=== PATIENT | female | born 1980 | race Two or more races ===

== ENCOUNTER 2020-04-15 08:15 | Outpatient (REF) | payer OTHER, SELFPAY | END 2020-04-15 08:16 | disposition home or self-care (01) | LOC: HO.LAB 08:15 | PROVIDERS: Visit Provider Internal Medicine | DX: Z20.822 Contact with and (suspected) exposure to COVID-19 (principal) | CPT/HCPCS: 36415; C9803; U0003; U0005 ==

== ENCOUNTER 2020-04-26 07:51 | Outpatient (REF) | payer OTHER, SELFPAY | END 2020-04-26 07:52 | disposition home or self-care (01) | LOC: HO.LAB 07:51 | PROVIDERS: Visit Provider Internal Medicine | DX: Z20.822 Contact with and (suspected) exposure to COVID-19 (principal) | CPT/HCPCS: 36415; C9803; U0003; U0005 ==

== ENCOUNTER 2021-02-24 10:10 | Outpatient (REF) | payer OTHER, SELFPAY ==
[2021-02-24 11:44] LABS: COVID-19 Test Positive (Negative); IDNOW Serial# 55D5AD1C
== END 2021-02-24 10:11 | disposition home or self-care (01) ==
LOC: HO.LAB 10:10
PROVIDERS: Visit Provider Internal Medicine
DX: Z20.822 Contact with and (suspected) exposure to COVID-19 (principal)
CPT/HCPCS: 36415; 87635; C9803

== ENCOUNTER 2021-03-09 13:16 | Outpatient (REF) | payer OTHER, SELFPAY ==
[2021-03-09 14:46] LABS: Binax Internal Control QC Valid; Binax Now Covid-19 Ag Negative (Negative)
== END 2021-03-09 13:17 | disposition home or self-care (01) ==
LOC: HO.LAB 13:16
PROVIDERS: Visit Provider Internal Medicine
DX: Z20.822 Contact with and (suspected) exposure to COVID-19 (principal)
CPT/HCPCS: C9803

== ENCOUNTER 2021-07-14 15:34 | Outpatient (REF) | payer OTHER, SELFPAY ==
--- NOTE | ~2021-07-14 | MM_ITS ---
EXAMINATION: MM SCREENING DIGITAL BREAST TOMOSYNTHESIS, BILATERAL CLINICAL INFORMATION: Screening. Asymptomatic. The lifetime risk of breast cancer based on the Tyrer-Cuzick Model is 8%. COMPARISON: Mammography: 01/09/2014 TECHNIQUE: Digital breast tomosynthesis is performed in both the craniocaudal and mediolateral oblique views along with computer-aided detection (CAD). Synthesized 2D images are generated from the tomosynthesis. FINDINGS: There are scattered areas of fibroglandular density (ACR BI-RADS breast composition Category b). There are no significant masses, abnormal calcifications, or other abnormalities. No developing density or interval architectural abnormality. The axilla and skin contours are unremarkable. No significant changes. MM/MM tomosynthesis screening BI IMPRESSION: No mammographic evidence of malignancy. ASSESSMENT: BI-RADS 1: Negative RECOMMENDATION: Routine annual mammography screening. This patient's information was entered into a reminder system with a target due date for their next mammogram.
== END 2021-07-14 15:35 | disposition home or self-care (01) ==
LOC: HO.MAMMO 15:34
DX: Z12.31 Encounter for screening mammogram for malignant neoplasm of breast (principal)
CPT/HCPCS: 77063; 77067

== ENCOUNTER 2021-09-20 08:16 | Outpatient (REF) | payer OTHER, SELFPAY ==
[2021-09-20 09:40] LABS: HBsAGNum1 0.34 S/CO (0.00-0.99); HIV AB/AG Nonreactive (Nonreactive); HIV Num 1 0.07 S/CO (0.00-0.99); Hepatitis B Surface Antigen Negative (Negative); ~HepC Num1 0.09 S/CO (0.00-0.79); ~Hepatitis C Antibody Nonreactive (Nonreactive)
[2021-09-20 18:33] LABS: CT PCR NOT DETECTED (Not Detect.); NG PCR NOT DETECTED (Not Detect.)
[2021-09-21 07:05] LABS: Syphilis Screen Nonreactive (Nonreactive)
[2021-09-21 13:04] LABS: BV Int Neg Control Negative (Negative); BV Int Pos Control Positive (Positive)
[2021-09-26 23:27] LABS: HPV mRNA E6/E7 rflx Not Detected (Not Detected)
== END 2021-09-20 08:17 | disposition home or self-care (01) ==
LOC: HO.LAB 08:16
PROVIDERS: Visit Provider Obstetrics & Gynecology
DX: Z01.419 Encounter for gynecological examination (general) (routine) without abnormal findings (principal); Z11.51 Encounter for screening for human papillomavirus (HPV); Z11.3 Encounter for screening for infections with a predominantly sexual mode of transmission
CPT/HCPCS: 36415; 86780; 86803; 87340; 87389; 87480; 87491; 87510; 87591; 87624; 87660; 88142

== ENCOUNTER 2022-04-25 13:48 | Outpatient (REF) | payer OTHER, SELFPAY ==
[2022-04-25 15:08] LABS: Hematocrit 36.4 % (37.0-47.0); Hemoglobin 11.7 g/dl (12.0-16.0); Mean Corpuscular HGB Conc 32.1 g/dl (31.0-35.0); Mean Corpuscular Hemoglobin 27.7 pg (27.0-33.0); Mean Corpuscular Volume 86.1 fL (80.0-98.0); Platelet Count 261 X10*3/uL (160-400); Red Blood Count 4.23 X10*6/uL (4.20-5.50); Red Cell Distribution Width 16.2 % (11.0-16.0); White Blood Count 7.1 X10*3/uL (4.8-10.8)
[2022-04-25 16:05] LABS: HCG Quantitative < 2 mIU/mL; TSH reflex Free T4 0.63 uIU/mL (0.32-4.0)
[2022-04-25 18:37] LABS: CT PCR NOT DETECTED (Not Detect.); NG PCR NOT DETECTED (Not Detect.)
== END 2022-04-25 13:49 | disposition home or self-care (01) ==
LOC: HO.LNP 13:48
PROVIDERS: Visit Provider Obstetrics & Gynecology
DX: N93.9 Abnormal uterine and vaginal bleeding, unspecified (principal); Z11.3 Encounter for screening for infections with a predominantly sexual mode of transmission
CPT/HCPCS: 0353U; 84443; 84702; 85027; 99212

== ENCOUNTER 2022-04-30 15:57 | Emergency (ER) | payer OTHER, SELFPAY ==
--- NOTE | ~2022-04-30 | US_ITS ---
EXAMINATION: US PELVIS CLINICAL INFORMATION: Left lower quadrant pain. LMP 04/17/2022. COMPARISON: CT abdomen/pelvis 11/19/2018. TECHNIQUE: Ultrasound of the pelvis is performed using both transabdominal and transvaginal transducers along with Doppler. Transvaginal imaging is performed due to inadequate visualization transabdominally. FINDINGS: The uterus is anteverted and measures 8.2 x 5 x 7 cm. There is suggestion of diffuse thickness and heterogeneity of the junctional zone/myometrium. No focal uterine mass. The endometrium measures 0.5 cm in thickness. Nabothian cysts are identified in the cervix. The ovaries are normal in morphology with preserved flow at the moment of this examination. The right ovary measures 2.5 x 1.6 x 2.8 cm, 6 mL and the left ovary measures 3.5 x 1.8 x 2.3 cm, 7.6 mL. Multiple bilateral follicles are noted. No suspicious ovarian lesion. No free fluid. US/US pelvic and transvaginal IMPRESSION: 1. No evidence of ovarian torsion at the moment of this examination. 2. Suggestion of diffuse thickening and heterogeneity of the junctional zone/myometrium which could be seen in the setting of adenomyosis in the appropriate clinical context. If indicated, correlation with an MR of the pelvis with and without intravenous contrast could be obtained.
--- NOTE | 2022-04-30 16:28 | ED.ABDPAIN ---
HPI - Abdominal Pain General Chief Complaint: Urogenital-Female <Danica Chavez NP - Last Filed: 04/30/22 16:31> Stated Complaint: abd, back and vaginal pain, left breast pressure <Danica Chavez NP - Last Filed: 04/30/22 16:31> Time Seen by Provider: 04/30/22 17:10 <Danica Chavez NP - Last Filed: 04/30/22 16:31> Source: patient <Rubén Holguin MD - Last Filed: 04/30/22 20:06> Mode of arrival: ambulatory <Rubén Holguin MD - Last Filed: 04/30/22 20:06> Limitations: no limitations <Rubén Holguin MD - Last Filed: 04/30/22 20:06> History of Present Illness HPI narrative: 41-year-old female who presents emergency department for irregular vaginal bleeding, body, weakness and fatigue. The patient states that last year her menstrual periods became heavier than usual and she thought that it was secondary to being premenopausal. She states that she did not have a menstrual period since October 2021 and then she started bleeding approximately 2 weeks prior. She states that the bleeding was heavier than usual and she had large blood clots. She also had pelvic pain. She was seen on 04/25/[address]YN Dr. Ashlee Issa and I did review his office note. She was diagnosed with irregular menstrual bleeding and had a workup which included labs and was scheduled for an outpatient ultrasound. Patient came to emergency department today because she states that she is having diffuse body pain. She states she is having pain in both of her shoulders and upper back. She is also having pain in her legs bilaterally. She states she had subjective fever but no chills, she has had a nonproductive cough, she states she has chest pain with coughing. She states she had several episodes of vomiting and diarrhea 2 days prior. She states that her vaginal bleeding has resolved. She states she has been taking ibuprofen 800 mg 3 times a day with no relief of her pain. She was concerned about her pain so she came to the emergency department for evaluation. <Rubén Holguin MD - Last Filed: 04/30/22 20:06> Related Data Home Medications: Home Medications Medication Instructions Recorded Confirmed albuterol sulfate 90 mcg/actuation 2 puff inhalation Q6H PRN 09/20/21 aerosol inhaler Previous Rx's Medication Instructions Recorded metronidazole 500 mg tablet 500 mg PO BID 7 days #14 tabs 09/21/21 fluconazole 150 mg tablet 150 mg PO ONCE 1 day #1 tab 11/15/21 ondansetron 4 mg disintegrating 4 mg PO Q6-8H PRN nausea and 04/30/22 tablet vomiting #14 tabs oxycodone 5 mg tablet 5 mg PO Q4H PRN pain #10 tabs 04/30/22 <Danica Chavez NP - Last Filed: 04/30/22 16:31> Allergies/Adverse Reactions: Allergies Allergy/AdvReac Type Severity Reaction Status Date / Time No Known Allergies Allergy Unverified 04/25/22 13:58 <Danica Chavez NP - Last Filed: 04/30/22 16:31> Review of Systems Review of Systems Yes all other systems are reviewed and are negative <Rubén Holguin MD - Last Filed: 04/30/22 20:06> [facility] Past Medical History [facility] Narrative: Past medical history: None. Past surgical history: None. Social history: She occasionally smokes cigarettes. She occasionally drinks alcohol. She denies drug use. <Rubén Holguin MD - Last Filed: 04/30/22 20:06> Medical History: Medical History Asthma <Danica Chavez NP - Last Filed: 04/30/22 16:31> Surgical History: Surgical History H/O tubal ligation <Danica Chavez NP - Last Filed: 04/30/22 16:31> Family History Family History: Family History Mother Diabetes HTN (hypertension) Asthma <Danica Chavez NP - Last Filed: 04/30/22 16:31> Social History Social History: Social History Household Members: Children Housing: [facility] Alcohol intake: current Alcohol intake frequency: holidays/special occasions only Patient Tobacco Use Status: Current everyday Tobacco user Tobacco use type: Cigarette Cigarettes Per Day: 2 Years Smoked: 10 Advance Directives: No Advance Directives Information Provided: Yes <Danica Chavez NP - Last Filed: 04/30/22 16:31> Physical Exam ED Vital Signs: Vital Signs - 24 hr 04/30/22 16:29 04/30/22 17:15 Temperature 98 F 98.2 F Pulse Rate 71 71 Respiratory Rate 18 18 Blood Pressure 173/80 H 123/71 Pulse Oximetry 98 99 Oxygen Delivery Method Room Air Room Air BMI result Body Mass Index 26.6 <Danica Chavez NP - Last Filed: 04/30/22 16:31> Vital Signs - 24 hr 04/30/22 16:29 04/30/22 17:15 Temperature 98 F 98.2 F Pulse Rate 71 71 Respiratory Rate 18 18 Blood Pressure 173/80 H 123/71 Pulse Oximetry 98 99 Oxygen Delivery Method Room Air Room Air BMI result Body Mass Index 26.6 <Rubén Holguin MD - Last Filed: 04/30/22 20:06> Const Other: Awake, alert, female patient, she does not appear to be in distress, she answers all questions appropriately <Rubén Holguin MD - Last Filed: 04/30/22 20:06> HENMT Head: Yes normal to inspection, Yes normocephalic and Yes atraumatic <Rubén Holguin MD - Last Filed: 04/30/22 20:06> Ears: external ears normal <Rubén Holguin MD - Last Filed: 04/30/22 20:06> General nose exam: Normal external nose present <Rubén Holguin MD - Last Filed: 04/30/22 20:06> Face and sinus: Yes normal facial exam <Rubén Holguin MD - Last Filed: 04/30/22 20:06> Mouth: Normal oral and palatal mucosa present <MD Oneida Degroot Last Filed: 04/30/22 20:06> Throat: Yes posterior oropharynx normal <MD Oneida Degroot Last Filed: 04/30/22 20:06> Eyes General: appearance normal, both eyes and all related structures <MD Oneida Degroot Last Filed: 04/30/22 20:06> Pupils: Equal, round and reactive pupils present <MD Oneida Degroot Last Filed: 04/30/22 20:06> Neck Neck: Yes normal visual inspection, Yes no lymphadenopathy, Yes trachea midline and Yes supple <MD Oneida Degroot Last Filed: 04/30/22 20:06> Chest Chest palpation & inspection: normal inspection of the chest and normal palpation of entire chest wall <MD Oneida Degroot Last Filed: 04/30/22 20:06> Resp Effort & Inspection: normal respiratory effort and able to speak in complete sentences <MD Oneida Degroot Last Filed: 04/30/22 20:06> Auscultation: clear to auscultation bilaterally <MD Oneida Degroot Last Filed: 04/30/22 20:06> Cardio Rate: regular rate <MD Oneida Degroot Last Filed: 04/30/22 20:06> Rhythm: regular rhythm <MD Oneida Degroto Last Filed: 04/30/22 20:06> Heart sounds: S1 normal heart sound present, S2 normal heart sound present and no murmurs <MD Oneida Degroot Last Filed: 04/30/22 20:06> GI Inspection: Yes normal to inspection <MD Oneida Degroot Last Filed: 04/30/22 20:06> Palpation (GI): Soft to palpation, Tenderness to palpation present (GI) (Mild suprapubic tenderness) and no guarding <MD Oneida Degroot Last Filed: 04/30/22 20:06> Auscultation: normal bowel sounds <MD Oneida Degroot Last Filed: 04/30/22 20:06> General: Yes no CVA tenderness <MD Oneida Degroot Last Filed: 04/30/22 20:06> Back/Spine/Pelvis Back: no CVA tenderness <Rubén Holguin MD - Last Filed: 04/30/22 20:06> Skin General skin exam: no rashes or lesions noted <Rubén Holguin MD - Last Filed: 04/30/22 20:06> Neuro Cranial nerves: Yes CN's II-XII intact bilaterally and Yes Equal, round and reactive pupils present <Rubén Holguin MD - Last Filed: 04/30/22 20:06> Cognition (Neuro): normal cognition <Rubén Holguin MD - Last Filed: 04/30/22 20:06> Motor exam (neuro): 5/5 motor strength present throughout <Rubén Holguin MD - Last Filed: 04/30/22 20:06> Extrem Other: Patient has tenderness palpation of her shoulders bilaterally, muscles of her thoracic back, muscles of her thighs, no trauma, she has full range of motion, she is able walk without any difficulty <Rubén Holguin MD - Last Filed: 04/30/22 20:06> Psych Appearance: grossly normal <Rubén Holguin MD - Last Filed: 04/30/22 20:06> Speech and movement: Normal speech and movement present <Rubén Holguin MD - Last Filed: 04/30/22 20:06> Affect: normal affect <Rubén Holguin MD - Last Filed: 04/30/22 20:06> Attitude: cooperative <Rubén Holguin MD - Last Filed: 04/30/22 20:06> Course Course Course Narrative: This is a rapid medical exam. Deferred additional HPI, ROS, PE to primary provider. 41 yo female here with left sided lower abdominal pain x 1 week. No nausea/vomiting/diarrhea/urinary symptoms. Initially had heavy menses which is now resolved. Seen by DOOR FURRING INSTALLER (ashlee) and had pelvic exam and STI testing. Pending outpatient pelvic US. Concerned d/t bleeding resolving but still having pain. Will obtain labs, UA, pelvic US. VSS <Danica Chavez NP - Last Filed: 04/30/22 16:31> Medical Decision Making Medical Decision Making MDM Narrative: 41-year-old female who presents emergency department for evaluation of change in her menstrual periods for 1 year. She states that over the year her menstrual periods were very heavy. She had no menstrual periods of November 17 and had her 1st episode of vaginal 2 weeks prior. She states that the bleeding was very heavy and she was having blood clots. She did follow-up with her OBGYN Dr. Rosado on 04/25/2022. He examined her and ordered labs and an outpatient ultrasound. The patient states that the menstrual bleeding has stopped but she is having suprapubic tenderness. She is also complaining of muscle pain in her arms, legs upper back and chest. She had subjective fever, chills she has had a nonproductive cough, several episodes of vomiting and diarrhea. I did review the [facility] history and mine is different. Labs: Ordered by provider in triage: CBC, BMP, liver panel, urinalysis, urine test, ultrasound complete, ultrasound pelvic with transvaginal 1934: Laboratory evaluation revealed a Mild anemia with an H&H of 11.5 and 36.0 this is similar to labs done on 04/25/2022. CMP was normal. Urinalysis was negative. Urine test was negative. The patient chlamydia and gonorrhea were negative done by Dr. Rosado 04/25/2022. The ultrasound did reveal diffuse thickness and heterogeneity of the junctional zone/myometrium which is nonspecific and can be followed up by Dr. Rosado. 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 I did discuss this with the patient. The patient was given Zofran ODT 4 mg and ibuprofen 400 mg orally. Patient was advised to take ibuprofen and Tylenol and for pain not relieved by these medications she was prescribed oxycodone. She was also given prescription for Zofran ODT. 1957: I did discuss the patient's presentation with Dr. Rosado over tiger text. After this discussion I did do a pelvic exam on the patient, the patient has a normal appearing cervix, no vaginal or cervical discharge, no cervical mention tenderness, mild tenderness with palpation over the uterus, no adnexal tenderness. The exam is not consistent with PID. Dr. Rosado he will follow the patient up in the office in 1-2 days and ask the patient to come back to the ED if patient has fever, persistent or worsening pelvic pain heavy bleeding or nausea vomiting. <Rubén Holguin MD - Last Filed: 04/30/22 20:06> Differential Diagnosis Differential diagnosis includes was not limited to pelvic inflammatory disease, uterine cancer, fibroids of the uterus, viral syndrome, urinary tract infection, <Rubén Holguin MD - Last Filed: 04/30/22 20:06> Consult Healthcare Provider Management of the patient was discussed with: Mediator (OBGYDr. Ashlee Valentino) <Rubén Holguin MD - Last Filed: 04/30/22 20:06> Lab Data [facility] Lab Attestation statement: I reviewed the patient's lab results. <Rubén Holguin MD - Last Filed: 04/30/22 20:06> Please see [facility] for my discussion <Rubén Holguin MD - Last Filed: 04/30/22 20:06> Result Diagrams: 04/30/22 17:01 04/30/22 17:01 <aDnica Chavez NP - Last Filed: 04/30/22 16:31> Labs: Lab Results 04/30/22 04/30/22 04/30/22 Range/Units 16:59 16:59 17:01 WBC 7.8 (4.8-10.8) X10*3/uL RBC 4.17 L (4.20-5.50) X10*6/uL Hgb 11.5 L (12.0-16.0) g/dl Hct 36.0 L (37.0-47.0) % MCV 86.3 (80.0-98.0) fL MCH 27.6 (27.0-33.0) pg MCHC 31.9 (31.0-35.0) g/dl RDW 16.0 (11.0-16.0) % Plt Count 249 (160-400) X10*3/uL MPV 11.0 (9.4-12.3) fL Immature Gran % (Auto) 0.3 (0.0-0.4) % Neut % (Auto) 63.8 (45-73) % Lymph % (Auto) 27.7 (20-40) % [place] % (Auto) 6.0 (2-11) % Eos % (Auto) 1.8 (0-4) % Baso % (Auto) 0.4 (0-2) % Lymph # (Auto) 2.2 (1.2-4.9) X10*3/uL [place] # (Auto) 0.5 (0.1-1.2) X10*3/uL Eos # (Auto) 0.1 (0.0-0.4) X10*3/uL Baso # (Auto) 0.0 (0.0-0.2) X10*3/uL Abs Immat Gran (auto) 0.02 (0.00-0.03) X10*3/uL Absolute Neuts (auto) 5.0 (2.0-8.3) x10*3/uL Absolute Nucleated RBC 0.000 (0.0-0.012) X10*3/uL Nucleated RBC % (auto) 0.0 (0.0-0.2) /100WBC Sodium (135-145) mmol/L Potassium (3.3-5.1) mmol/L Chloride (96-108) mmol/L Carbon Dioxide (22-29) mmol/L Anion Gap (12-20) BUN (9-16) mg/dL Creatinine (0.5-1.4) mg/dL Estim Creat Clear Calc Estimated GFR Random Glucose (60-115) mg/dL Calcium (8.4-10.2) mg/dL Total Bilirubin (0.0-1.0) mg/dL Direct Bilirubin (0.0-0.5) mg/dL AST (5-31) U/L ALT (0-31) U/L Alkaline Phosphatase (39-117) U/L Total Protein (6.5-8.0) g/dL Albumin (3.5-5.0) g/dL Urine Color Yellow Urine Appearance Clear Urine pH 7.5 (5.0-9.0) Ur Specific [place] 1.015 (1.005-1.025) Urine Protein Negative (Neg-Trace) mg/dL Urine Glucose (UA) Negative (Negative) mg/dL Urine Ketones Negative (Negative) mg/dL Urine Blood Negative (Negative) Urine Nitrite Negative (Negative) Ur Leukocyte Esterase Negative (Negative) Urine Test NEGATIVE (NEGATIVE) 04/30/22 Range/Units 17:01 WBC (4.8-10.8) X10*3/uL RBC (4.20-5.50) X10*6/uL Hgb (12.0-16.0) g/dl Hct (37.0-47.0) % MCV (80.0-98.0) fL MCH (27.0-33.0) pg MCHC (31.0-35.0) g/dl RDW (11.0-16.0) % Plt Count (160-400) X10*3/uL MPV (9.4-12.3) fL Immature Gran % (Auto) (0.0-0.4) % Neut % (Auto) (45-73) % Lymph % (Auto) (20-40) % [place] % (Auto) (2-11) % Eos % (Auto) (0-4) % Baso % (Auto) (0-2) % Lymph # (Auto) (1.2-4.9) X10*3/uL [place] # (Auto) (0.1-1.2) X10*3/uL Eos # (Auto) (0.0-0.4) X10*3/uL Baso # (Auto) (0.0-0.2) X10*3/uL Abs Immat Gran (auto) (0.00-0.03) X10*3/uL Absolute Neuts (auto) (2.0-8.3) x10*3/uL Absolute Nucleated RBC (0.0-0.012) X10*3/uL Nucleated RBC % (auto) (0.0-0.2) /100WBC Sodium 141 (135-145) mmol/L Potassium 3.9 (3.3-5.1) mmol/L Chloride 106 (96-108) mmol/L Carbon Dioxide 25 (22-29) mmol/L Anion Gap 14 (12-20) BUN 11 (9-16) mg/dL Creatinine 0.74 (0.5-1.4) mg/dL Estim Creat Clear Calc 99.8 Estimated GFR > 60 Random Glucose 83 (60-115) mg/dL Calcium 8.7 (8.4-10.2) mg/dL Total Bilirubin 0.3 (0.0-1.0) mg/dL Direct Bilirubin < 0.2 (0.0-0.5) mg/dL AST 17 (5-31) U/L ALT 12 (0-31) U/L Alkaline Phosphatase 55 (39-117) U/L Total Protein 6.5 (6.5-8.0) g/dL Albumin 4.0 (3.5-5.0) g/dL Urine Color Urine Appearance Urine pH (5.0-9.0) Ur Specific [place] (1.005-1.025) Urine Protein (Neg-Trace) mg/dL Urine Glucose (UA) (Negative) mg/dL Urine Ketones (Negative) mg/dL Urine Blood (Negative) Urine Nitrite (Negative) Ur Leukocyte Esterase (Negative) Urine Test (NEGATIVE) <Danica Chavez DICTAPHONE OPERATOR - Last Filed: 04/30/22 16:31> Lab Results 04/30/22 04/30/22 04/30/22 Range/Units 16:59 16:59 17:01 WBC 7.8 (4.8-10.8) X10*3/uL RBC 4.17 L (4.20-5.50) X10*6/uL Hgb 11.5 L (12.0-16.0) g/dl Hct 36.0 L (37.0-47.0) % MCV 86.3 (80.0-98.0) fL MCH 27.6 (27.0-33.0) pg MCHC 31.9 (31.0-35.0) g/dl RDW 16.0 (11.0-16.0) % Plt Count 249 (160-400) X10*3/uL MPV 11.0 (9.4-12.3) fL Immature Gran % (Auto) 0.3 (0.0-0.4) % Neut % (Auto) 63.8 (45-73) % Lymph % (Auto) 27.7 (20-40) % [place] % (Auto) 6.0 (2-11) % Eos % (Auto) 1.8 (0-4) % Baso % (Auto) 0.4 (0-2) % Lymph # (Auto) 2.2 (1.2-4.9) X10*3/uL [place] # (Auto) 0.5 (0.1-1.2) X10*3/uL Eos # (Auto) 0.1 (0.0-0.4) X10*3/uL Baso # (Auto) 0.0 (0.0-0.2) X10*3/uL Abs Immat Gran (auto) 0.02 (0.00-0.03) X10*3/uL Absolute Neuts (auto) 5.0 (2.0-8.3) x10*3/uL Absolute Nucleated RBC 0.000 (0.0-0.012) X10*3/uL Nucleated RBC % (auto) 0.0 (0.0-0.2) /100WBC Sodium (135-145) mmol/L Potassium (3.3-5.1) mmol/L Chloride (96-108) mmol/L Carbon Dioxide (22-29) mmol/L Anion Gap (12-20) BUN (9-16) mg/dL Creatinine (0.5-1.4) mg/dL Estim Creat Clear Calc Estimated GFR Random Glucose (60-115) mg/dL Calcium (8.4-10.2) mg/dL Total Bilirubin (0.0-1.0) mg/dL Direct Bilirubin (0.0-0.5) mg/dL AST (5-31) U/L ALT (0-31) U/L Alkaline Phosphatase (39-117) U/L Total Protein (6.5-8.0) g/dL Albumin (3.5-5.0) g/dL Urine Color Yellow Urine Appearance Clear Urine pH 7.5 (5.0-9.0) Ur Specific [place] 1.015 (1.005-1.025) Urine Protein Negative (Neg-Trace) mg/dL Urine Glucose (UA) Negative (Negative) mg/dL Urine Ketones Negative (Negative) mg/dL Urine Blood Negative (Negative) Urine Nitrite Negative (Negative) Ur Leukocyte Esterase Negative (Negative) Urine Test NEGATIVE (NEGATIVE) 04/30/22 Range/Units 17:01 WBC (4.8-10.8) X10*3/uL RBC (4.20-5.50) X10*6/uL Hgb (12.0-16.0) g/dl Hct (37.0-47.0) % MCV (80.0-98.0) fL MCH (27.0-33.0) pg MCHC (31.0-35.0) g/dl RDW (11.0-16.0) % Plt Count (160-400) X10*3/uL MPV (9.4-12.3) fL Immature Gran % (Auto) (0.0-0.4) % Neut % (Auto) (45-73) % Lymph % (Auto) (20-40) % [place] % (Auto) (2-11) % Eos % (Auto) (0-4) % Baso % (Auto) (0-2) % Lymph # (Auto) (1.2-4.9) X10*3/uL [place] # (Auto) (0.1-1.2) X10*3/uL Eos # (Auto) (0.0-0.4) X10*3/uL Baso # (Auto) (0.0-0.2) X10*3/uL Abs Immat Gran (auto) (0.00-0.03) X10*3/uL Absolute Neuts (auto) (2.0-8.3) x10*3/uL Absolute Nucleated RBC (0.0-0.012) X10*3/uL Nucleated RBC % (auto) (0.0-0.2) /100WBC Sodium 141 (135-145) mmol/L Potassium 3.9 (3.3-5.1) mmol/L Chloride 106 (96-108) mmol/L Carbon Dioxide 25 (22-29) mmol/L Anion Gap 14 (12-20) BUN 11 (9-16) mg/dL Creatinine 0.74 (0.5-1.4) mg/dL Estim Creat Clear Calc 99.8 Estimated GFR > 60 Random Glucose 83 (60-115) mg/dL Calcium 8.7 (8.4-10.2) mg/dL Total Bilirubin 0.3 (0.0-1.0) mg/dL Direct Bilirubin < 0.2 (0.0-0.5) mg/dL AST 17 (5-31) U/L ALT 12 (0-31) U/L Alkaline Phosphatase 55 (39-117) U/L Total Protein 6.5 (6.5-8.0) g/dL Albumin 4.0 (3.5-5.0) g/dL Urine Color Urine Appearance Urine pH (5.0-9.0) Ur Specific [place] (1.005-1.025) Urine Protein (Neg-Trace) mg/dL Urine Glucose (UA) (Negative) mg/dL Urine Ketones (Negative) mg/dL Urine Blood (Negative) Urine Nitrite (Negative) Ur Leukocyte Esterase (Negative) Urine Test (NEGATIVE) <Rubén Holguin MD - Last Filed: 04/30/22 20:06> Radiology Impression Discussion of test interpretation with radiology: I have reviewed the radiologist's reading. <Rubén Holguin MD - Last Filed: 04/30/22 20:06> Radiologist Impression: EXAMINATION: US PELVIS CLINICAL INFORMATION: Left lower quadrant pain. LMP 04/17/2022. COMPARISON: CT abdomen/pelvis 11/19/2018. TECHNIQUE: Ultrasound of the pelvis is performed using both transabdominal and transvaginal transducers along with Doppler. Transvaginal imaging is performed due to inadequate visualization transabdominally. FINDINGS: The uterus is anteverted and measures 8.2 x 5 x 7 cm. There is suggestion of diffuse thickness and heterogeneity of the junctional zone/myometrium. No focal uterine mass. The endometrium measures 0.5 cm in thickness. Nabothian cysts are identified in the cervix. The ovaries are normal in morphology with preserved flow at the moment of this examination. The right ovary measures 2.5 x 1.6 x 2.8 cm, 6 mL and the left ovary measures 3.5 x 1.8 x 2.3 cm, 7.6 mL. Multiple bilateral follicles are noted. No suspicious ovarian lesion. No free fluid. US/US pelvic and transvaginal IMPRESSION: 1. No evidence of ovarian torsion at the moment of this examination. 2. Suggestion of diffuse thickening and heterogeneity of the junctional zone/myometrium which could be seen in the setting of adenomyosis in the appropriate clinical context. If indicated, correlation with an MR of the pelvis with and without intravenous contrast could be obtained. <Rubén Holguin MD - Last Filed: 04/30/22 20:06> External Record Review External record reviewed: Office record and Other ([place] prescription monitoring program-no prescriptions for controlled substances in 1 year.) <Rubén Holguin MD - Last Filed: 04/30/22 20:06> Discharge Plan Discharge Clinical Impression: Irregular menstruation, Acute viral syndrome <Danica Chavez NP - Last Filed: 04/30/22 16:31> Patient Disposition: Home, Self-Care <Danica Chavez NP - Last Filed: 04/30/22 16:31> Instructions: Viral Syndrome (ED) <Danica Chavez NP - Last Filed: 04/30/22 16:31> Additional Instructions: Your blood work was normal, you have mild anemia but it is unchanged from the office blood work that you had on 04/25/2022. This is not the cause of your symptoms. The rest of your blood work was normal. Your urine was negative for infection. Your test was negative. The ultrasound did reveal thickening of the lining of the uterus but I do not think this is causing the muscle pain that your having and the chest pain that your having. I suspect that your having a viral infection. Take Zofran ODT 4 mg pills, 1 pill dissolved in your mouth every 8 hours as needed for nausea and vomiting. Take ibuprofen 200 mg pills, 2 pills every 6 hours as needed for pain. Take Tylenol (acetaminophen) 325 mg pills, 2 pills every 4-6 hours as needed for pain. For pain not relieved by ibuprofen or Tylenol take oxycodone 5 mg pills, 1 pill every 4 hours as needed for pain. Do not drive or work while taking this medication since they can cause sleepiness. Oxycodone is a narcotic medication that can be addicting. If you are concerned about addiction you can ask the pharmacist for less pills or do not get this prescription filled. Follow-up with your doctor in 2 days. Also follow-up with Dr. Rosado to discuss the ultrasound results. Please return to the emergency department if your symptoms get worse or if you develop any symptoms that are concerning to you. Your pelvic exam was normal. Dr. Rosado wants to follow you up in the office in 1-2 days. He wants you to return to the emergency department if you develop fever, persistent or worsening pelvic pain, heavy vaginal bleeding or persistent nausea and vomiting not relieved by the Zofran. <Danica Chavez NP - Last Filed: 04/30/22 16:31> Prescriptions: New ondansetron 4 mg tablet,disintegrating 4 mg PO Q6-8H PRN (Reason: nausea and vomiting) Qty: 14 0RF oxycodone 5 mg tablet 5 mg PO Q4H PRN (Reason: pain) Qty: 10 0RF Rx Instructions: Patient may request partial fill; Partial Fill upon patient request. No Action metronidazole 500 mg tablet 500 mg PO BID 7 Days Qty: 14 0RF fluconazole 150 mg tablet 150 mg PO ONCE 1 Days Qty: 1 0RF albuterol sulfate 90 mcg/actuation HFA aerosol inhaler 2 puff inhalation Q6H PRN <Danica Chavez NP - Last Filed: 04/30/22 16:31> Referrals: Soteor Rosado MD [Physician] - 2 days (Follow-up for irregular, heavy menstrual periods, ultrasound in ED) <Danica Chavez NP - Last Filed: 04/30/22 16:31>
[2022-04-30 16:29] VITALS: BP 173/80; PULSE 71; RESP 18; TEMP 36.6; O2SAT 98; BMI 26.6
[2022-04-30 17:05] LABS: MANUAL DIFF FLAG NO
[2022-04-30 17:07] LABS: Basophils Percent Auto 0.4 % (0-2); Eosinophils Absolute Auto 0.1 X10*3/uL (0.0-0.4); Eosinophils Percent Auto 1.8 % (0-4); Hemoglobin 11.5 g/dl (12.0-16.0); Imm Gran Abs Auto 0.02 X10*3/uL (0.00-0.03); Imm Gran Pct Auto 0.3 % (0.0-0.4); Lymphocytes Absolute Auto 2.2 X10*3/uL (1.2-4.9); Lymphocytes Percent Auto 27.7 % (20-40); Mean Corpuscular HGB Conc 31.9 g/dl (31.0-35.0); Mean Corpuscular Hemoglobin 27.6 pg (27.0-33.0); Mean Corpuscular Volume 86.3 fL (80.0-98.0); Monocytes Absolute Auto 0.5 X10*3/uL (0.1-1.2); Neutrophils Percent Auto 63.8 % (45-73); Platelet Count 249 X10*3/uL (160-400); Red Blood Count 4.17 X10*6/uL (4.20-5.50); White Blood Count 7.8 X10*3/uL (4.8-10.8)
[2022-04-30 17:08] LABS: Appearance Urine Clear; Color Urine Yellow; Glucose Urine UA Negative (Negative); Leukocyte Esterase Urine Negative (Negative); Nitrite Urine Negative (Negative); PH 7.5 (5.0-9.0); Specific Gravity - Urine 1.015 (1.005-1.025); Urine Blood Negative (Negative); Urine Ketones Negative (Negative); Urine Protein Negative (Neg-Trace)
[2022-04-30 17:13] LABS: UPreg QC Valid YES; Urine Pregnancy NEGATIVE (NEGATIVE)
[2022-04-30 17:15] VITALS: BP 123/71; PULSE 71; RESP 18; TEMP 36.8; O2SAT 99
[2022-04-30 17:22] LABS: Alanine Aminotransferase 12 U/L (0-31); Alkaline Phosphatase 55 U/L (39-117); Anion Gap 14 (12-20); Aspartate Amino Transferase 17 U/L (5-31); Bilirubin Direct < 0.2 mg/dL (0.0-0.5); Bilirubin Total 0.3 mg/dL (0.0-1.0); Blood Urea Nitrogen 11 mg/dL (9-16); Calcium 8.7 mg/dL (8.4-10.2); Carbon Dioxide 25 mmol/L (22-29); Chloride 106 mmol/L (96-108); Creatinine Clr Calc Pharmacy 99.8; Estimated Glomerular Filt Rate > 60; Glucose Random 83 mg/dL (60-115); Potassium 3.9 mmol/L (3.3-5.1); Sodium 141 mmol/L (135-145); Total Protein 6.5 g/dL (6.5-8.0)
--- NOTE | 2022-04-30 19:52 | P.CONOB_ITS ---
EMPLOYEE HEALTH NURSE - CN: HPI Data of Consult Consult date: 04/30/22 Primary Care Provider: Unknown Physician Consult Narrative Narrative: I was consulted on Feroz Pardo who is a 41 year old female?presenting to the emergency room irregular vaginal bleeding, body, weakness and fatigue associated with pelvic pain.? The patient was seen in the office on 04/25 for abnormal uterine bleeding and a workup was ordered.? The patient reports diffuse body pain associated with nonproductive cough . The patient states that her vaginal bleeding has resolved.? cc:: CC: OB [facility] Past Medical History Medical History Asthma Family History Family History Mother Diabetes HTN (hypertension) Asthma Surgical History Surgical History H/O tubal ligation Social History Social History Household Members: Children [facility] Alcohol intake: current Alcohol intake frequency: holidays/special occasions only Patient Tobacco Use Status: Current everyday Tobacco user Tobacco use type: Cigarette Cigarettes Per Day: 2 Years Smoked: 10 Advance Directives: No Advance Directives Information Provided: Yes Meds Allergies Allergy/AdvReac Type Severity Reaction Status Date / Time No Known Allergies Allergy Unverified 04/25/22 13:58 Home Medications Medication Instructions Recorded Confirmed Last Taken Type albuterol sulfate 90 mcg/actuation 2 puff inhalation Q6H PRN 09/20/21 Unknown History aerosol inhaler EMPLOYEE HEALTH NURSE Physical Exam Vitals Vital signs: Temp Pulse Resp BP Pulse Ox O2 Del Method 98.2 F 71 18 123/71 99 04/30/22 17:15 04/30/22 17:15 04/30/22 17:15 04/30/22 17:15 04/30/22 17:15 04/30/22 17:15 BMI result Body Mass Index 26.6 Additional Comments: Physical exam reported by Dr. Holguin as the following: Abdominal exam benign nontender, no guarding or rebound Pelvic exam within normal not consistent with PID, no evidence of vaginal bleeding and no tenderness EMPLOYEE HEALTH NURSE - Results Labs 04/30/22 17:01 04/30/22 17:01 Labs: Short CBC 04/30/22 Range/Units 17:01 WBC 7.8 (4.8-10.8) X10*3/uL Hgb 11.5 L (12.0-16.0) g/dl Hct 36.0 L (37.0-47.0) % Plt Count 249 (160-400) X10*3/uL BMP 04/30/22 17:01 Sodium 141 Potassium 3.9 Chloride 106 Carbon Dioxide 25 BUN 11 Creatinine 0.74 Calcium 8.7 Liver Function 04/30/22 Range/Units 17:01 Total Bilirubin 0.3 (0.0-1.0) mg/dL Direct Bilirubin < 0.2 (0.0-0.5) mg/dL AST 17 (5-31) U/L ALT 12 (0-31) U/L Alkaline Phosphatase 55 (39-117) U/L Albumin 4.0 (3.5-5.0) g/dL Urine 04/30/22 04/30/22 Range/Units 16:59 16:59 Urine Color Yellow Urine Appearance Clear Urine pH 7.5 (5.0-9.0) Ur Specific [place] 1.015 (1.005-1.025) Urine Protein Negative (Neg-Trace) mg/dL Urine Glucose (UA) Negative (Negative) mg/dL Urine Test NEGATIVE (NEGATIVE) Imaging US - abdomen: Radiologist's impression: ITS Impressions Pelvic/Transvag US 04/30/22 18:02 IMPRESSION: 1. No evidence of ovarian torsion at the moment of this examination. 2. Suggestion of diffuse thickening and heterogeneity of the junctional zone/myometrium which could be seen in the setting of adenomyosis in the appropriate clinical context. If indicated, correlation with an MR of the pelvis with and without intravenous contrast could be obtained. Assessment and Plan (1) Abnormal uterine bleeding: Status: Acute Plan I well defer the management of patient's non repair clerk symptoms including but not limited to body aches associated with cough and other symptoms to the emergency room team. Recommended the following to Dr. Holguin: Instructions to be given to the patient to come back to emergency room in case of fever above 100.4, persistent and/or worsening of pelvic pain, nausea or vomiting, heavy vaginal bleeding and follow-up in the office in 1-2 days. I spent a total of 20 minutes reviewing the chart, communicating with the emergency room provider and documenting in the medical record Time Spent With Patient Time: Total time managing care of this patient today ____ minutes.
--- NOTE | 2022-04-30 19:55 | PC.NURSE ---
this rn present at bedside as director of residence life for dr ojeda for pelvic exam. pt tolerated well.
[2022-04-30 20:30] VITALS: BP 132/71; PULSE 60; RESP 14; TEMP 36.8; O2SAT 98
[2022-04-30] MEDS: Ibuprofen 400 MG TABLET PO (20:31)
[2022-04-30] MEDS: Ondansetron ODT 4 MG TAB.RAPDIS TRANSLINGU (20:31)
--- NOTE | 2022-04-30 20:35 | PC.NURSE ---
pt medicated according to apr. pt reports 8/10 pain a this time. vss. skin pwd. pt ambulates independently. pt provided with discharge packet. pt verbalizes understanding of discharge plan
== END 2022-04-30 20:36 | disposition home or self-care (01) ==
PROVIDERS: Nurse Practitioner Family; Emergency Provider Emergency Medicine Emergency Medical Services
DX: N93.9 Abnormal uterine and vaginal bleeding, unspecified (principal); B34.9 Viral infection, unspecified; R10.2 Pelvic and perineal pain; Z20.822 Contact with and (suspected) exposure to COVID-19; Z20.828 Contact with and (suspected) exposure to other viral communicable diseases; Z79.899 Other long term (current) drug therapy
CPT/HCPCS: 36415; 76830; 76856; 80048; 80076; 81003; 81025; 85025; 99284

== ENCOUNTER 2022-05-15 10:47 | Outpatient (REF) | payer OTHER, SELFPAY | END 2022-05-15 10:48 | disposition home or self-care (01) | LOC: HO.LNP 10:47 | PROVIDERS: Visit Provider Obstetrics & Gynecology | DX: N93.9 Abnormal uterine and vaginal bleeding, unspecified (principal) | CPT/HCPCS: 58100; 81025; 88305 ==

== ENCOUNTER → 2022-06-28 09:43 | Outpatient (BNVA) | payer OTHER, SELFPAY | PROVIDERS: Visit Provider Obstetrics & Gynecology | DX: N93.9 Abnormal uterine and vaginal bleeding, unspecified (principal) | CPT/HCPCS: 99212 ==

== ENCOUNTER 2022-08-02 14:14 | Outpatient (REF) | payer OTHER, SELFPAY ==
--- NOTE | ~2022-08-02 | MM_ITS ---
EXAMINATION: MM SCREENING DIGITAL BREAST TOMOSYNTHESIS, BILATERAL CLINICAL INFORMATION: Screening. Asymptomatic. The lifetime risk of breast cancer based on the Tyrer-Cuzick Model is 10%. COMPARISON: Mammography: 07/14/2021, 01/09/2014 (baseline) TECHNIQUE: Digital breast tomosynthesis is performed in both the craniocaudal and mediolateral oblique views along with computer-aided detection (CAD). Synthesized 2D images are generated from the tomosynthesis. FINDINGS: There are scattered areas of fibroglandular density (ACR BI-RADS breast composition Category b). There are no significant masses, abnormal calcifications, or other abnormalities. Parenchymal pattern is similar to prior studies. There is no developing density or architectural abnormality. The axilla and skin contours are unremarkable. No significant changes. MM/MM tomosynthesis screening BI IMPRESSION: No mammographic evidence of malignancy. ASSESSMENT: BI-RADS 1: Negative RECOMMENDATION: Routine annual mammography screening. This patient's information was entered into a reminder system with a target due date for their next mammogram.
== END 2022-08-02 14:15 | disposition home or self-care (01) ==
LOC: HO.MAMMO 14:14
PROVIDERS: Visit Provider Obstetrics & Gynecology
DX: Z12.31 Encounter for screening mammogram for malignant neoplasm of breast (principal)
CPT/HCPCS: 77063; 77067

== ENCOUNTER 2022-09-25 08:26 | Outpatient (AMB) | payer OTHER, SELFPAY ==
[2022-09-25 08:34] VITALS: BMI 26.0
--- NOTE | 2022-09-25 08:34 | A.OFFVIS_ITS ---
Intake Vital Signs 09/25/22 08:34 Height 5 ft 5 in Weight 156 lb BMI 26.0 Intake Visit Reasons: Annual Security Solutions Engineer Required: No Information Interpreted: non-clinical & clinical Corporate Bond Trader: Corporate Bond Trader Present (Diana LNODONO) Accompanied by: Self / Same As Patient Allergies No Known Allergies Allergy (Unverified 09/25/22 08:35) HPI HPI Comments History of Present Illness Details Presenting for annual exam. Complaining of irregular menstrual cycles over the last few months , in addition to vaginal discharge associated was foul odor Last Pap/HPV was negative in 09/16 Last Mammogram was BI-RADS 1 in 08/18 [facility] Medical History Asthma Surgical History H/O tubal ligation Family History Mother Diabetes HTN (hypertension) Asthma Social History Household Members: Children [facility] Alcohol intake: current Alcohol intake frequency: a few times a week Patient Tobacco Use Status: Current everyday Tobacco user Tobacco use type: Cigarette Cigarettes Per Day: 2 Years Smoked: 10 Current occupational status: employed 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 Sexually active: No Sexual orientation: Straight/Heterosexual Gender identity: Female Female Reproductive History Menstrual Age of Menarche: 11 control method: permanent sterilization Total pregnancies: 6 Full term: 5 Number of Living Children: 5 Ab spontaneous: 1 Date of last pap smear: 09/22/21 Date of Mammogram: 08/02/22 Review of Systems Const All systems reviewed & are unremarkable except as noted in HPI and below Card Reports as per HPI Resp Reports as per HPI GI Reports as per HPI and Reports no additional complaints Reports as per HPI Physical Exam Vital Signs: BMI result Body Mass Index 26.0 Const General: cooperative, healthy appearing and comfortable Chest Chest palpation & inspection: normal inspection of the chest and normal palpation of entire chest wall Breast/axilla inspection: normal inspection of the breasts and normal inspection of the axillae Breast/axilla palpation: normal palpation of the breasts, normal palpation of the axillae and no axillary lymphadenopathy Resp Effort & Inspection: normal respiratory effort Auscultation: clear to auscultation bilaterally Percussion: percussion normal Cardio Palpation: normal PMI Rate: regular rate Rhythm: regular rhythm Heart sounds: no murmurs and no rubs Peripheral pulses: Peripheral pulses 2+ throughout GI Inspection: Yes normal to inspection Palpation (GI): Soft to palpation, nontender, no guarding, not rigid and No hepatosplenomegaly present Percussion: Yes normal to percussion Auscultation: normal bowel sounds Rectal Exam - Female: deferred General: Yes bladder normal to palpation External Female Exam: No lesion Speculum Exam - Vagina: normal appearance of the vagina, normal palpation, normal vaginal discharge and not erythematous Speculum Exam - Cervix: normal appearance of the cervix and normal palpation Bimanual exam- vagina & uterus: normal bimanual exam, normal palpation, uterine size normal, bladder normal to palpation, consistency normal and normal palpation Bimanual Exam- Adnexa, other: normal adnexae, no masses and no tenderness Assessment & Plan Assessment & Plan (1) Well woman exam: Code(s): Z01.419 - Encounter for gynecological examination (general) (routine) without abnormal findings Plan: Cotesting not indicated this year. Instruction given to patient to schedule her next screening Mammogram in 08/19. Counseled the patient about the recommended dietary allowance of 1000 mg of Calcium & 600 IU of vitamin D. The patient was instructed to perform monthly self-breast exams and to schedule an annual exam in a year; All questions answered and the patient verbalized understanding. Instructed the patient to schedule annual exam in a year (2) Abnormal uterine bleeding: Code(s): N93.9 - Abnormal uterine and vaginal bleeding, unspecified Plan: GC and chlamydia taken CBC, TSH, prolactin, HCG, and pelvic ultrasound ordered. Discussed with the patient the different causes of abnormal bleeding including thyroid disorders, uterine and ovarian pathology, endometrial hyperplasia, carcinoma and other potential causes. Discussed with the patient the work up including CBC (to r/o anemia), TSH, pelvic Ultrasound, endometrial biopsy to r/o endometrial pathology. All questions answered and the patient verbalized understanding. Instructed the patient to schedule an appointment for an endometrial biopsy in 2 weeks. (3) Bacterial vaginosis: Code(s): N76.0 - Acute vaginitis; B96.89 - Other specified bacterial agents as the cause of diseases classified elsewhere Plan: GC and chlamydia cultures with BV panel taken. Per CDC recommendation, will screen for STI, HepBs Ag, HIV, RPR, Hep C Ab ordered. Will treat with Flagyl 500 mg p.o. b.i.d. x 7 days, Instructions given to the patient to refrain from sexual activity or to use condoms consistently and correctly during the BV treatment regimen, not to douch, it might increase the risk for relapse, and to call if symptoms persist or recur. Orders: Orders HCG Quantitative Today N93.9 - Abnormal uterine and vaginal bleeding, unspecified Prolactin Today N93.9 - Abnormal uterine and vaginal bleeding, unspecified TSH reflex Free T4 Today N93.9 - Abnormal uterine and vaginal bleeding, unspecified Complete Blood Count no Diff Today N93.9 - Abnormal uterine and vaginal bleeding, unspecified Hepatitis B Surface Antigen Today B96.89 - Other specified bacterial agents as the cause of diseases classified elsewhere, N76.0 - Acute vaginitis Hepatitis C Antibody Today B96.89 - Other specified bacterial agents as the cause of diseases classified elsewhere, N76.0 - Acute vaginitis HIV Ab/Ag Today B96.89 - Other specified bacterial agents as the cause of diseases classified elsewhere, N76.0 - Acute vaginitis Syphilis Screen Today B96.89 - Other specified bacterial agents as the cause of diseases classified elsewhere, N76.0 - Acute vaginitis US pelvic and transvaginal Today N93.9 - Abnormal uterine and vaginal bleeding, unspecified Medications: New metronidazole 500 mg PO BID 14 tabs 0RF 7 days Coding Level of Care Code Est Pt Level 3 (37705) Est Pt Prev Care 40-64y(42426) Diagnoses Well woman exam Z01.419 Abnormal uterine bleeding N93.9 Bacterial vaginosis N76.0; B96.89
== END 2022-09-25 08:52 | disposition home or self-care (01) ==
LOC: HO.HWS 08:26
PROVIDERS: Visit Provider Obstetrics & Gynecology
DX: Z01.411 Encounter for gynecological examination (general) (routine) with abnormal findings (principal); N93.9 Abnormal uterine and vaginal bleeding, unspecified; N76.0 Acute vaginitis; B96.89 Other specified bacterial agents as the cause of diseases classified elsewhere
CPT/HCPCS: 99396

== ENCOUNTER 2022-09-25 08:26 | Outpatient (REF) | payer OTHER, SELFPAY ==
[2022-09-25 10:14] LABS: Hematocrit 39.7 % (37.0-47.0); Hemoglobin 12.5 g/dl (12.0-16.0); Mean Corpuscular HGB Conc 31.5 g/dl (31.0-35.0); Mean Corpuscular Hemoglobin 26.8 pg (27.0-33.0); Mean Platelet Volume 11.9 fL (9.4-12.3); Platelet Count 250 X10*3/uL (160-400); Red Blood Count 4.67 X10*6/uL (4.20-5.50); Red Cell Distribution Width 16.6 % (11.0-16.0); White Blood Count 7.2 X10*3/uL (4.8-10.8)
[2022-09-25 11:05] LABS: HCG Quantitative < 2 mIU/mL; TSH reflex Free T4 1.01 uIU/mL (0.32-4.0)
[2022-09-25 11:20] LABS: Syphilis Screen Nonreactive (Nonreactive)
[2022-09-26 04:36] LABS: HBsAGNum1 0.34 S/CO (0.00-0.99); HIV AB/AG Nonreactive (Nonreactive); HIV Num 1 0.05 S/CO (0.00-0.99); Hepatitis B Surface Antigen Negative (Negative); ~HepC Num1 0.09 S/CO (0.00-0.79); ~Hepatitis C Antibody Nonreactive (Nonreactive)
[2022-09-26 05:57] LABS: CT PCR NOT DETECTED (Not Detect.); NG PCR NOT DETECTED (Not Detect.)
[2022-09-26 14:15] LABS: BV Int Neg Control Negative (Negative); BV Int Pos Control Positive (Positive)
[2022-09-26 19:53] LABS: Prolactin 7.4 ng/mL
== END 2022-09-25 08:27 | disposition home or self-care (01) ==
LOC: HO.LAB 08:26
PROVIDERS: PCP Internal Medicine; Visit Provider Obstetrics & Gynecology
DX: Z01.419 Encounter for gynecological examination (general) (routine) without abnormal findings (principal); Z11.4 Encounter for screening for human immunodeficiency virus [HIV]; B96.89 Other specified bacterial agents as the cause of diseases classified elsewhere; N93.9 Abnormal uterine and vaginal bleeding, unspecified; N76.0 Acute vaginitis
CPT/HCPCS: 0353U; 36415; 84146; 84443; 84702; 85027; 86780; 86803; 87340; 87389; 87480; 87510; 87660

== ENCOUNTER 2022-09-25 10:01 | Outpatient (REF) | payer OTHER, SELFPAY | END 2022-09-25 10:02 | disposition home or self-care (01) | LOC: HO.LNP 10:01 | PROVIDERS: Visit Provider Obstetrics & Gynecology | DX: Z13.89 Encounter for screening for other disorder (principal) ==

== ENCOUNTER 2022-10-04 12:56 | Outpatient (REF) | payer OTHER, SELFPAY ==
--- NOTE | ~2022-10-04 | US_ITS ---
EXAMINATION: US PELVIS COMPLETE CLINICAL INFORMATION: Abnormal uterine bleeding COMPARISON: None TECHNIQUE: Transabdominal and transvaginal imaging was performed. FINDINGS: The uterus is of normal size and heterogeneous in echotexture measuring 9.4 x 5.4 x 6.4 cm. A regular homogeneous endometrium is identified measuring 1.0 cm. Nabothian cysts in the cervix. Few myometrial calcifications possibly vascular in etiology. Both ovaries are of normal size and echogenicity. The right measures 2.7 x 1.7 x 1.5 cm for a volume of 3.5 mL. The left measures 2.0 x 1.4 x 2.4 cm. There is no pelvic free fluid. US/US pelvic and transvaginal IMPRESSION: 1. Heterogeneous uterine echotexture which can be seen in the setting of adenomyosis which could be confirmed with an MR pelvis if warranted.
== END 2022-10-04 12:57 | disposition home or self-care (01) ==
LOC: HO.US 12:56
PROVIDERS: PCP Internal Medicine; Visit Provider Obstetrics & Gynecology
DX: N80.03 Adenomyosis of the uterus (principal); N93.9 Abnormal uterine and vaginal bleeding, unspecified
CPT/HCPCS: 76830; 76856

== ENCOUNTER 2022-10-06 10:18 | Emergency (ER) | payer OTHER, SELFPAY ==
[2022-10-06 10:37] VITALS: BP 112/53; PULSE 82; RESP 16; TEMP 36.7; O2SAT 95; BMI 27.3
[2022-10-06 11:07] LABS: Hemoglobin 11.8 g/dl (12.0-16.0); Mean Corpuscular HGB Conc 31.9 g/dl (31.0-35.0); Mean Corpuscular Hemoglobin 27.1 pg (27.0-33.0); Mean Corpuscular Volume 84.9 fL (80.0-98.0); Mean Platelet Volume 11.8 fL (9.4-12.3); Platelet Count 235 X10*3/uL (160-400); Red Blood Count 4.36 X10*6/uL (4.20-5.50); Red Cell Distribution Width 17.2 % (11.0-16.0); White Blood Count 7.3 X10*3/uL (4.8-10.8)
[2022-10-06 11:08] LABS: Appearance Urine Turbid; Color Urine Red; Glucose Urine UA Negative (Negative); Leukocyte Esterase Urine Moderate (2+) (Negative); Nitrite Urine Negative (Negative); PH 5.5 (5.0-9.0); Specific Gravity - Urine 1.025 (1.005-1.025); UMIC TRIGGER UACC YES; Urine Blood Large (3+) (Negative); Urine Ketones Negative (Negative); Urine Protein 30 (1+) mg/dL (Neg-Trace)
[2022-10-06 11:10] LABS: Bacteria Urine None Seen (None Seen); Hyaline Casts Urine 0-2 /LPF (0-2); RBC Urine >20 /HPF (0-2); Squamous Epithelial Cell Urine 0-2 /HPF (0-2); UACC Culture Trigger YES; WBC Urine 21-50 /HPF (0-5)
[2022-10-06 11:30] LABS: Alanine Aminotransferase 13 U/L (0-31); Albumin Level 3.8 g/dL (3.5-5.0); Alkaline Phosphatase 55 U/L (39-117); Anion Gap 11 (12-20); Aspartate Amino Transferase 15 U/L (5-31); Bilirubin Total 0.3 mg/dL (0.0-1.0); Blood Urea Nitrogen 11 mg/dL (9-16); Calcium 8.8 mg/dL (8.4-10.2); Carbon Dioxide 25 mmol/L (22-29); Chloride 109 mmol/L (96-108); Creatinine Clr Calc Pharmacy 94.6; Estimated Glomerular Filt Rate > 60; Glucose Random 98 mg/dL (60-115); Potassium 3.9 mmol/L (3.3-5.1); Sodium 141 mmol/L (135-145); Total Protein 6.8 g/dL (6.5-8.0)
[2022-10-06 12:37] LABS: HCG Quantitative < 2 mIU/mL
== END 2022-10-06 16:04 | disposition left against medical advice (07) ==
PROVIDERS: Physician Assistant; Emergency Provider Emergency Medicine; PCP Internal Medicine
DX: N93.9 Abnormal uterine and vaginal bleeding, unspecified (principal); R42 Dizziness and giddiness; M54.50 Low back pain, unspecified
CPT/HCPCS: 36415; 80053; 81001; 84702; 85027; 87086; 87147; 99282; 99283

== ENCOUNTER 2022-11-16 13:03 | Outpatient (REF) | payer OTHER, SELFPAY | END 2022-11-16 13:04 | disposition home or self-care (01) | LOC: HO.LNP 13:03 | PROVIDERS: PCP Internal Medicine; Visit Provider Obstetrics & Gynecology | DX: N93.9 Abnormal uterine and vaginal bleeding, unspecified (principal) | CPT/HCPCS: 58100; 81025; 88305 ==

== ENCOUNTER 2022-11-16 13:03 | Outpatient (AMB) | payer OTHER, SELFPAY ==
[2022-11-16 13:09] VITALS: BMI 27.1
--- NOTE | 2022-11-16 13:09 | MHC.OFFVIS ---
Intake Vital Signs 11/16/22 13:09 Height 5 ft 5 in Weight 163 lb 2.273 oz BMI 27.1 Intake Visit Reasons: EMB/Ultrasound follow up Data Typist Required: No Information Interpreted: non-clinical & clinical Accompanied by: Self / Same As Patient Allergies No Known Allergies Allergy (Unverified 11/16/22 13:17) Is last menstrual period known: Yes Last menstrual period: 11/15/22 PFSH Medical History Asthma Surgical History H/O tubal ligation Family History Mother Diabetes HTN (hypertension) Asthma Social History Household Members: Children [facility]: [facility] Alcohol intake: current Alcohol intake frequency: a few times a week Patient Tobacco Use Status: Current everyday Tobacco user Tobacco use type: Cigarette Cigarettes Per Day: 2 Years Smoked: 10 Current occupational status: employed 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 hysteroscopy D&C) & the risks were discussed with the patient including but not limited: pain, uterine perforation, bleeding, infection, possible injury to bladder, bowel, ureter, possible need for blood transfusion with all its possible risks. The patient verbalized understanding all questions answered and signed consent. Urine test done in the office was negative The patient was placed into the dorsal lithotomy position; a speculum was inserted in the vagina. Using aseptic technique for the procedure, the cervix was cleansed with Betadine. The anterior lip of the cervix was grasped with a single tooth tenaculum. The uterus was sounded to 7 cm with a 4 mm Pipelle was used. Tissues samples were obtained and placed in formalin, in a patient labeled container and sent to the pathology department. At the end of the procedure, there was minimal bleeding noted The patient tolerated the procedure well and was discharged in good condition with the following instructions: Nothing in the vagina until the bleeding stops. No sex until the bleeding stops, to call if any of the following occurs: fever (>100.4), flu-like symptoms, abdominal pain, heavy bleeding, four smelling vaginal discharge. The patient was instructed to schedule a Follow up appointment in 2 weeks to discuss pathology results of the biopsy and treatment options. This note was generated with a voice recognition program. Some errors may have been overlooked during the review of this note. Sometimes these errors may affect the content or meaning of a given sentence. [id number]-[id number] Biopsy Assessment & Plan Assessment & Plan Orders: Orders AMB Endometrial Biopsy Today N93.9 - Abnormal uterine and vaginal bleeding, unspecified Coding Level of Care Code Procedure Only CPT Codes Endometrial Biopsy - CPT: 90902-[id number] Biopsy ([id number])
== END 2022-11-16 13:32 | disposition home or self-care (01) ==
PROVIDERS: PCP Internal Medicine; Visit Provider Obstetrics & Gynecology
DX: N93.9 Abnormal uterine and vaginal bleeding, unspecified (principal); Z32.02 Encounter for pregnancy test, result negative
CPT/HCPCS: 58100

== ENCOUNTER 2023-01-31 12:11 | Outpatient (AMB) | payer OTHER, SELFPAY ==
--- NOTE | 2023-01-31 12:33 | MHC.OFFVIS ---
Intake Vital Signs 01/31/23 12:36 Height 5 ft 5 in Weight 163 lb 2.273 oz BMI 27.1 BP 110/68 Intake Visit Reasons: EMB Follow up/DO NOT RS Typewriters Functional Tester Required: No Information Interpreted: non-clinical & clinical Accompanied by: Self / Same As Patient Allergies No Known Allergies Allergy (Unverified 01/31/23 12:36) Is last menstrual period known: Yes Last menstrual period: 01/28/23 HPI HPI Comments History of Present Illness Details The patient is presenting for follow-up to discuss the results of her abnormal uterine bleeding workup and options of treatment. The following workup was done.: H&H= 11.8/37 TSH, prolactin, hCG, GC and chlamydia were negative. Endometrial biopsy pathology showed the following: Lytic endometrium; no atypia or hyperplasia identified Co testing was done in 09/16 was negative. Mammogram in 08/18 was BI-RADS 1. Pelvic ultrasound showed the following: The uterus is of normal size and heterogeneous in echotexture measuring 9.4 x 5.4 x 6.4 cm. A regular homogeneous endometrium is identified measuring 1.0 cm. Nabothian cysts in the cervix. Few myometrial calcifications possibly vascular in etiology. Both ovaries are of normal size and echogenicity. The right measures 2.7 x 1.7 x 1.5 cm for a volume of 3.5 mL. The left measures 2.0 x 1.4 x 2.4 cm. 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 Sexual orientation: Straight/Heterosexual Gender identity: Female Female Reproductive History Menstrual Age of Menarche: 11 Date of last menstrual period: 01/28/23 Review of Systems Const All systems reviewed & are unremarkable except as noted in HPI and below Reports as per HPI and Reports no additional complaints GI Reports no additional complaints Reports no additional complaints Physical Exam Vital Signs: Last Vital Signs BP 110/68 01/31/23 12:36 BMI result Body Mass Index 27.1 Assessment & Plan Assessment & Plan (1) Abnormal uterine bleeding: Code(s): N93.9 - Abnormal uterine and vaginal bleeding, unspecified Plan: Discussed with the patient the results of the work up done and options of treatment including Lysteda, BCP's, Mirena IUD, endometrial ablation and hysterectomy. All pros, cons, risks and benefits if each option was discussed with the patient and the patient decided to think about it and get back to us. All questions answered the patient verbalized understanding. Coding Level of Care Code Est Pt Level 3 (80431) Diagnoses Abnormal uterine bleeding N93.9
[2023-01-31 12:36] VITALS: BP 110/68; BMI 27.1
== END 2023-01-31 12:46 | disposition home or self-care (01) ==
LOC: HO.HWS 12:12
PROVIDERS: PCP Internal Medicine; Visit Provider Obstetrics & Gynecology
DX: N93.9 Abnormal uterine and vaginal bleeding, unspecified (principal)
CPT/HCPCS: 99213

== ENCOUNTER → 2023-01-31 12:11 | Outpatient (BNVA) | payer OTHER, SELFPAY | PROVIDERS: PCP Internal Medicine; Visit Provider Obstetrics & Gynecology | DX: N93.9 Abnormal uterine and vaginal bleeding, unspecified (principal) | CPT/HCPCS: 99212 ==

== ENCOUNTER 2023-02-08 11:23 | Outpatient (REF) | payer OTHER, SELFPAY ==
[2023-02-08 14:10] LABS: Syphilis Screen Nonreactive (Nonreactive)
[2023-02-09 04:06] LABS: CT PCR NOT DETECTED (Not Detect.); NG PCR NOT DETECTED (Not Detect.)
[2023-02-09 07:39] LABS: HIV AB/AG Nonreactive (Nonreactive); HIV Num 1 0.12 S/CO (0.00-0.99); ~HepC Num1 0.17 S/CO (0.00-0.79); ~Hepatitis C Antibody Nonreactive (Nonreactive)
[2023-02-09 13:45] LABS: BV Int Neg Control Negative (Negative); BV Int Pos Control Positive (Positive)
== END 2023-02-08 11:24 | disposition home or self-care (01) ==
LOC: HO.LAB 11:23
PROVIDERS: PCP Internal Medicine; Visit Provider Obstetrics & Gynecology
DX: Z11.4 Encounter for screening for human immunodeficiency virus [HIV] (principal); N76.0 Acute vaginitis; B96.89 Other specified bacterial agents as the cause of diseases classified elsewhere
CPT/HCPCS: 0353U; 86780; 86803; 87389; 87480; 87510; 87660; 99212

== ENCOUNTER 2023-02-08 11:23 | Outpatient (AMB) | payer OTHER, SELFPAY ==
[2023-02-08 11:41] VITALS: BMI 25.0
--- NOTE | 2023-02-08 11:41 | A.OFFVIS_ITS ---
Intake Vital Signs 02/08/23 11:41 Height 5 ft 5 in Weight 150 lb BMI 25.0 Intake Visit Reasons: vaginal itch Allergies No Known Allergies Allergy (Unverified 01/31/23 12:36) HPI HPI Comments History of Present Illness Details The patient is presenting complaining of vaginal discharge associated with foul odor, no other associated symptoms, vaginal itching or any other complaint PFSH Medical History Asthma Surgical History H/O tubal ligation Family History Mother Diabetes HTN (hypertension) Asthma Social History Household Members: Children Housing: Condominium Alcohol intake: current Alcohol intake frequency: a few times a week Patient Tobacco Use Status: Current everyday Tobacco user Tobacco use type: Cigarette Cigarettes Per Day: 2 Years Smoked: 10 Current occupational status: employed 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 Sexual orientation: Straight/Heterosexual Gender identity: Female Female Reproductive History Menstrual Age of Menarche: 11 Date of last menstrual period: 01/28/23 Review of Systems Const All systems reviewed & are unremarkable except as noted in HPI and below Physical Exam Vital Signs: BMI result Body Mass Index 25.0 General: Yes no CVA tenderness External Female Exam: normal external appearance and normal appearance of the urethra Speculum Exam - Vagina: normal appearance of the vagina, normal palpation, no lesions and no masses Speculum Exam - Cervix: normal appearance of the cervix, normal palpation, no lesions, no masses and nontender Bimanual exam- vagina & uterus: normal bimanual exam, normal palpation, uterine size normal, normal palpation, uterine shape normal, No Cervical tenderness present and non-tender Bimanual Exam- Adnexa, other: normal adnexae Back/Spine/Pelvis Back: no CVA tenderness Assessment & Plan Assessment & Plan (1) Bacterial vaginosis: Code(s): N76.0 - Acute vaginitis; B96.89 - Other specified bacterial agents as the cause of diseases classified elsewhere Plan: GC and chlamydia cultures with BV panel taken. Per CDC recommendation, will screen for STI, HepBs Ag, HIV, RPR, Hep C Ab ordered. Will treat with Flagyl 500 mg p.o. b.i.d. x 7 days, Instructions given to the patient to refrain from sexual activity or to use condoms consistently and correctly during the BV treatment regimen, not to douch, it might increase the risk for relapse, and to call if symptoms persist or recur. Orders: Orders Hepatitis C Antibody Today B96.89 - Other specified bacterial agents as the cause of diseases classified elsewhere, N76.0 - Acute vaginitis Syphilis Screen Today B96.89 - Other specified bacterial agents as the cause of diseases classified elsewhere, N76.0 - Acute vaginitis HIV Ab/Ag Today B96.89 - Other specified bacterial agents as the cause of diseases classified elsewhere, N76.0 - Acute vaginitis Medications: New metronidazole 500 mg PO BID 14 tabs 0RF 7 days Coding Level of Care Code Est Pt Level 3 (93996) Diagnoses Bacterial vaginosis N76.0; B96.89
== END 2023-02-08 13:09 | disposition home or self-care (01) ==
PROVIDERS: PCP Internal Medicine; Visit Provider Obstetrics & Gynecology
DX: N76.0 Acute vaginitis (principal); B96.89 Other specified bacterial agents as the cause of diseases classified elsewhere
CPT/HCPCS: 99213

== ENCOUNTER 2023-02-23 01:31 | Emergency (ER) | payer OTHER, SELFPAY ==
[2023-02-23 01:46] VITALS: BP 122/54; PULSE 86; RESP 18; TEMP 36.6; O2SAT 97; BMI 25.9
--- NOTE | 2023-02-23 03:02 | PC.NURSE ---
pt from home. a&ox4, respirations even and unlabored. pt reports development of an abscess on the lower left back one week ago. pt reports the pain worsened the last day. pt reports bloody clear drainage in the shower. upon palpitation, pt has hard lump on the back that is warm and tender to touch.
[2023-02-23 03:44] VITALS: BP 115/79; PULSE 82; RESP 18; TEMP 36.6; O2SAT 100
--- NOTE | 2023-02-23 03:46 | MHC.EDTECH ---
Hourly rounds and vitals completed,patient is tearful stated she is in pain,Deann RN was made aware call cody within reach
--- NOTE | 2023-02-23 04:30 | PC.NURSE ---
pt tearful at bedside, reporting 10/10 lower back pain due to abscess. provider aware.
--- NOTE | 2023-02-23 04:57 | ED.SKABFB ---
HPI - Skin/Abscess/Foreign Bdy General Chief complaint: Skin/Abscess/Foreign Body Stated complaint: cyst on back Time Seen by Provider: 02/23/23 04:44 Source: patient Mode of arrival: ambulatory Limitations: no limitations History of Present Illness HPI narrative: Patient comes to the emergency room complaining of redness and pain in the middle back posteriorly. Patient states it has been going on for 2 weeks. However, now she is seeing a little bit of drainage from a pimple size aperture in the skin Related Data Home Medications Medication Instructions Recorded Confirmed albuterol sulfate 90 mcg/actuation 2 puff inhalation Q6H PRN 09/20/21 aerosol inhaler Previous Rx's Medication Instructions Recorded metronidazole 500 mg tablet 500 mg PO BID 7 days #14 tabs 02/08/23 cephalexin 500 mg capsule 500 mg PO BID #14 caps 02/23/23 doxycycline hyclate 100 mg tablet 100 mg PO BID #20 tabs 02/23/23 ketorolac 10 mg tablet 10 mg PO TID PRN pain #10 tabs 02/23/23 Allergies Allergy/AdvReac Type Severity Reaction Status Date / Time No Known Allergies Allergy Unverified 01/31/23 12:36 Review of Systems Review of Systems: Constitutional : No Weight loss, No Fever, No Chills, No Night Sweats, No Fatigue, No Malaise ENT/Mouth : No Hearing loss, No Ear Pain, No Nasal Congestion, No Sinus Pain, No Hoarseness, No sore throat, No Rhinorrhea, No Swallowing Difficulty Eyes: No Eye Pain, No Swelling, No Redness, No Foreign Body, No Discharge, No Vision Changes Cardiovascular : No Chest Pain, No SOB, No Dyspnea on Exertion, No Orthopnea, No Edema, No Palpitations Respiratory : No Cough, No Sputum, No Wheezing, No Smoke Exposure, No Dyspnea Gastrointestinal : No Nausea, No Vomiting, No Diarrhea, No Constipation, No abdominal Pain, No Hematochezia, No Melena Genitourinary : no irregular bleeding, No Dysuria, No Urinary Frequency, No Hematuria, No Urinary Incontinence, No Urgency, No Flank Pain, No Urinary Flow Changes, No Hesitancy Musculoskeletal : No joint pain, No Myalgias, No Joint Swelling Skin : Redness versus abscess in the back Neuro : No Weakness, No Numbness, No Paresthesias, No Loss of Consciousness, No Dizziness, No Headache Psych : No Anxiety/Panic, No Depression, No SI/HI/AH/VH, No Social Issues, Heme/Lymph: No Bruising, No Bleeding,No Lymphadenopathy Endocrine : No Polyuria, No Polydipsia, No Temperature Intolerance [facility], [facility] Past Medical History Medical History Asthma Surgical History H/O tubal ligation Family History Family History Mother Diabetes HTN (hypertension) Asthma Social History Social History Household Members: Children Housing: Condominium Alcohol intake: current Alcohol intake frequency: a few times a week Patient Tobacco Use Status: Current everyday Tobacco user Tobacco use type: Cigarette Cigarettes Per Day: 2 Years Smoked: 10 Smoked in Last 30 Days: No Use of substances other than those prescribed or required for medical reasons: No Advance Directives: No Advance Directives Information Provided: Yes Patient : No Current occupational status: employed 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 Oriented X3. No acute distress. Eyes: Pupils equal, round and reactive to light. ENT: Pharynx normal. Neck: Normal inspection. Neck supple. No lymph nodes noted. No crepitus CVS: Normal heart rate and rhythm. Pulses normal. Normal S1 and S2 Respiratory: No respiratory distress. Breath sounds normal. No Wheezing. No rales Abdomen: Soft and nontender. No rigidity. No distention. Skin: There is a patch of erythema and induration in the middle back. Ultrasound at bedside does not show any abscess underneath. Only cobble stone tissue pattern Extremities: No lower extremity edema. No Lacerations. No Rash Neuro: Oriented X 3. No motor deficit. No sensory deficit. Moving all extremities. No slurred speech. CN 2 through 12 grossly intact Psych: calm, cooperative, normal affect Critical Care Time Critical Care Time Critical Care Time: No Discharge Plan Discharge Clinical Impression: Cellulitis Patient Disposition: Home, Self-Care Instructions: Cellulitis (ED) Additional Instructions: Please follow-up with your primary care physician tomorrow. If you have any worsening or new symptoms, please return to the emergency room or call 911 Prescriptions: New cephalexin 500 mg capsule 500 mg PO BID Qty: 14 0RF doxycycline hyclate 100 mg tablet 100 mg PO BID Qty: 20 0RF ketorolac 10 mg tablet 10 mg PO TID PRN (Reason: pain) Qty: 10 0RF Rx Instructions: Do not use this medication with Aleve, naproxen, or any NSAIDs, only Tylenol No Action albuterol sulfate 90 mcg/actuation HFA aerosol inhaler 2 puff inhalation Q6H PRN metronidazole 500 mg tablet 500 mg PO BID 7 Days Qty: 14 0RF
[2023-02-23] MEDS: Doxycycline Monohydrate 100 MG CAPSULE PO (05:13)
[2023-02-23] MEDS: Ketorolac Tromethamine 60 MG/2 ML VIAL IM (05:13)
--- NOTE | 2023-02-23 05:16 | PC.NURSE ---
pt medicated per mar prior to discharge.
== END 2023-02-23 05:18 | disposition home or self-care (01) ==
PROVIDERS: Emergency Provider Emergency Medicine
DX: L03.312 Cellulitis of back [any part except buttock and flank] (principal); M54.89 Other dorsalgia
CPT/HCPCS: 96372; 99284; J1885

== ENCOUNTER 2023-03-09 13:35 | Outpatient (AMB) | payer OTHER, SELFPAY ==
[2023-03-09 13:36] VITALS: BP 102/70; PULSE 82; O2SAT 98; BMI 25.3
--- NOTE | 2023-03-09 13:36 | MHC.PC.OV ---
Vital Signs 03/09/23 13:36 Height 5 ft 5 in Weight 152 lb BMI 25.3 BP 102/70 Blood Pressure Location Lt brachial Position Sitting Pulse 82 Pulse Source Pulse Oximeter Pulse Oximetry (%) 98 Oxygen Delivery Method Room Air Intake Visit Reasons: NPV/requesting phy Distribution System Operator Required: No Book Reviewer: Not Required per policy Accompanied by: Self / Same As Patient Allergies No Known Allergies Allergy (Verified 03/09/23 13:36) Medication List - Last Reconciled 03/09/23 by Francie Espinosa MD albuterol sulfate 90 mcg/actuation 2 puffs inhalation Q6H PRN Tobacco use date assessed: 03/09/23 Dental Screening Dental Screen Date: 03/09/23 Did you have a dental visit in the last 12 months?: Yes Did you have a dental problem in the last 6 months where you did not have access to dental care?: No Was dental information given to patient?: Patient has dentist HPI NPV/requesting phy HPI Details 42-year-old female being seen for the 1st time. 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 1. Little interest or pleasure in doing things: not at all 2. Feeling down, depressed, or hopeless: not at all 3. Trouble falling or staying asleep, or sleeping too much: not at all 4. Feeling tired or having little energy: not at all 5. Poor appetite or overeating: not at all 6. Feeling bad about yourself - or that you are a failure or have let yourself or your family down: not at all 7. Trouble concentrating on things, such as reading the newspaper or watching television: not at all 8. Moving or speaking so slowly that other people could have noticed. Or the opposite - being so fidgety or restless that you have been moving around a lot more than usual: not at all 9. Thoughts that you would be better off or of hurting yourself in some way: not at all Total score: 0 Source: Developed by Drs. Uday Ariza, Wendy Ross, Mango Cuba and colleagues, with an educational rose marie from [employer]. Thrive Questionnaire Date Thrive assessed: 03/09/23 I am a: Patient What is your living situation today?: I have a steady place to live Within the past 12 months, did the food you bought not last and you didn't have the money to get more?: Never true Within the past 12 months, did you worry whether your food would run out before you got money to buy more?: Never true Do you have trouble paying for medicines?: No Do you have trouble getting transportation to medical appointments?: No Do you have trouble paying your heating and electricity bill?: No Do you have trouble taking care of your child, family member or friend?: No Do you have trouble with day-to-day activities such as bathing, preparing meals, shopping, managing finances, etc.?: No Are you currently unemployed and looking for a job?: No Are you interested in more education?: No Please select the resources that you would like help with: None AUDIT C Alcohol Use Questionnaire (AUDIT-C) 1. How often do you have a drink containing alcohol?: Never Total Score: 0 JULIA-7 AMB Questionnaire JULIA-7 Date JULIA - 7 assessed: 03/09/23 Feeling nervous, anxious, or on edge: 0 = Not at all Not being able to stop or control worryin = Not at all Worrying too much about different things: 0 = Not at all Trouble relaxin = Not at all Being so restless that it is hard to sit still: 0 = Not at all Becoming easily annoyed or irritable: 0 = Not at all Feeling afraid as if something awful might happen: 0 = Not at all Total JULIA-7 score (0-4 normal; 5-9 mild; 10-14 moderate; 15-21 severe): 0 Source: Developed by Drs. Uday Ariza, Wendy Ross, Mango Cuba and colleagues, with an educational rose marie from [employer]. Review of Systems Const Denies poor appetite and Denies weakness Eyes Denies no additional complaints ENT Reports Normal hearing present, Denies dizziness, Denies nasal congestion, Denies tinnitus and Denies sore throat Card Denies chest pain, Denies syncope, Denies rapid heart rate and Denies dyspnea Resp Denies cough and Denies dyspnea GI Denies change in stool character, Reports constipation, Denies diarrhea, Denies nausea and Denies vomiting Denies urinary frequency, Denies difficulty voiding and Denies dysuria Neuro Reports Normal hearing present, Denies confusion, Denies dizziness, Denies syncope and Denies weakness Psych Denies confusion Physical exam (Primary Care) Vital Signs: Last Vital Signs Pulse 82 03/09/23 13:36 BP 102/70 03/09/23 13:36 Pulse Ox 98 03/09/23 13:36 Oxygen Delivery Method Room Air 03/09/23 13:36 BMI result Body Mass Index 25.3 Tobacco/Smoking Status: Tobacco use Status Tobacco use date assessed 03/09/23 03/09/23 13:37 Patient Tobacco Use Status Former Tobacco user 03/09/23 14:39 Tobacco use type Cigarette 03/09/23 14:39 PHQ-9: PHQ-9 Score PHQ-9: Total score 0 03/09/23 15:01 Thrive Assessment: Date of Thrive Assessment Date Thrive assessed 03/09/23 03/09/23 13:37 Const General: alert; No acute distress or confusion Orientation/consciousness: No confusion HENMT Head: Yes normocephalic Ears: external ears normal and TM's normal bilaterally Face and sinus: Yes normal facial exam Mouth: moist mucous membranes Throat: Yes tonsils normal Eyes Conjunctivae: conjunctivae normal Pupils: Equal, round and reactive pupils present and Pupil accommodation reflex normal Direct Ophthalmoscopy: normal light reflex Neck Neck: No lymphadenopathy Thyroid: Thyroid normal Chest Chest palpation & inspection: normal inspection of the chest Resp Effort & Inspection: normal respiratory effort and no audible wheezes Auscultation: clear to auscultation bilaterally Cardio Rate: regular rate Rhythm: regular rhythm Peripheral pulses: radial pulses present and dorsalis pedis present GI Inspection: Yes normal to inspection Palpation (GI): no masses Auscultation: normal bowel sounds and normoactive bowel sounds Rectal Exam - Female: deferred Skin General skin exam: no rashes or lesions noted Rashes: no rashes Neuro General: deep tendon reflexes 2+ bilaterally and No confusion Cranial nerves: Yes Equal, round and reactive pupils present, Yes Midline tongue present, Yes Normal hearing present and Yes Ability to bilaterally elevate shoulders present Cognition (Neuro): normal cognition Gait exam (Neuro): Normal gait present Motor exam (neuro): 5/5 motor strength present throughout Deep tendon reflexes (DTR's): Right brachioradialis reflex intensity grade: 2+, Left brachioradialis reflex intensity grade: 2+, Right patellar reflex intensity grade: 2+ and Left patellar reflex intensity grade: 2+ Extrem General: Yes normal to inspection and No edema Office Meds tuberculin PPD 5 tub. unit/0.1 mL intradermal injection solution Performing Provider: Francie Espinosa MD [facility] Administered by: Rosaline Leger RN on 03/09/23 15:01 Dose Route Admin Location Dispensed Lot Number Expiration Date NDC Card Filer 0.1 mL intradermal left forearm 0.1 mL [id number] 02/24/26 43097-140-14 [employer] Assessment and Plan Assessment & Plan (1) Asthma: Code(s): J45.909 - Unspecified asthma, uncomplicated Plan: continue with the inhaler (2) Abnormal uterine bleeding: Code(s): N93.9 - Abnormal uterine and vaginal bleeding, unspecified Plan: PAtient follow up with Gynecology (3) Psoriasis: Comment: Dr. Vyas Code(s): L40.9 - Psoriasis, unspecified (4) Annual physical exam: Code(s): Z00.00 - Encounter for general adult medical examination without abnormal findings Orders: Orders AMB PPD Planted Today Z11.1 - Encounter for screening for respiratory tuberculosis Medications: New albuterol sulfate 90 mcg/actuation 2 puffs inhalation Q6H PRN 8.5 grams 0RF bronchospasm J45.909 - Unspecified asthma, uncomplicated Coding Level of Care Code New Pt Prev Care 40-64y(15538) Diagnoses Asthma J45.909 Abnormal uterine bleeding N93.9 Psoriasis L40.9 Annual physical exam Z00.00
== END 2023-03-09 15:03 | disposition home or self-care (01) ==
PROVIDERS: PCP Internal Medicine; Visit Provider Internal Medicine
DX: J45.909 Unspecified asthma, uncomplicated (principal); N93.9 Abnormal uterine and vaginal bleeding, unspecified; L40.9 Psoriasis, unspecified; Z00.00 Encounter for general adult medical examination without abnormal findings; Z11.1 Encounter for screening for respiratory tuberculosis
CPT/HCPCS: 86580; 99386

== ENCOUNTER 2023-05-11 14:01 | Outpatient (AMB) | payer OTHER, SELFPAY ==
--- NOTE | 2023-05-11 14:15 | MHC.OFFVIS ---
Intake Vital Signs 05/11/23 14:20 Height 5 ft 5 in Weight 154 lb BMI 25.6 BP 116/80 Intake Visit Reasons: pain with intercourse Shipping And Receiving Coordinator Required: No Information Interpreted: non-clinical & clinical Geotechnical Engineering Technician: Geotechnical Engineering Technician Present (Aidyn) Allergies No Known Allergies Allergy (Verified 05/11/23 14:20) Is last menstrual period known: Yes Last menstrual period: 04/04/23 Post menopausal: No Patient : No HPI HPI Comments History of Present Illness Details Presenting complaining of pelvic pain during intercourse associated bleeding and vaginal discharge with odor, no fever or chills no other symptoms. 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 Sexual orientation: Straight/Heterosexual Gender identity: Female Cognitive needs: No Hearing needs: No Vision needs: No Female Reproductive History Menstrual Age of Menarche: 11 Duration of menses: 6-7 days Date of last menstrual period: 04/04/23 control method: permanent sterilization Date of last pap smear: 09/22/21 (negative) Review of Systems Const All systems reviewed & are unremarkable except as noted in HPI and below Physical Exam Vital Signs: Last Vital Signs BP 116/80 05/11/23 14:20 BMI result Body Mass Index 25.6 General: Yes no CVA tenderness External Female Exam: normal external appearance and normal appearance of the urethra Speculum Exam - Vagina: normal appearance of the vagina, normal palpation, no lesions and no masses Speculum Exam - Cervix: normal appearance of the cervix, normal palpation, no lesions, no masses and nontender Bimanual exam- vagina & uterus: normal bimanual exam, normal palpation, uterine size normal, normal palpation, uterine shape normal, No Cervical tenderness present and non-tender Bimanual Exam- Adnexa, other: normal adnexae Back/Spine/Pelvis Back: no CVA tenderness Assessment & Plan Assessment & Plan (1) Dyspareunia, female: Code(s): N94.10 - Unspecified dyspareunia Plan: Urine dip and test in office were negative. GC/CT collected will order pelvic ultrasound. Instructions given the patient to schedule a pelvic ultrasound with a 2 week follow-up appointment (2) Postcoital bleeding: Code(s): N93.0 - Postcoital and contact bleeding Plan: Co testing not indicated, GC and chlamydia taken CBC, prolactin, TSH, HCG, and pelvic ultrasound ordered. Discussed with the patient the different causes of postcoital bleeding including thyroid disorders, cervical infections, uterine and ovarian pathology, endometrial hyperplasia, carcinoma and other potential causes. Discussed with the patient the work up including GC/CT, CBC (to r/o anemia), TSH, prolactin, pelvic Ultrasound, endometrial biopsy to r/o endometrial pathology. All questions answered and the patient verbalized understanding. Instructed the patient to schedule an appointment for an endometrial biopsy in 2 weeks. (3) Bacterial vaginosis: Code(s): N76.0 - Acute vaginitis; B96.89 - Other specified bacterial agents as the cause of diseases classified elsewhere Plan: GC and chlamydia cultures with BV panel taken. Per CDC recommendation, will screen for STI, HepBs Ag, HIV, RPR, Hep C Ab ordered. Will treat with Flagyl 500 mg p.o. b.i.d. x 7 days, Instructions given to the patient to refrain from sexual activity or to use condoms consistently and correctly during the BV treatment regimen, not to douch, it might increase the risk for relapse, and to call if symptoms persist or recur. Orders: Orders Complete Blood Count no Diff Today N93.9 - Abnormal uterine and vaginal bleeding, unspecified Prolactin Today N93.9 - Abnormal uterine and vaginal bleeding, unspecified HCG Quantitative Today N93.9 - Abnormal uterine and vaginal bleeding, unspecified Syphilis Screen Today B96.89 - Other specified bacterial agents as the cause of diseases classified elsewhere, N76.0 - Acute vaginitis HIV Ab/Ag Today B96.89 - Other specified bacterial agents as the cause of diseases classified elsewhere, N76.0 - Acute vaginitis Hepatitis B Surface Antigen Today B96.89 - Other specified bacterial agents as the cause of diseases classified elsewhere, N76.0 - Acute vaginitis Hepatitis C Antibody Today B96.89 - Other specified bacterial agents as the cause of diseases classified elsewhere, N76.0 - Acute vaginitis TSH reflex Free T4 Today N93.9 - Abnormal uterine and vaginal bleeding, unspecified US pelvic and transvaginal Today N93.9 - Abnormal uterine and vaginal bleeding, unspecified Medications: New metronidazole 500 mg PO BID 14 tabs 0RF 7 days Coding Level of Care Code Est Pt Level 3 (84903) Diagnoses Dyspareunia, female N94.10 Postcoital bleeding N93.0 Bacterial vaginosis N76.0; B96.89
[2023-05-11 14:20] VITALS: BP 116/80; BMI 25.6
== END 2023-05-11 14:31 | disposition home or self-care (01) ==
LOC: HO.HWS 14:01
PROVIDERS: Visit Provider Obstetrics & Gynecology
DX: N94.10 Unspecified dyspareunia (principal); N93.0 Postcoital and contact bleeding; N76.0 Acute vaginitis; B96.89 Other specified bacterial agents as the cause of diseases classified elsewhere; Z32.02 Encounter for pregnancy test, result negative
CPT/HCPCS: 99213

== ENCOUNTER 2023-05-11 14:01 | Outpatient (REF) | payer OTHER, SELFPAY | END 2023-05-11 14:02 | disposition home or self-care (01) | LOC: HO.LNP 14:01 | PROVIDERS: Visit Provider Obstetrics & Gynecology | DX: N94.10 Unspecified dyspareunia (principal); R10.2 Pelvic and perineal pain; N93.0 Postcoital and contact bleeding; N76.0 Acute vaginitis; B96.89 Other specified bacterial agents as the cause of diseases classified elsewhere | CPT/HCPCS: 81003; 81025; 99212 ==

== ENCOUNTER 2023-05-11 14:33 | Outpatient (REF) | payer OTHER, SELFPAY ==
[2023-05-11 15:06] LABS: Hematocrit 40.7 % (37.0-47.0); Hemoglobin 13.2 g/dl (12.0-16.0); Mean Corpuscular HGB Conc 32.4 g/dl (31.0-35.0); Mean Corpuscular Volume 86.2 fL (80.0-98.0); Mean Platelet Volume 11.8 fL (9.4-12.3); Platelet Count 258 X10*3/uL (160-400); Red Blood Count 4.72 X10*6/uL (4.20-5.50); Red Cell Distribution Width 16.3 % (11.0-16.0); White Blood Count 6.5 X10*3/uL (4.8-10.8)
[2023-05-11 15:59] LABS: HCG Quantitative < 2 mIU/mL; TSH reflex Free T4 0.64 uIU/mL (0.32-4.0)
[2023-05-12 04:01] LABS: Syphilis Screen Nonreactive (Nonreactive)
[2023-05-12 04:12] LABS: HBsAGNum1 0.39 S/CO (0.00-0.99); HIV AB/AG Nonreactive (Nonreactive); HIV Num 1 0.06 S/CO (0.00-0.99); Hepatitis B Surface Antigen Negative (Negative); ~HepC Num1 0.18 S/CO (0.00-0.79); ~Hepatitis C Antibody Nonreactive (Nonreactive)
[2023-05-12 06:36] LABS: CT PCR NOT DETECTED (Not Detect.); NG PCR NOT DETECTED (Not Detect.)
[2023-05-12 08:18] LABS: Prolactin 13.5 ng/mL
[2023-05-12 15:15] LABS: BV Int Neg Control Negative (Negative); BV Int Pos Control Positive (Positive)
== END 2023-05-11 14:34 | disposition home or self-care (01) ==
LOC: HO.LAB 14:33
PROVIDERS: Visit Provider Obstetrics & Gynecology
DX: N93.9 Abnormal uterine and vaginal bleeding, unspecified (principal); N93.0 Postcoital and contact bleeding; N76.0 Acute vaginitis; B96.89 Other specified bacterial agents as the cause of diseases classified elsewhere
CPT/HCPCS: 0353U; 84146; 84443; 84702; 85027; 86780; 86803; 87340; 87389; 87480; 87510; 87660

== ENCOUNTER 2023-05-15 12:48 | Outpatient (REF) | payer OTHER, SELFPAY ==
--- NOTE | ~2023-05-15 | US_ITS ---
EXAM: Pelvic Ultrasound CLINICAL INDICATION: Abnormal bleeding COMPARISON: Pelvic ultrasound 10/04/2022 TECHNIQUE: The pelvis was evaluated using transabdominal and transvaginal imaging. FINDINGS: The uterus measures 10.8 x 4.0 x 5.7 cm in longitudinal by AP by transverse dimension. There is overall heterogeneous uterine echotexture. A well-defined uterine mass is not identified. The endometrial stripe is not thickened and measures 0.7 cm. Nabothian cysts are present within the cervix. The left ovary measures approximately 3.2 x 1.5 x 1.9 cm and contains a simple appearing approximately 2 cm cyst. The right ovary measures approximately 1.9 x 1.4 x 1.6 cm and is normal. Prominent vasculature noted within the left adnexa. There are no abnormal adnexal masses. There is no free fluid in the pelvis. US/US pelvic and transvaginal IMPRESSION: 1. Normal thickness endometrial stripe. 2. Heterogeneous uterine echotexture. A well-defined uterine mass is not identified. Findings may represent adenomyosis. Further evaluation can be obtained with pelvic MRI as clinically indicated. 3. 2 cm simple appearing left ovarian cyst. 4. Prominent vasculature noted within the left adnexa. This is a nonspecific finding but may represent pelvic congestion syndrome.
== END 2023-05-15 12:49 | disposition home or self-care (01) ==
LOC: HO.US 12:48
PROVIDERS: Visit Provider Obstetrics & Gynecology
DX: N93.9 Abnormal uterine and vaginal bleeding, unspecified (principal)
CPT/HCPCS: 76830; 76856

== ENCOUNTER 2023-07-03 12:24 | Outpatient (AMB) | payer OTHER, SELFPAY ==
[2023-07-03 12:27] VITALS: BP 120/80; BMI 25.6
--- NOTE | 2023-07-03 12:27 | MHC.OFFVIS ---
Vital Signs 07/03/23 12:27 Height 5 ft 5 in Weight 154 lb BMI 25.6 BP 120/80 Intake Visit Reasons: Ultra sound follow up/EMB/DO NOT RS Reliability Engineer Required: No Information Interpreted: non-clinical & clinical Psychologist Developmental: Psychologist Developmental Present ([place]) Allergies No Known Allergies Allergy (Verified 07/03/23 12:36) Is last menstrual period known: Yes Last menstrual period: 06/02/23 Post menopausal: No HPI Comments Details: Presenting for EMB PFSH Medical History Asthma Surgical History H/O tubal ligation Family History Mother Diabetes HTN (hypertension) Asthma Social History Household Members: Children [facility] Alcohol intake: current Alcohol intake frequency: a few times a week Comment: 5 drinks once a week Patient Tobacco Use Status: Former Tobacco user Tobacco use type: Cigarette Cigarettes Per Day: 2 Years Smoked: 10- quit 2009 Current occupational status: employed 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 Sexual orientation: Straight/Heterosexual Gender identity: Female Cognitive needs: No Hearing needs: No Vision needs: No Female Reproductive History Menstrual Age of Menarche: 11 Date of last menstrual period: 06/02/23 control method: permanent sterilization Physical Exam Vital Signs: Last Vital Signs BP 120/80 07/03/23 12:27 BMI result Body Mass Index 25.6 Office Procedures Endometrial Biopsy Details: The patient was counseled regarding the indication and benefits of endometrial sampling to rule out endometrial pathology including not limited to endometrial hyperplasia or endometrial cancer and others; The alternatives (Either do nothing vs. hysteroscopy D&C) & the risks were discussed with the patient including but not limited: pain, uterine perforation, bleeding, infection, possible injury to bladder, bowel, ureter, possible need for blood transfusion with all its possible risks. The patient verbalized understanding all questions answered and signed consent. Urine test done in the office was negative The patient was placed into the dorsal lithotomy position; a speculum was inserted in the vagina. Using aseptic technique for the procedure, the cervix was cleansed with Betadine. The anterior lip of the cervix was grasped with a single tooth tenaculum. The uterus was sounded to 7 cm with a 4 mm Pipelle was used. Tissues samples were obtained and placed in formalin, in a patient labeled container and sent to the pathology department. At the end of the procedure, there was minimal bleeding noted The patient tolerated the procedure well and was discharged in good condition with the following instructions: Nothing in the vagina until the bleeding stops. No sex until the bleeding stops, to call if any of the following occurs: fever (>100.4), flu-like symptoms, abdominal pain, heavy bleeding, four smelling vaginal discharge. The patient was instructed to schedule a Follow up appointment in 2 weeks to discuss pathology results of the biopsy and treatment options. This note was generated with a voice recognition program. Some errors may have been overlooked during the review of this note. Sometimes these errors may affect the content or meaning of a given sentence. [id number] Biopsy Results AMB Test Urine AMB Test Urine Negative Last Edit by BRY Ramirez on 07/03/23 12:37 Assessment & Plan Assessment & Plan (1) Postcoital bleeding: Code(s): N93.0 - Postcoital and contact bleeding Category: Medical Plan: EMB done, see procedure note Orders: Orders AMB HCG Urine Test Today Z32.02 - Encounter for test, result negative AMB Endometrial Biopsy Today N93.0 - Postcoital and contact bleeding Coding Level of Care Code Procedure Only Diagnoses Postcoital bleeding N93.0 CPT Codes Endometrial Biopsy - CPT: 79810-[id number] Biopsy ([id number])
== END 2023-07-03 13:43 | disposition home or self-care (01) ==
LOC: HO.HWS 12:24
PROVIDERS: Visit Provider Obstetrics & Gynecology
DX: N93.0 Postcoital and contact bleeding (principal); Z32.02 Encounter for pregnancy test, result negative
CPT/HCPCS: 58100

== ENCOUNTER 2023-07-03 12:24 | Outpatient (REF) | payer OTHER, SELFPAY | END 2023-07-03 12:25 | disposition home or self-care (01) | LOC: HO.LNP 12:24 | PROVIDERS: Visit Provider Obstetrics & Gynecology | DX: N93.0 Postcoital and contact bleeding (principal) | CPT/HCPCS: 58100; 81025; 88305 ==

== ENCOUNTER 2023-07-17 09:08 | Outpatient (REF) | payer OTHER, SELFPAY ==
[2023-07-18 09:18] LABS: Bacterial Vaginosis PCR POSITIVE (Negative); Candida Group PCR NOT DETECTED (Not Detect); Candida glab krusei PCR NOT DETECTED (Not Detect); Trichomonas vaginalis PCR NOT DETECTED (Not Detect)
[2023-07-18 09:26] LABS: CT PCR NOT DETECTED (Not Detect.); NG PCR NOT DETECTED (Not Detect.)
== END 2023-07-17 09:09 | disposition home or self-care (01) ==
LOC: HO.LNP 09:08
PROVIDERS: PCP Internal Medicine; Visit Provider Obstetrics & Gynecology
DX: N76.0 Acute vaginitis (principal)
CPT/HCPCS: 0352U; 0353U; 99212

== ENCOUNTER 2023-07-17 09:08 | Outpatient (AMB) | payer OTHER, SELFPAY ==
--- NOTE | 2023-07-17 09:22 | MHC.OFFVIS ---
Vital Signs 07/17/23 09:32 Height 5 ft 5 in Weight 154 lb BMI 25.6 BP 120/82 Intake Visit Reasons: vaginal odor Allergies No Known Allergies Allergy (Verified 07/17/23 09:37) Is last menstrual period known: Yes Last menstrual period: 06/12/23 HPI Comments Details: Presenting complaining of vaginal odor over the last few days that has resolved today PFSH Medical History Asthma Surgical History H/O tubal ligation Family History Mother Diabetes HTN (hypertension) Asthma Social History Household Members: Children Housing: [facility] Alcohol intake: current Alcohol intake frequency: a few times a week Comment: 5 drinks once a week Patient Tobacco Use Status: Former Tobacco user Tobacco use type: Cigarette Cigarettes Per Day: 2 Years Smoked: 10- quit 2009 Current occupational status: employed 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 Sexual orientation: Straight/Heterosexual Gender identity: Female Cognitive needs: No Hearing needs: No Vision needs: No Female Reproductive History Menstrual Age of Menarche: 11 Date of last menstrual period: 06/12/23 Review of Systems Const All systems reviewed & are unremarkable except as noted in HPI and below Physical Exam General: Yes no CVA tenderness External Female Exam: normal external appearance and normal appearance of the urethra Speculum Exam - Vagina: normal appearance of the vagina, normal palpation, no lesions and no masses Speculum Exam - Cervix: normal appearance of the cervix, normal palpation, no lesions, no masses and nontender Bimanual exam- vagina & uterus: normal bimanual exam, normal palpation, uterine size normal, normal palpation, uterine shape normal, No Cervical tenderness present and non-tender Bimanual Exam- Adnexa, other: normal adnexae Back/Spine/Pelvis Back: no CVA tenderness Assessment & Plan Assessment & Plan (1) Vaginitis: Code(s): N76.0 - Acute vaginitis Category: Medical Plan: GC/CT with BV panel taken, since the patient is asymptomatic will check the results and treat accordingly Coding Level of Care Code Est Pt Level 3 (65373) Diagnoses Vaginitis N76.0
[2023-07-17 09:32] VITALS: BP 120/82; BMI 25.6
== END 2023-07-17 09:32 | disposition home or self-care (01) ==
PROVIDERS: PCP Internal Medicine; Visit Provider Obstetrics & Gynecology
DX: N76.0 Acute vaginitis (principal)
CPT/HCPCS: 99213

== ENCOUNTER 2023-08-10 09:04 | Outpatient (REF) | payer OTHER, SELFPAY ==
--- NOTE | ~2023-08-10 | MM_ITS ---
EXAMINATION: MM SCREENING DIGITAL BREAST TOMOSYNTHESIS, BILATERAL CLINICAL INFORMATION: Screening. Asymptomatic. COMPARISON: Mammography: This study is compared with prior exams dating back to 2013. TECHNIQUE: Digital breast tomosynthesis is performed in both the craniocaudal and mediolateral oblique views along with computer-aided detection (CAD). Synthesized 2D images are generated from the tomosynthesis. FINDINGS: The breasts are heterogeneously dense, which may obscure small masses (ACR BI-RADS breast composition Category c). There are no significant masses, abnormal calcifications, or other abnormalities. MM/MM tomosynthesis screening BI IMPRESSION: No mammographic evidence of malignancy. ASSESSMENT: BI-RADS BI-RADS 1 - Negative RECOMMENDATION: Routine annual mammography screening. 1 year F/U This examination should not preclude the clinical evaluation of a suspicious palpable abnormality. This patient's information was entered into a reminder system with a target due date for their next mammogram.
== END 2023-08-10 09:05 | disposition home or self-care (01) ==
LOC: HO.MAMMO 09:04
PROVIDERS: PCP Internal Medicine; Visit Provider Obstetrics & Gynecology
DX: Z12.31 Encounter for screening mammogram for malignant neoplasm of breast (principal)
CPT/HCPCS: 77063; 77067

== ENCOUNTER → 2023-08-10 09:30 | Outpatient (BNV) | payer OTHER, SELFPAY | PROVIDERS: PCP Internal Medicine; Visit Provider Radiology Diagnostic Radiology | DX: Z12.31 Encounter for screening mammogram for malignant neoplasm of breast (principal) | CPT/HCPCS: 77063; 77067 ==

== ENCOUNTER 2023-09-17 12:27 | Outpatient (AMB) | payer OTHER, SELFPAY ==
--- NOTE | 2023-09-17 12:45 | A.OFFVIS_ITS ---
Vital Signs 09/17/23 12:47 Height 5 ft 5 in Weight 152 lb 1.903 oz BMI 25.3 Intake Visit Reasons: EMB follow up Blood Typer Required: No Information Interpreted: non-clinical & clinical Allergies No Known Allergies Allergy (Verified 07/17/23 09:37) HPI Comments Details: The patient is presenting for follow-up to discuss the results of her workup and options of treatment. The following workup was done.: H&H= 13.2/40.7 TSH, prolactin, hCG, GC and chlamydia were negative. Endometrial biopsy pathology showed proliferative endometrium with no evidence of hyperplasia and/or malignancy. Co testing was done in 09/16 was negative Mammogram was BI-RADS 1 in 08/19 Pelvic ultrasound showed the following: IMPRESSION: 1. Normal thickness endometrial stripe. 2. Heterogeneous uterine echotexture. A well-defined uterine mass is not identified. Findings may represent adenomyosis. Further evaluation can be obtained with pelvic MRI as clinically indicated. 3. 2 cm simple appearing left ovarian cyst. 4. Prominent vasculature noted within the left adnexa. This is a nonspecific finding but may represent pelvic congestion syndrome. 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 Sexual orientation: Straight/Heterosexual Gender identity: Female Cognitive needs: No Hearing needs: No Vision needs: No Female Reproductive History Menstrual Age of Menarche: 11 Review of Systems Const All systems reviewed & are unremarkable except as noted in HPI and below Reports as per HPI and Reports no additional complaints GI Reports no additional complaints Reports no additional complaints Physical Exam Vital Signs: BMI result Body Mass Index 25.3 Assessment & Plan Assessment & Plan (1) Abnormal uterine bleeding: Code(s): N93.9 - Abnormal uterine and vaginal bleeding, unspecified Category: Medical Plan: Discussed with the patient the results of the work up done and options of treatment including Lysteda, control pills, Mirena IUD, endometrial ablation and hysterectomy. All pros, cons, risks and benefits if each option was discussed with the patient and the patient decided to go ahead with Mirena IUD so a more detailed discussion about it was conducted including mechanism of action, risks (uterine perforation, infection, injury to bladder, bowel, displacement, and others) benefits (hypo menorrhea, amenorrhea, ...). GC/CT were taken and the patient was instructed to schedule Mirena IUD insertion on day 1-5 of next cycle . All questions answered, the patient verbalized understanding Coding Level of Care Code Est Pt Level 3 (52009) Diagnoses Abnormal uterine bleeding N93.9
[2023-09-17 12:47] VITALS: BMI 25.3
== END 2023-09-17 12:55 | disposition home or self-care (01) ==
LOC: HO.HWS 12:27
PROVIDERS: PCP Internal Medicine; Visit Provider Obstetrics & Gynecology
DX: N93.9 Abnormal uterine and vaginal bleeding, unspecified (principal)
CPT/HCPCS: 99213

== ENCOUNTER → 2023-09-17 12:27 | Outpatient (BNVA) | payer OTHER, SELFPAY | PROVIDERS: PCP Internal Medicine; Visit Provider Obstetrics & Gynecology | DX: N93.9 Abnormal uterine and vaginal bleeding, unspecified (principal) | CPT/HCPCS: 99212 ==

== ENCOUNTER 2023-09-19 10:29 | Outpatient (AMB) | payer OTHER, SELFPAY ==
[2023-09-19 10:32] VITALS: BP 116/70; PULSE 84; O2SAT 98; BMI 27.6
--- NOTE | 2023-09-19 10:32 | MHC.PC.OV ---
Vital Signs 09/19/23 10:32 Height 5 ft 5 in Weight 166 lb 0.6 oz BMI 27.6 BP 116/70 Blood Pressure Location Lt brachial Position Sitting Pulse 84 Pulse Source Pulse Oximeter Pulse Oximetry (%) 98 Oxygen Delivery Method Room Air Intake Visit Reasons: Varicose veins concerns Certified Nurse Practitioner Required: No Allergies No Known Allergies Allergy (Verified 09/19/23 10:35) Medication List - Last Reconciled 09/19/23 by Estelita Jones PA-C albuterol sulfate 90 mcg/actuation (Ventolin HFA) 2 puffs inhalation Q6H PRN metronidazole 500 mg PO BID 7 days Tobacco use date assessed: 03/09/23 Dental Screening Dental Screen Date: 03/09/23 HPI Varicose veins concerns HPI Details 42-year-old female with past medical history of asthma and psoriasis last seen by Dr. Espinosa 02/2023 coming in for acute concern.? In review of the notes, patient completed mammogram 09/09/2023 BI-RADS 1 with 1 year follow up.? Patient was seen by Gynecology 06/2023 for acute problem and again 06/2023 for abnormal uterine bleeding patient underwent endometrial biopsy which was negative for atypia or hyperplasia.? Patient also completed a pelvic ultrasound which showed evidence of possible adenomyosis with simple left ovarian cyst. She comes in today for concerns of varicose veins mainly with the right lower extremity. They have been getting worse over the last year and she notices it primarily after work or while walking for long periods of time. She denies shortness of breath, calf swelling, skin changes in lower extremities, or pain in lower extremities. She has not tried anything for this problem. 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 Sexual orientation: Straight/Heterosexual Gender identity: Female Cognitive needs: No Hearing needs: No Vision needs: No Female Reproductive History Menstrual Age of Menarche: 11 Questionnaire Thrive Questionnaire Date Thrive assessed: 03/09/23 I am a: Patient What is your living situation today?: I have a steady place to live Within the past 12 months, did the food you bought not last and you didn't have the money to get more?: Never true Within the past 12 months, did you worry whether your food would run out before you got money to buy more?: Never true Do you have trouble paying for medicines?: No Do you have trouble getting transportation to medical appointments?: No Do you have trouble paying your heating and electricity bill?: No Do you have trouble taking care of your child, family member or friend?: No Do you have trouble with day-to-day activities such as bathing, preparing meals, shopping, managing finances, etc.?: No Are you currently unemployed and looking for a job?: No Are you interested in more education?: No Please select the resources that you would like help with: None THRIVE Score: 0 AUDIT C Alcohol Use Questionnaire (AUDIT-C) 1. How often do you have a drink containing alcohol?: Never Total Score: 0 JULIA-7 AMB Questionnaire JULIA-7 Date JULIA - 7 assessed: 03/09/23 Source: Developed by Drs. Uday Ariza, Wendy Ross, Mango Cuba and colleagues, with an educational rose mraie from [employer]. Review of Systems Const Denies body aches, Denies chills, Denies fever(s), Denies headache(s) and Denies poor appetite Eyes Reports no additional complaints ENT Denies dizziness and Denies headache(s) Card Denies chest pain, Denies edema, Denies lightheadedness and Denies dyspnea Resp Denies dyspnea Reports no additional complaints Musc Reports no additional complaints, Denies abnormal gait, Denies arthralgias and Denies numbness Skin/Breast Details: Has been having itchy red rash on right pinky, seeing Dermatology Neuro Denies abnormal gait, Denies dizziness, Denies headache(s) and Denies numbness Psych Reports no additional complaints Physical exam (Primary Care) Vital Signs: Oxygen Delivery Method Room Air 09/19/23 10:32 Tobacco/Smoking Status: Tobacco use Status Tobacco use date assessed 03/09/23 09/10/23 12:45 Patient Tobacco Use Status Former Tobacco user 09/10/23 12:45 Tobacco use type Cigarette 09/10/23 12:45 Thrive Assessment: Date of Thrive Assessment Date Thrive assessed 03/09/23 09/10/23 12:45 Const General: cooperative, healthy appearing, comfortable and no acute distress Orientation/consciousness: patient oriented x3 HENMT Head: Yes normocephalic Ears: hearing grossly normal bilaterally General nose exam: Normal external nose present Eyes General: appearance normal, both eyes and all related structures Conjunctivae: conjunctivae normal Neck Neck: Yes full ROM and Yes no lymphadenopathy Resp Effort & Inspection: normal respiratory effort Auscultation: clear to auscultation bilaterally, no crackles, no rales, no rhonchi and no wheezes Cardio Rate: regular rate Rhythm: regular rhythm Skin Other: Erythematous, raised rash on right pinky. No skin changes in lower extremities Neuro General: patient oriented x3 Gait exam (Neuro): Normal gait present Extrem Other: Right lower extremity has 1-2 mildly protruding veins without overlying skin changes. No edema in lower extremities and no calf swelling bilaterally. Pulses, strength, and sensation intact in bilateral lower extremities. General: Yes full ROM and No edema Psych Affect: normal affect Attitude: cooperative Insight: Good insight present (Psych) Judgement: Good judgement present (Psych) Assessment and Plan Assessment & Plan (1) Varicose vein of leg: Code(s): I83.90 - Asymptomatic varicose veins of unspecified lower extremity Qualifiers: Varicose vein complication: asymptomatic Laterality: right Qualified Code(s): I83.91 - Asymptomatic varicose veins of right lower extremity Plan: Patient denies any pain, swelling, skin changes with a protruding veins. Advised patient to elevate legs when possible, increase daily exercise and encouraged weight loss. Prescription for compression stockings was given to patient today. Advised patient to use compression stockings when she knows she will be on her feet for extended periods of time. If varicose veins worsen or she begins to have overlying skin changes, pain, numbness or tingling she may follow up for additional evaluation. Plan This note was constructed using voice recognition software. While every effort has been made to ensure accuracy and medical coding technician, still areas may have been included sometimes these areas may affect the content or meeting of the given symptoms. Total time spent caring for the patient today was 25 minutes. This includes time spent before the visit reviewing the chart, time spent during the visit, and time spent after the visit and documentation. Medications: New comp.stocking,knee,long,medium As directed 20-30 mmHg 12 ea 0RF Coding Level of Care Code Est Pt Level 3 (14102) Diagnoses Asymptomatic varicose veins of right lower extremity I83.91 Varicose vein complication: asymptomatic Laterality: right
== END 2023-09-19 10:50 | disposition home or self-care (01) ==
PROVIDERS: PCP Internal Medicine
DX: I83.91 Asymptomatic varicose veins of right lower extremity (principal)
CPT/HCPCS: 99213

== ENCOUNTER 2023-09-27 10:15 | Outpatient (REF) | payer OTHER, SELFPAY ==
[2023-09-27 15:20] LABS: Bacterial Vaginosis PCR POSITIVE (Negative); Candida Group PCR NOT DETECTED (Not Detect); Candida glab krusei PCR NOT DETECTED (Not Detect); Trichomonas vaginalis PCR NOT DETECTED (Not Detect)
[2023-09-27 15:44] LABS: CT PCR NOT DETECTED (Not Detect.); NG PCR NOT DETECTED (Not Detect.)
== END 2023-09-27 10:16 | disposition home or self-care (01) ==
LOC: HO.LNP 10:15
PROVIDERS: PCP Internal Medicine; Visit Provider Obstetrics & Gynecology
DX: N76.0 Acute vaginitis (principal); B96.89 Other specified bacterial agents as the cause of diseases classified elsewhere
CPT/HCPCS: 0352U; 87491; 87591; 99396

== ENCOUNTER 2023-09-27 10:15 | Outpatient (AMB) | payer OTHER, SELFPAY ==
[2023-09-27 10:28] VITALS: BP 114/66; BMI 27.5
--- NOTE | 2023-09-27 10:28 | MHC.OFFVIS ---
Vital Signs 09/27/23 10:28 Height 5 ft 5 in Weight 165 lb 5.547 oz BMI 27.5 BP 114/66 Intake Visit Reasons: CLIENT RELATION SPECIALIST annual exam Electrical Installer Required: Yes Electrical Installer Language: Career Development Manager Services: Electrical Installer Present (in person) Electrical Installer Name: Diana LONDONO Information Interpreted: non-clinical & clinical District Associate Judge: District Associate Judge Present (Diana LONDONO) Accompanied by: Self / Same As Patient Allergies No Known Allergies Allergy (Verified 09/27/23 10:41) HPI Comments Details: Presenting for annual exam. Complaining of vaginal discharge associated with foul odor, the patient has been having frequent and recurrent BV over the last 2 years Last Pap/HPV was negative in 09/16 Last Mammogram was BI-RADS 1 in 08/19 [facility] Medical History Asthma Surgical History H/O tubal ligation Family History Mother Diabetes HTN (hypertension) Asthma Social History Household Members: Children Housing: Condominium Alcohol intake: current Alcohol intake frequency: a few times a week Comment: 5 drinks once a week Patient Tobacco Use Status: Former Tobacco user Tobacco use type: Cigarette Cigarettes Per Day: 2 Years Smoked: 10- quit 2009 Current occupational status: employed 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 Sexual orientation: Straight/Heterosexual Gender identity: Female Cognitive needs: No Hearing needs: No Vision needs: No Female Reproductive History Menstrual Age of Menarche: 11 control method: permanent sterilization Date of last pap smear: 09/22/21 Date of Mammogram: 08/10/23 Review of Systems Const All systems reviewed & are unremarkable except as noted in HPI and below Card Reports as per HPI Resp Reports as per HPI GI Reports as per HPI and Reports no additional complaints Reports as per HPI Physical Exam Vital Signs: BMI result Body Mass Index 27.5 Const General: cooperative, healthy appearing and comfortable Chest Chest palpation & inspection: normal inspection of the chest and normal palpation of entire chest wall Breast/axilla inspection: normal inspection of the breasts and normal inspection of the axillae Breast/axilla palpation: normal palpation of the breasts, normal palpation of the axillae and no axillary lymphadenopathy Resp Effort & Inspection: normal respiratory effort Auscultation: clear to auscultation bilaterally Percussion: percussion normal Cardio Palpation: normal PMI Rate: regular rate Rhythm: regular rhythm Heart sounds: no murmurs and no rubs Peripheral pulses: Peripheral pulses 2+ throughout GI Inspection: Yes normal to inspection Palpation (GI): Soft to palpation, nontender, no guarding, not rigid and No hepatosplenomegaly present Percussion: Yes normal to percussion Auscultation: normal bowel sounds Rectal Exam - Female: deferred General: Yes bladder normal to palpation External Female Exam: No lesion Speculum Exam - Vagina: normal appearance of the vagina, normal palpation, normal vaginal discharge and not erythematous Speculum Exam - Cervix: normal appearance of the cervix and normal palpation Bimanual exam- vagina & uterus: normal bimanual exam, normal palpation, uterine size normal, bladder normal to palpation, consistency normal and normal palpation Bimanual Exam- Adnexa, other: normal adnexae, no masses and no tenderness Assessment & Plan Assessment & Plan (1) Well woman exam: Code(s): Z01.419 - Encounter for gynecological examination (general) (routine) without abnormal findings Category: Medical Plan: Cotesting not indicated this year. Instructions given the patient to schedule next screening Mammogram in 08/20. Counseled the patient about the recommended dietary allowance of 1000 mg of Calcium & 600 IU of vitamin D. The patient was instructed to perform monthly self-breast exams and to schedule an annual exam in a year; All questions answered and the patient verbalized understanding. Instructed the patient to schedule annual exam in a year (2) Bacterial vaginosis: Comment: Recurrent Code(s): N76.0 - Acute vaginitis; B96.89 - Other specified bacterial agents as the cause of diseases classified elsewhere Category: Medical Plan: Discussed with the patient that detection of certain BV-associated organisms has been associated with antimicrobial resistance and can be the cause of subsequent treatment failure. Limited data are available regarding optimal management strategies for women with persistent or recurrent BV. Will rule out causes of immunosuppression by checking FBS and HIV, after completion of the recommended treatment will use CDC guidelines to treat recurrent BV with metronidazole 500 mg twice daily for 7 days followed by intravaginal boric acid 600 mg daily for 21 days and then suppressive 0.75% metronidazole gel twice weekly for 4 months, if this fails the other suppressive regimen is monthly oral metronidazole 2g administered with fluconazole 150 mg has also been evaluated as suppressive therapy; this regimen reduced the incidence of BV and promoted colonization with normal vaginal adrián. Orders: Orders Hepatitis B Surface Antigen Today B96.89 - Other specified bacterial agents as the cause of diseases classified elsewhere, N76.0 - Acute vaginitis Hepatitis C Antibody Today .89 - Other specified bacterial agents as the cause of diseases classified elsewhere, N76.0 - Acute vaginitis Syphilis Screen Today . - Other specified bacterial agents as the cause of diseases classified elsewhere, N76.0 - Acute vaginitis HIV Ab/Ag Today . - Other specified bacterial agents as the cause of diseases classified elsewhere, N76.0 - Acute vaginitis Glucose Fasting Today . - Other specified bacterial agents as the cause of diseases classified elsewhere, N76.0 - Acute vaginitis Medications: New metronidazole 0.75%(37.5mg/5gram) 1 appful vaginal BEDTIME 5 days 37.5 grams 3RF metronidazole 500 mg PO BID 7 days 14 tabs 0RF metronidazole 0.75%(37.5mg/5gram) To be started in a month 1 appful vaginal BEDTIME 5 days 37.5 grams 3RF Coding Level of Care Code Est Pt Prev Care 40-64y(86517) Diagnoses Well woman exam Z01.419 Bacterial vaginosis N76.0; B96.89
== END 2023-09-27 10:53 | disposition home or self-care (01) ==
LOC: HO.HWS 10:15
PROVIDERS: PCP Internal Medicine; Visit Provider Obstetrics & Gynecology
DX: Z01.419 Encounter for gynecological examination (general) (routine) without abnormal findings (principal); N76.0 Acute vaginitis; B96.89 Other specified bacterial agents as the cause of diseases classified elsewhere
CPT/HCPCS: 99396

== ENCOUNTER 2023-09-28 07:07 | Outpatient (REF) | payer OTHER, SELFPAY ==
[2023-09-28 07:40] LABS: Glucose Fasting 94 mg/dL (60-99)
[2023-09-28 08:06] LABS: HBsAGNum1 0.29 S/CO (0.00-0.99); HIV AB/AG Nonreactive (Nonreactive); HIV Num 1 0.08 S/CO (0.00-0.99); Hepatitis B Surface Antigen Negative (Negative); Syphilis Screen Nonreactive (Nonreactive); ~HepC Num1 0.17 S/CO (0.00-0.79); ~Hepatitis C Antibody Nonreactive (Nonreactive)
== END 2023-09-28 07:08 | disposition home or self-care (01) ==
LOC: HO.LAB 07:07
PROVIDERS: PCP Internal Medicine; Visit Provider Obstetrics & Gynecology
DX: N76.0 Acute vaginitis (principal); B96.89 Other specified bacterial agents as the cause of diseases classified elsewhere
CPT/HCPCS: 36415; 82947; 86780; 86803; 87340; 87389

== ENCOUNTER 2024-03-11 13:35 | Outpatient (AMB) | payer OTHER, SELFPAY ==
--- NOTE | 2024-03-11 13:43 | A.OFFPC_ITS ---
Vital Signs 03/11/24 13:45 Height 5 ft 5 in Weight 172 lb 6 oz BMI 28.7 BP 120/70 Blood Pressure Location Lt brachial Position Sitting Pulse 84 Pulse Source Pulse Oximeter Temp 96.9 F Temp Source Skin Pulse Oximetry (%) 98 Oxygen Delivery Method Room Air Intake Visit Reasons: PE Intake Note: Patient is here today for a physical. Pt has forms that needs to be filled out for work. Complaint of left side pelvic pain radiates to the hip and down to the knee. Pt decline flu shot today. Steamfitter Required: No Video Control Operator: Not Required per policy Accompanied by: Self / Same As Patient Allergies No Known Allergies Allergy (Verified 03/11/24 13:45) Medication List - Last Reconciled 03/11/24 by Francie Espinosa MD albuterol sulfate 90 mcg/actuation (Ventolin HFA) 2 puffs inhalation Q6H PRN comp.stocking,knee,long,medium As directed 20-30 mmHg Tobacco use date assessed: 03/11/24 Dental Screening Dental Screen Date: 03/11/24 Did you have a dental visit in the last 12 months?: Yes Did you have a dental problem in the last 6 months where you did not have access to dental care?: No Was dental information given to patient?: Patient has dentist HPI PE HPI Details The patient is a 43-year-old female presenting with concerns related to asthma, referred heart problems, a cervical cyst, musculoskeletal back pain, obesity, and gastroesophageal reflux disease (GERD). The patient reports using an albuterol inhaler occasionally for asthma, approximately six times in the past year, indicating controlled symptoms. She mentions a history of a heart murmur and a congenital heart defect discovered incidentally when she was a child. She experiences occasional chest discomfort not linked with exertion and describes symptoms compatible with GERD, exacerbated when supine. The patient's weight has increased from 152 lbs. in August of the previous year to 172 lbs. at this visit, corresponding with reduced activity and musculoskeletal pain, especially when bending or squatting. The patient also reports a cervical cyst identified in April of the previous year, which causes discomfort extending from the neck to the knees, affecting quality of life. - Discussion on heartburn management and lifestyle modifications including dietary changes, positioning guidelines after meals, and weight management. - Education on recognizing and avoiding triggers for asthma exacerbations. - Encourage stress testing and cardiac u ltrasound to evaluate cardiac health given congenital heart history. - Advise on regular physical activity to address obesity and musculoskeletal pain. - Discuss potential impact and managemen t of alcohol consumption. - Current lifestyle includes limited alc ohol consumption, reported as two beers once a month. - Former smoker; currently abstinent wit h no recent use reported. - Engages in physical activities that in clude carrying children and household duties, though recent physical activity appears limited. - Reports a busy schedule impacting slee p, waking up early, and potential stress-related impacts. - No recreational drug use. - Family structure includes a mention of a sister with arthritis. - Cardiovascular: Reports occasional emmett st discomfort unrelated to exertion. - Gastrointestinal: Reports heartburn th ree to four times a week, especially when lying down at night. - Musculoskeletal: Reports generalized b ack pain with specific discomfort during maneuvers like bending or squatting. - Respiratory: Occasional shortness of b reath, more pronounced on exertion, such as climbing stairs .- TB Testing: Scheduled. - Blood work: Fasting blood tests schedu led. - Cardiac ultrasound and stress tests: R ecommended and pending. PENDING SALE TO [facility] Medical History Asthma Surgical History H/O tubal ligation Family History (Updated 03/11/24 @ 13:44 by BRY Milton) Mother Diabetes HTN (hypertension) Asthma Social History (Updated 03/11/24 @ 14:05 by Francie Espinosa MD) Household Members: Children Housing: Condominium Alcohol intake: current Alcohol intake frequency: a few times a week Comment: once a month 2 beers Patient Tobacco Use Status: Former Tobacco user Tobacco use type: Cigarette Cigarettes Per Day: 2 Years Smoked: 10- quit 2009 e-Cigarette/Vaping Use: Never Used Second Hand Smoke Exposure: Yes service: No Current occupational status: employed 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 1. Little interest or pleasure in doing things: not at all 2. Feeling down, depressed, or hopeless: not at all 3. Trouble falling or staying asleep, or sleeping too much: not at all 4. Feeling tired or having little energy: not at all 5. Poor appetite or overeating: not at all 6. Feeling bad about yourself - or that you are a failure or have let yourself or your family down: not at all 7. Trouble concentrating on things, such as reading the newspaper or watching television: not at all 8. Moving or speaking so slowly that other people could have noticed. Or the opposite - being so fidgety or restless that you have been moving around a lot more than usual: not at all 9. Thoughts that you would be better off or of hurting yourself in some way: not at all Total score: 0 Depression Screening Interpretation: Negative Depression Screening Done: Yes Source: Developed by Drs. Uday Ariza, Wendy Ross, Mango Cuba and colleagues, with an educational rose marie from [employer]. Thrive Questionnaire Date Thrive assessed: 03/11/24 I am a: Patient What is your living situation today?: I have a steady place to live Within the past 12 months, did the food you bought not last and you didn't have the money to get more?: Never true Within the past 12 months, did you worry whether your food would run out before you got money to buy more?: Never true Do you have trouble paying for medicines?: No Do you have trouble getting transportation to medical appointments?: No Do you have trouble paying your heating and electricity bill?: No Do you have trouble taking care of your child, family member or friend?: No Do you have trouble with day-to-day activities such as bathing, preparing meals, shopping, managing finances, etc.?: No Are you currently unemployed and looking for a job?: No Are you interested in more education?: No Please select the resources that you would like help with: None Currently or been in a relationship where the following occur: No concerns reported THRIVE Score: 0 AUDIT C Alcohol Use Questionnaire (AUDIT-C) 1. How often do you have a drink containing alcohol?: Never Total Score: 0 JULIA-7 AMB Questionnaire JULIA-7 Date JULIA - 7 assessed: 03/11/24 Feeling nervous, anxious, or on edge: 0 = Not at all Not being able to stop or control worryin = Not at all Worrying too much about different things: 0 = Not at all Trouble relaxin = Not at all Being so restless that it is hard to sit still: 0 = Not at all Becoming easily annoyed or irritable: 0 = Not at all Feeling afraid as if something awful might happen: 0 = Not at all Total JULIA-7 score (0-4 normal; 5-9 mild; 10-14 moderate; 15-21 severe): 0 Source: Developed by Drs. Uday Ariza, Wendy Ross, Mango Cuba and colleagues, with an educational rose marie from [employer]. Review of Systems Const Denies poor appetite and Denies weakness Eyes Denies no additional complaints ENT Reports Normal hearing present, Denies dizziness, Denies nasal congestion, Denies tinnitus and Denies sore throat Card Denies chest pain, Denies syncope, Denies rapid heart rate and Denies dyspnea Resp Denies cough and Denies dyspnea GI Denies change in stool character, Reports constipation, Denies diarrhea, Denies nausea and Denies vomiting Denies urinary frequency, Denies difficulty voiding and Denies dysuria Neuro Reports Normal hearing present, Denies confusion, Denies dizziness, Denies syncope and Denies weakness Psych Denies confusion Physical exam (Primary Care) Vital Signs: Last Vital Signs Temp 96.9 F 03/11/24 13:45 Pulse 84 03/11/24 13:45 BP 120/70 03/11/24 13:45 Pulse Ox 98 03/11/24 13:45 Oxygen Delivery Method Room Air 03/11/24 13:45 BMI result Body Mass Index 28.7 Tobacco/Smoking Status: Tobacco use Status Tobacco use date assessed 03/11/24 03/11/24 13:52 Patient Tobacco Use Status Former Tobacco user 03/11/24 13:52 Tobacco use type Cigarette 03/11/24 13:52 e-Cigarette/Vaping Use Never Used 03/11/24 13:52 PHQ-9: PHQ-9 Score PHQ-9: Total score 0 03/11/24 13:52 Depression Screening Interpretation: Negative Thrive Assessment: Date of Thrive Assessment Date Thrive assessed 03/11/24 03/11/24 13:52 Currently or been in a relationship where the following occur: No concerns reported Const General: No confusion Orientation/consciousness: No confusion HENMT Head: Yes normocephalic Ears: external ears normal and TM's normal bilaterally Face and sinus: Yes normal facial exam Mouth: moist mucous membranes Throat: Yes tonsils normal Eyes Conjunctivae: conjunctivae normal Pupils: Equal, round and reactive pupils present and Pupil accommodation reflex normal Direct Ophthalmoscopy: normal light reflex Neck Neck: No lymphadenopathy Thyroid: Thyroid normal Chest Chest palpation & inspection: normal inspection of the chest Resp Effort & Inspection: normal respiratory effort and no audible wheezes Auscultation: clear to auscultation bilaterally, no crackles, no wheezes and lung sounds not diminished Cardio Rate: regular rate Rhythm: regular rhythm Peripheral pulses: radial pulses present and dorsalis pedis present GI Palpation (GI): no masses Auscultation: normal bowel sounds and normoactive bowel sounds Rectal Exam - Female: deferred Skin General skin exam: no rashes or lesions noted Rashes: no rashes Neuro General: No confusion Cranial nerves: Yes Equal, round and reactive pupils present and Yes Normal hearing present Cognition (Neuro): normal cognition Gait exam (Neuro): Normal gait present Motor exam (neuro): 5/5 motor strength present throughout Deep tendon reflexes (DTR's): Right brachioradialis reflex intensity grade: 2+, Left brachioradialis reflex intensity grade: 2+, Right patellar reflex intensity grade: 2+ and Left patellar reflex intensity grade: 2+ Extrem General: No edema Coding Level of Care Code Est Pt Prev Care 40-64y(59775) Diagnoses Annual physical exam Z00.00 Asthma J45.909 Hearing difficulty H91.90 SOB (shortness of breath) on exertion R06.02 GERD (gastroesophageal reflux disease) K21.9 Finger pain, right M79.644 Left groin pain R10.32 Assessment & Plan Assessment & Plan (1) Annual physical exam: Code(s): Z00.00 - Encounter for general adult medical examination without abnormal findings Category: Medical (2) Asthma: Code(s): J45.909 - Unspecified asthma, uncomplicated Category: Medical (3) Hearing difficulty: Code(s): H91.90 - Unspecified hearing loss, unspecified ear Category: Medical (4) SOB (shortness of breath) on exertion: Code(s): R06.02 - Shortness of breath Category: Medical (5) GERD (gastroesophageal reflux disease): Code(s): K21.9 - Gastro-esophageal reflux disease without esophagitis Category: Medical (6) Finger pain, right: Code(s): M79.644 - Pain in right finger(s) Category: Medical (7) Left groin pain: Code(s): R10.32 - Left lower quadrant pain Category: Medical Plan - Conduct an ultrasound of the heart to evaluate heart murmur and congenital heart defect. - Perform a stress test as part of a cardiac evaluation. - Obtain x-rays of the swollen finger to assess pain and swelling. - Address GERD with lifestyle modifications, including dietary adjustments and behavioral changes regarding meal timing and positioning. - Recommend mild muscle relaxants or pain management for musculoskeletal discomfort. - Encourage increased physical activity to aid in weight management. - Provide instructions for fasting blood work and the purpose of TB testing. During the visit, I explained the importance of a comprehensive cardiac evaluation, including a stress test and an ultrasound, due to her congenital heart defect and reported heart murmur. We discussed lifestyle adjustments for GERD, emphasizing the importance of dietary modifications and timing of meals relative to physical activity. I highlighted the benefits of managing asthma through controlled use of an inhaler and avoiding known triggers. We talked about musculoskeletal pain management options and the role of physical exercise in improving her back discomfort and weight management. I offered education on recognizing signs of heart complications and when to seek immediate care. We also discussed the conceivable side effects of medications prescribed for GERD and pain management, and I emphasized the importance of adhering to prescribed routines and follow-up appointments. - Follow recommended lifestyle changes to manage GERD, including avoiding triggers, not lying down immediately after eating, and using extra pillows to elevate the head. - Use the albuterol inhaler as needed for asthma symptoms. - Schedule and complete the fasting blood work and TB test as advised. - Attend the recommended cardiac ultrasound and stress testing appointments. - Keep active through regular exercise while being mindful of physical comfort. - Report any changes in symptoms or new concerns promptly. - Adhere to medication guidelines if prescribed and observe any side effects. Orders: Orders Complete Blood Count Auto Diff Today K21.9 - Gastro-esophageal reflux disease without esophagitis Lipid Panel Today E78.00 - Pure hypercholesterolemia, unspecified, K21.9 - Gastro-esophageal reflux disease without esophagitis Thyroid Stimulating Hormone Today K21.9 - Gastro-esophageal reflux disease without esophagitis Vitamin B12 and Folate Today K21.9 - Gastro-esophageal reflux disease without esophagitis Vitamin D 25-OH Total Today K21.9 - Gastro-esophageal reflux disease without esophagitis XR finger RT min 2V Today M79.644 - Pain in right finger(s) CA stress test Today R06.02 - Shortness of breath CA echo transthoracic complete Today R06.02 - Shortness of breath Comprehensive Met. Panel Today K21.9 - Gastro-esophageal reflux disease without esophagitis Free T4 (Free Thyroxine) Today K21.9 - Gastro-esophageal reflux disease without esophagitis UA CC w/rflx Micro + Cult Today K21.9 - Gastro-esophageal reflux disease without esophagitis, R30.0 - Dysuria T Spot TB Today Z00.00 - Encounter for general adult medical examination without abnormal findings Referrals Speech and Hearing Referral H91.90 - Unspecified hearing loss, unspecified ear Medications: New omeprazole 20 mg PO DAILY 30 caps 0RF K21.9 - Gastro-esophageal reflux disease without esophagitis cyclobenzaprine 5 mg PO TID PRN 30 tabs 0RF muscle spasm R10.32 - Left lower quadrant pain
[2024-03-11 13:45] VITALS: BP 120/70; PULSE 84; TEMP 36.1; O2SAT 98; BMI 28.7
== END 2024-03-11 14:26 | disposition home or self-care (01) ==
PROVIDERS: PCP Internal Medicine; Visit Provider Internal Medicine
DX: Z00.00 Encounter for general adult medical examination without abnormal findings (principal); J45.909 Unspecified asthma, uncomplicated; H91.90 Unspecified hearing loss, unspecified ear; R06.02 Shortness of breath; K21.9 Gastro-esophageal reflux disease without esophagitis; M79.644 Pain in right finger(s); R10.32 Left lower quadrant pain

== ENCOUNTER → 2024-03-11 13:35 | Outpatient (BNVA) | payer OTHER, SELFPAY | PROVIDERS: PCP Internal Medicine; Visit Provider Internal Medicine | DX: Z00.00 Encounter for general adult medical examination without abnormal findings (principal); K21.9 Gastro-esophageal reflux disease without esophagitis; J45.909 Unspecified asthma, uncomplicated; H91.90 Unspecified hearing loss, unspecified ear; R06.02 Shortness of breath; M79.644 Pain in right finger(s); R10.32 Left lower quadrant pain; E78.00 Pure hypercholesterolemia, unspecified | CPT/HCPCS: 99396 ==

== ENCOUNTER 2024-03-12 08:08 | Outpatient (REF) | payer OTHER, SELFPAY ==
--- NOTE | ~2024-03-12 | XR_ITS ---
CLINICAL HISTORY: M79.644 - Pain in right finger(s) AP hand and two-view right index finger Comparison: None Findings: Bones intact. No dislocations. No significant loss of joint space or osteophytes. No erosions. No radiopaque foreign body. IMPRESSION: 1. No acute findings This document has been electronically signed by: Misty Wang MD on 03/13/2024 05:03:09
[2024-03-12 08:24] LABS: MANUAL DIFF FLAG NO
[2024-03-12 08:46] LABS: Basophils Percent Auto 0.8 % (0-2); Eosinophils Absolute Auto 0.2 X10*3/uL (0.0-0.4); Eosinophils Percent Auto 3.2 % (0-4); Hematocrit 42.6 % (37.0-47.0); Hemoglobin 13.7 g/dl (12.0-16.0); Imm Gran Abs Auto 0.01 X10*3/uL (0.00-0.03); Imm Gran Pct Auto 0.2 % (0.0-0.4); Lymphocytes Absolute Auto 1.9 X10*3/uL (1.2-4.9); Lymphocytes Percent Auto 34.9 % (20-40); Mean Corpuscular HGB Conc 32.2 g/dl (31.0-35.0); Mean Corpuscular Hemoglobin 29.5 pg (27.0-33.0); Mean Corpuscular Volume 91.6 fL (80.0-98.0); Mean Platelet Volume 11.2 fL (9.4-12.3); Monocytes Absolute Auto 0.4 X10*3/uL (0.1-1.2); Monocytes Percent Auto 7.1 % (2-11); Neutrophils Absolute Auto 2.9 x10*3/uL (2.0-8.3); Neutrophils Percent Auto 53.8 % (45-73); Platelet Count 259 X10*3/uL (160-400); Red Blood Count 4.65 X10*6/uL (4.20-5.50); Red Cell Distribution Width 13.1 % (11.0-16.0); White Blood Count 5.3 X10*3/uL (4.8-10.8)
[2024-03-12 09:02] LABS: Alanine Aminotransferase 19 U/L (0-31); Albumin Level 4.2 g/dL (3.5-5.0); Alkaline Phosphatase 60 U/L (39-117); Anion Gap 8 (12-20); Aspartate Amino Transferase 26 U/L (5-31); Bilirubin Total 0.3 mg/dL (0.0-1.0); Blood Urea Nitrogen 11 mg/dL (9-16); Calcium 8.9 mg/dL (8.4-10.2); Carbon Dioxide 28 mmol/L (22-29); Chloride 109 mmol/L (96-108); Cholesterol 220 mg/dL (<200); Estimated Glomerular Filt Rate > 60; Glucose Random 90 mg/dL (60-115); HDL Cholesterol 54 mg/dL (>40); LDL Cholesterol Calculated 147 mg/dL (<100); Potassium 4.1 mmol/L (3.3-5.1); Sodium 141 mmol/L (135-145); Total Protein 7.4 g/dL (6.5-8.0); Triglycerides 97 mg/dL (<150)
[2024-03-12 09:15] LABS: Appearance Urine Clear; Color Urine Yellow; Glucose Urine UA Negative (Negative); Leukocyte Esterase Urine Negative (Negative); Nitrite Urine Negative (Negative); Specific Gravity - Urine 1.025 (1.005-1.025); Urine Blood Negative (Negative); Urine Ketones Negative (Negative); Urine Protein Negative (Neg-Trace)
[2024-03-12 09:18] LABS: Free T4 (Free Thyroxine) 1.05 ng/dL (0.71-1.85); Thyroid Stimulating Hormone 0.68 uIU/mL (0.32-4.0); Vitamin D 25-OH Total 29.3 ng/mL (>30)
[2024-03-12 09:31] LABS: Folate 12.8 ng/mL (> or = 4.0); Vitamin B12 509 pg/mL (200-900)
[2024-03-15 15:49] LABS: TS Negative Control Passed; TS Panel A 1; TS Panel B 0; TS Positive Control Passed; TSpotTB Negative (Negative)
== END 2024-03-12 08:09 | disposition home or self-care (01) ==
LOC: HO.LAB 08:08
PROVIDERS: PCP Internal Medicine; Visit Provider Internal Medicine
DX: Z00.00 Encounter for general adult medical examination without abnormal findings (principal); E78.00 Pure hypercholesterolemia, unspecified; K21.9 Gastro-esophageal reflux disease without esophagitis; R30.0 Dysuria; M79.644 Pain in right finger(s); Z11.1 Encounter for screening for respiratory tuberculosis
CPT/HCPCS: 36415; 73140; 80053; 80061; 81003; 82306; 82607; 82746; 84439; 84443; 85025; 86481

== ENCOUNTER → 2024-03-12 08:28 | Outpatient (BNV) | payer OTHER, SELFPAY | PROVIDERS: PCP Internal Medicine; Visit Provider Radiology Diagnostic Radiology | DX: M79.644 Pain in right finger(s) (principal) | CPT/HCPCS: 73140 ==

== ENCOUNTER 2024-03-28 10:47 | Outpatient (REF) | payer OTHER, SELFPAY ==
[2024-03-31 10:24] LABS: TS Negative Control Passed; TS Panel A 0; TS Panel B 0; TS Positive Control Passed; TSpotTB Negative (Negative)
== END 2024-03-28 10:48 | disposition home or self-care (01) ==
LOC: HO.LAB 10:47
PROVIDERS: PCP Internal Medicine; Visit Provider Internal Medicine
DX: R06.02 Shortness of breath (principal)
CPT/HCPCS: 36415; 86481

== ENCOUNTER → 2024-04-01 08:56 | Outpatient (BNV) | payer OTHER, SELFPAY | PROVIDERS: PCP Internal Medicine | DX: R06.02 Shortness of breath (principal) | CPT/HCPCS: 93016; 93018; 93350 ==

== ENCOUNTER 2024-05-17 14:43 | Emergency (ER) | payer OTHER, SELFPAY ==
--- NOTE | ~2024-05-17 | US_ITS ---
CLINICAL HISTORY: LLE pain, swelling, +calf TTP Venous duplex ultrasound left lower extremity Comparison: None Findings: The visualized deep veins are fully compressible with normal Doppler color flow and spectral tracings. No popliteal cyst. IMPRESSION: 1. Negative for left lower extremity deep vein thrombosis. Note: The calf veins are not well-visualized. This document has been electronically signed by: Omer Muñiz MD on 05/17/2024 17:32:33
[2024-05-17 14:56] VITALS: BP 118/65; PULSE 86; RESP 20; TEMP 37; O2SAT 96; BMI 26.2
--- NOTE | 2024-05-17 14:59 | ED_ITS ---
HPI - Extremity Problem General Chief complaint: Extremity Injury, Lower Stated complaint: L hip pain Related Data Previous Rx's ?Medication ?Instructions ?Recorded albuterol sulfate 90 mcg/actuation 2 puff inhalation Q6H PRN 05/30/23 aerosol inhaler (Ventolin HFA) shortness of breath or wheezing #8.5 grams comp.stocking,knee,long,medium #12 ea 09/19/23 cyclobenzaprine 5 mg tablet 5 mg PO TID PRN muscle spasm #30 03/11/24 tabs omeprazole 20 mg capsule,delayed 20 mg PO DAILY #30 caps 03/11/24 release Allergies Allergy/AdvReac Type Severity Reaction Status Date / Time No Known Allergies Allergy Verified 05/17/24 15:00 [facility] Past Medical History Medical History Asthma Surgical History H/O tubal ligation Family History Family History (Updated 03/11/24 @ 13:44 by BRY Milton) Mother Diabetes HTN (hypertension) Asthma Social History Social History (Updated 03/11/24 @ 14:05 by Francie Espinosa MD) Household Members: Children Housing: Condominium Alcohol intake: current Alcohol intake frequency: a few times a week Comment: once a month 2 beers Patient Tobacco Use Status: Former Tobacco user Tobacco use type: Cigarette Cigarettes Per Day: 2 Years Smoked: 10- quit 2009 e-Cigarette/Vaping Use: Never Used Second Hand Smoke Exposure: Yes Advance Directives: No Advance Directives Information Provided: No service: No Current occupational status: employed 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 Barcome, MULTIPLE CUT OFF SAW OPERATOR: Additional HPI, ROS, PE not included below will be deferred to primary provider. patient is a 43-year-old female who presents emergency department for evaluation. She has been experiencing pain to the left proximal thigh since February of 2024, had tried muscle relaxants previously without much improvement. In the past few days she had a 2 hour air flight, reports that she developed an unprovoked bruise to the left lateral calf, had pain during the flight extending down the entirety of her leg, pain is now radiating up into her right lower back which she did not have previously. Intermittently has tingling and swelling to the left lower extremity over the past 3 months. denies hx VTE/ malignancy. on exam has L calf TTP, 2+ DP/PT pulse Reevaluation(s) Reevaluation #1: LWCT Discharge Plan Discharge Clinical Impression: Acute leg pain Patient Disposition: Left W/O Completing Treatment Prescriptions: No Action albuterol sulfate [Ventolin HFA] 90 mcg/actuation HFA aerosol inhaler 2 puff inhalation Q6H PRN (Reason: shortness of breath or wheezing) Qty: 8.5 0RF (DME) comp.stocking,knee,long,medium Misc See Rx Instructions .Route Qty: 12 0RF Rx Instructions: As directed 20-30 mmHg omeprazole 20 mg capsule,delayed release(DR/EC) 20 mg PO DAILY Qty: 30 0RF cyclobenzaprine 5 mg tablet 5 mg PO TID PRN (Reason: muscle spasm) Qty: 30 0RF Discharge Date/Time: 05/17/24 22:23
== END 2024-05-17 22:23 | disposition left against medical advice (07) ==
LOC: HO.ED 22:13
PROVIDERS: Emergency Provider Emergency Medicine; PCP Internal Medicine
DX: M79.605 Pain in left leg (principal); J45.909 Unspecified asthma, uncomplicated; Z87.891 Personal history of nicotine dependence
CPT/HCPCS: 93971; 99281; 99284

== ENCOUNTER → 2024-05-17 16:09 | Outpatient (BNV) | payer OTHER, SELFPAY | PROVIDERS: PCP Internal Medicine; Visit Provider Radiology Vascular & Interventional Radiology | DX: M79.605 Pain in left leg (principal) | CPT/HCPCS: 93971 ==

== ENCOUNTER 2024-05-27 13:22 | Outpatient (AMB) | payer OTHER, SELFPAY ==
[2024-05-27 13:36] VITALS: BP 120/82; PULSE 76; RESP 20; TEMP 36.7; O2SAT 99; BMI 26.6
--- NOTE | 2024-05-27 13:36 | MHC.PC.OV ---
Vital Signs 05/27/24 13:36 Height 5 ft 5 in Weight 159 lb 9.6 oz BMI 26.6 BP 120/82 Blood Pressure Location Lt brachial Position Sitting Respiration 20 Pulse 76 Pulse Source Pulse Oximeter Temp 98.1 F Temp Source Oral Pulse Oximetry (%) 99 Oxygen Delivery Method Room Air Int[place] [facility] [place]/stomach pain Intake Note: Patient is here to follow-up after a visit the emergency department at [facility] in [place], [place] on 05/17/2024. Biologics Specialist Required: No Accompanied by: Self / Same As Patient Allergies No Known Allergies Allergy (Verified 05/27/24 14:09) Medication List - Last Reconciled 05/27/24 by ALINE Arroyo albuterol sulfate 90 mcg/actuation (Ventolin HFA) 2 puffs inhalation Q6H PRN cyclobenzaprine 5 mg PO TID PRN tacrolimus 0.1% 1 appl topical BID triamcinolone acetonide 0.1% 1 appl topical BID-TID Tobacco use date assessed: 05/27/24 Dental Screening Dental Screen Date: 05/27/24 Did you have a dental visit in the last 12 months?: Yes Did you have a dental problem in the last 6 months where you did not have access to dental care?: No Was dental information given to patient?: Patient has dentist [place] [facility] [place] leg/stomach pain HPI Details The patient is a 43-year-old female presenting for post hospital follow up visit Patient went into the hospital complaining of pain in her left proximal thigh that started since February 2024 She reports in the hospital that she tried a muscle relaxants without much improvement Today patient reports that the pain feels like heavy and numb if she cross her legs reports that there is a pain in left upper back, left lower back, and leg thigh area, laterally. Reports that she is having intermittently lumps on the left side only reports if she lays down on the left side, she feels pain Reports that she thought that she had vericose vein but she was told that her leg was normal reports that she has hx of psoriasis. The patient reports that her right and left elbow, bilateral knees, and right pointer finger PIP joint pain The patient complain of a mass at the right antecubital area denies sob, heart palpitation or dizziness, intermittent chest pain PFSH Medical History Asthma Surgical History H/O tubal ligation Family History Mother Diabetes HTN (hypertension) Asthma Social History Household Members: Children Housing: Condominium Alcohol intake: current Alcohol intake frequency: a few times a week Comment: once a month 2 beers Patient Tobacco Use Status: Former Tobacco user Tobacco use type: Cigarette Years Smoked: 10- quit 2009 e-Cigarette/Vaping Use: Never Used Second Hand Smoke Exposure: Yes service: No Current occupational status: employed 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 Sexual orientation: Straight/Heterosexual Gender identity: Female Cognitive needs: No Hearing needs: No Vision needs: Yes (Glasses) Female Reproductive History Menstrual Age of Menarche: 11 Questionnaire Thrive Questionnaire Date Thrive assessed: 05/27/24 I am a: Patient What is your living situation today?: I have a steady place to live Within the past 12 months, did the food you bought not last and you didn't have the money to get more?: Never true Within the past 12 months, did you worry whether your food would run out before you got money to buy more?: Never true Do you have trouble paying for medicines?: No Do you have trouble getting transportation to medical appointments?: No Do you have trouble paying your heating and electricity bill?: No Do you have trouble taking care of your child, family member or friend?: No Do you have trouble with day-to-day activities such as bathing, preparing meals, shopping, managing finances, etc.?: No Are you currently unemployed and looking for a job?: No Are you interested in more education?: No Please select the resources that you would like help with: None Currently or been in a relationship where the following occur: No concerns reported THRIVE Score: 0 AUDIT C Alcohol Use Questionnaire (AUDIT-C) 1. How often do you have a drink containing alcohol?: Never Total Score: 0 JULIA-7 AMB Questionnaire JULIA-7 Date JULIA - 7 assessed: 03/11/24 Source: Developed by Drs. Uday Ariza, Wendy Ross, Mango Cuba and colleagues, with an educational rose marie from [employer] Review of Systems Const Denies headache(s) Eyes Denies loss of vision ENT Denies vertigo, Denies dizziness, Denies headache(s) and Denies sore throat Card Denies chest pain, Denies leg edema and Denies lightheadedness Resp Denies cough, Denies hemoptysis and Denies wheezing GI Denies abdominal pain, Denies melena, Denies constipation, Denies diarrhea and Denies vomiting Denies urinary frequency, Denies dysuria and Denies urinary urgency Musc Reports back pain (The the left side), Reports arthralgias (multiple joints (bilateral elbows and knees)), Reports joint swelling (right PIP joint), Reports numbness (left proximal thigh) and Denies tingling Neuro Denies Abnormal speech present, Denies behavioral changes, Denies vertigo, Denies dizziness, Denies headache(s), Denies loss of vision, Denies memory loss, Reports numbness (left proximal thigh) and Denies tingling Psych Denies anxiety, Denies behavioral changes, Denies depression, Denies memory loss and Denies panic attacks Terry/Lymph Denies easy bleeding and Denies easy bruising Aller/Immun Denies wheezing Physical exam (Primary Care) Vital Signs: Last Vital Signs Temp 98.1 F 05/27/24 13:36 Pulse 76 05/27/24 13:36 Resp 20 05/27/24 13:36 BP 120/82 05/27/24 13:36 Pulse Ox 99 05/27/24 13:36 Oxygen Delivery Method Room Air 05/27/24 13:36 BMI result Body Mass Index 26.6 Tobacco/Smoking Status: Tobacco use Status Tobacco use date assessed 05/27/24 05/27/24 13:47 Patient Tobacco Use Status Former Tobacco user 05/27/24 13:47 Tobacco use type Cigarette 05/27/24 13:47 e-Cigarette/Vaping Use Never Used 05/27/24 13:47 Thrive Assessment: Date of Thrive Assessment Date Thrive assessed 05/27/24 05/27/24 13:47 Currently or been in a relationship where the following occur: No concerns reported Const General: healthy appearing, no acute distress, alert and awake Nutritional Appearance: well nourished Orientation/consciousness: oriented to person, oriented to place and oriented to time HENMT Ears: TM's normal bilaterally General nose exam: Normal nasal mucous membranes and turbinates present Eyes Conjunctivae: conjunctivae normal Sclerae: sclerae normal Pupils: Equal, round and reactive pupils present Neck Neck: Yes no lymphadenopathy and Yes no JVD Thyroid: Thyroid normal Carotids: no bruits Resp Effort & Inspection: normal respiratory effort and not tachypneic Auscultation: no crackles, no rales, no rhonchi and no wheezes Cardio Rate: regular rate Rhythm: regular rhythm Heart sounds: no murmurs and normal S1 and S2 GI Palpation (GI): Soft to palpation, nontender, no hepatomegaly and no splenomegaly Auscultation: normal bowel sounds General: Yes no CVA tenderness Back/Spine/Pelvis Back: no CVA tenderness Thoracic/Lumbar Spine: thoracic spinal tenderness (left side) and lumbar spinal tenderness (left side) Skin General skin exam: no rashes or lesions noted and dry skin Neuro General: oriented to person, oriented to place and oriented to time Cranial nerves: Yes Equal, round and reactive pupils present Speech: No Abnormal speech present Gait exam (Neuro): Normal gait present Motor exam (neuro): no tremor noted Extrem Right upper extremity: full ROM, elbow/forearm Details: tenderness Location: of the antecubital fossa and Extremity exam: right hand (pointer finger PIP joint edema and tender) Left upper extremity: full ROM Right lower extremity: full ROM; no edema Left lower extremity: full ROM and hip/thigh Details: tenderness Location: of the proximal upper leg Location: laterally and other; no swelling; no edema Psych Mental Status: mental status grossly normal Speech and movement: Normal speech and movement present Affect: normal affect Attitude: cooperative Thought process: Normal thought process present Coding Level of Care Code Est Pt Level 4 (63911) Diagnoses Mass of right forearm R22.31 Multiple joint pain M25.50 Low back pain without sciatica, unspecified back pain laterality, unspecified chronicity M54.50 Chronicity: unspecified Back pain laterality: unspecified Sciatica presence: without sciatica Finger pain, right M79.644 Time Spent (min) 38 Assessment & Plan Assessment & Plan (1) Mass of right forearm: Code(s): R22.31 - Localized swelling, mass and lump, right upper limb Category: Medical Plan: Soft tissue ultrasound ordered (2) Multiple joint pain: Code(s): M25.50 - Pain in unspecified joint Category: Medical Plan: Meloxicam 15 mg daily ordered. Cyclobenzaprine increased to 10 mg p.o. at bedtime p.r.n. the patient was referred to rheumatology to further evaluate (3) Lower back pain: Code(s): M54.50 - Low back pain, unspecified Category: Medical Qualifiers: Chronicity: unspecified Back pain laterality: unspecified Sciatica presence: without sciatica Qualified Code(s): M54.50 - Low back pain, unspecified Plan: Lumbar x-ray was ordered (4) Finger pain, right: Code(s): M79.644 - Pain in right finger(s) Category: Medical Plan: Positive range of motion. Meloxicam 15 mg daily ordered Orders: Orders XR lumbar spine 2-3V Today M54.50 - Low back pain, unspecified US extremity nonvascular ramirez Today R22.31 - Localized swelling, mass and lump, right upper limb Referrals Rheumatology Referral M25.50 - Pain in unspecified joint, Z87.2 - Personal history of diseases of the skin and subcutaneous tissue Medications: New meloxicam 15 mg PO DAILY 30 tabs 2RF M25.50 - Pain in unspecified joint cyclobenzaprine 10 mg PO BEDTIME PRN 30 tabs 2RF muscle spasm Discontinued cyclobenzaprine Discontinued Reason: Doctor's Order 5 mg PO TID PRN 30 tabs 0RF muscle spasm R10.32 - Left lower quadrant pain
== END 2024-05-27 14:34 | disposition home or self-care (01) ==
LOC: HO.HMCH 13:23
PROVIDERS: PCP Internal Medicine
DX: R22.31 Localized swelling, mass and lump, right upper limb (principal); M25.50 Pain in unspecified joint; M54.50 Low back pain, unspecified; M79.644 Pain in right finger(s)

== ENCOUNTER → 2024-05-27 13:22 | Outpatient (BNVA) | payer OTHER, SELFPAY | PROVIDERS: PCP Internal Medicine | DX: R22.31 Localized swelling, mass and lump, right upper limb (principal); M25.50 Pain in unspecified joint; M54.50 Low back pain, unspecified; M79.644 Pain in right finger(s) | CPT/HCPCS: 99212 ==

== ENCOUNTER 2024-05-30 10:10 | Outpatient (REF) | payer OTHER, SELFPAY ==
--- NOTE | ~2024-05-30 | XR_ITS ---
EXAMINATION: XR LUMBOSACRAL SPINE CLINICAL INFORMATION: M54.50 - Low back pain, unspecified COMPARISON: None available. TECHNIQUE: Three views of the lumbosacral spine. FINDINGS: There is a minimal levoconvex scoliosis, apex at L3. There is a normal lordosis. There is normal alignment. There is no fracture, compression deformity, or suspicious bone lesion. There is normal facet alignment. No significant facet arthrosis. Disc spaces appear preserved. The sacrum appears intact. Mild arthrosis noted in the SI joints. XR/XR lumbar spine 2-3V IMPRESSION: 1. Minimal levoconvex scoliosis. Otherwise, normal examination. Electronically signed by: Glen Barcenas MD 06/02/2024 10:59 AM EDT
== END 2024-05-30 10:11 | disposition home or self-care (01) ==
LOC: HO.XRAY 10:10
PROVIDERS: PCP Internal Medicine
DX: M54.50 Low back pain, unspecified (principal)
CPT/HCPCS: 72100

== ENCOUNTER → 2024-05-30 10:18 | Outpatient (BNV) | payer OTHER, SELFPAY | PROVIDERS: PCP Internal Medicine; Visit Provider Radiology Diagnostic Radiology | DX: M41.9 Scoliosis, unspecified (principal) | CPT/HCPCS: 72100 ==

== ENCOUNTER 2024-06-11 12:52 | Outpatient (AMB) | payer OTHER, SELFPAY ==
[2024-06-11 12:56] VITALS: BP 124/80; PULSE 76; O2SAT 97; BMI 26.6
--- NOTE | 2024-06-11 12:56 | MHC.PC.OV ---
Vital Signs 06/11/24 12:56 Height 5 ft 5 in Weight 160 lb BMI 26.6 BP 124/80 Blood Pressure Location Lt brachial Position Sitting Pulse 76 Pulse Source Pulse Oximeter Pulse Oximetry (%) 97 Oxygen Delivery Method Room Air Intake Visit Reasons: chest pain Public Works Inspector Required: Yes Public Works Inspector Language: Faroese Allergies No Known Allergies Allergy (Verified 06/11/24 12:56) Tobacco use date assessed: 05/27/24 Dental Screening [facility] Medical History Asthma Surgical History H/O tubal ligation Family History Mother Diabetes HTN (hypertension) Asthma Social History Household Members: Children [facility] Alcohol intake: current Alcohol intake frequency: a few times a week Comment: once a month 2 fariha Patient Tobacco Use Status: Former Tobacco user Tobacco use type: Cigarette Years Smoked: 10- quit 2009 e-Cigarette/Vaping Use: Never Used Second Hand Smoke Exposure: Yes service: No Current occupational status: employed 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 Sexual orientation: Straight/Heterosexual Gender identity: Female Cognitive needs: No Hearing needs: No Vision needs: Yes (Glasses) Female Reproductive History Menstrual Age of Menarche: 11 Questionnaire Thrive Questionnaire Date Thrive assessed: 05/27/24 I am a: Patient What is your living situation today?: I have a steady place to live Within the past 12 months, did the food you bought not last and you didn't have the money to get more?: Never true Within the past 12 months, did you worry whether your food would run out before you got money to buy more?: Never true Do you have trouble paying for medicines?: No Do you have trouble getting transportation to medical appointments?: No Do you have trouble paying your heating and electricity bill?: No Do you have trouble taking care of your child, family member or friend?: No Do you have trouble with day-to-day activities such as bathing, preparing meals, shopping, managing finances, etc.?: No Are you currently unemployed and looking for a job?: No Are you interested in more education?: No Please select the resources that you would like help with: None Currently or been in a relationship where the following occur: No concerns reported THRIVE Score: 0 JULIA-7 AMB Questionnaire JULIA-7 Date JULIA - 7 assessed: 03/11/24 Source: Developed by Drs. Uday Ariza, Wendy Ross, Mango Cuba and colleagues, with an educational rose marie from [employer]. Physical exam (Primary Care) Vital Signs: Last Vital Signs Pulse 76 06/11/24 12:56 BP 124/80 06/11/24 12:56 Pulse Ox 97 06/11/24 12:56 Oxygen Delivery Method Room Air 06/11/24 12:56 BMI result Body Mass Index 26.6 Tobacco/Smoking Status: Tobacco use Status Tobacco use date assessed 05/27/24 06/11/24 13:02 Patient Tobacco Use Status Former Tobacco user 06/11/24 13:02 Tobacco use type Cigarette 06/11/24 13:02 e-Cigarette/Vaping Use Never Used 06/11/24 13:02 Thrive Assessment: Date of Thrive Assessment Date Thrive assessed 05/27/24 06/11/24 13:02 Currently or been in a relationship where the following occur: No concerns reported Const General: alert; No acute distress Eyes Conjunctivae: conjunctivae normal Resp Auscultation: clear to auscultation bilaterally Cardio Rate: regular rate Rhythm: regular rhythm GI Inspection: Yes normal to inspection Extrem General: Yes normal to inspection and No edema Coding Level of Care Code Est Pt Level 4 (38622) Diagnoses GERD (gastroesophageal reflux disease) K21.9 SOB (shortness of breath) on exertion R06.02 Asthma J45.909 Hypercholesterolemia E78.00 Assessment & Plan Assessment & Plan (1) GERD (gastroesophageal reflux disease): Code(s): K21.9 - Gastro-esophageal reflux disease without esophagitis Category: Medical Plan: Avoid the foods that causes that usually spicy foods, tomato products, juices, coffee, soda and foods that your sensitive to. After eating do not lie down, allow 3-4 hours before in lie down. And keep the head of bed above 30 degrees to avoid the acid from going up. (2) SOB (shortness of breath) on exertion: Code(s): R06.02 - Shortness of breath Category: Medical Plan: So far the workup cardiac negative stress test and echocardiogram (3) Asthma: Code(s): J45.909 - Unspecified asthma, uncomplicated Category: Medical Plan: On albuterol inhaler as needed (4) Hypercholesterolemia: Code(s): E78.00 - Pure hypercholesterolemia, unspecified Category: Medical Plan: Avoid fried foods, chicken skin, eggs, butter margarine, pastries and meat. Be it pork or beef they have a lot of cholesterol LDL goal of less than 130 and triglyceride of less than 150 Plan History of Present Illness The patient is a 43-year-old female presenting with left groin pain and concerns about hypercholesterolemia. The left proximal thigh pain originated in February and is associated with movement, potentially exacerbated by physical activity during a recent trip and routine lifting associated with her work. This pain extends toward the knee and was examined via ultrasound with no concerns for deep vein thrombosis. Her medical history reflects obesity, asthma, and scoliosis. Cholesterol screening conducted in February revealed elevated levels, leading to diet modification and subsequent weight loss. She also has a cyst on her right forearm scheduled for ultrasound evaluation and manages reflux symptoms, likely associated with dietary patterns. Additionally, the patient maintains active management of asthma with an albuterol inhaler on an as-needed basis. Health Maintenance - Cholesterol management discussed: LDL goal of less than 130 mg/dL, emphasis on dietary modification. - Blood work as of last visit shows total cholesterol at 220 mg/dL. - Echocardiogram in March reported normal left ventricular systolic function with an ejection fraction of 61% and no valvular abnormalities. - Up to date on mammogram as of August 2023. 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 - Reports recent weight loss through dietary adjustments, emphasizing a healthier diet. - Travel to [place] for a family event noted during history. Review of Systems - Musculoskeletal: Reports left groin and proximal thigh pain; denies forearm pain. - Respiratory: Reports shortness of breath; managed by albuterol as needed. - Cardiovascular: Denies chest pain. - Gastrointestinal: Reports reflux symptoms; denies nausea or vomiting. - Dermatological: Reports presence of a cyst on the forearm. - Neurological: Denies dizziness or headaches. - General: Reports weight loss. Physical Exam Results - Echocardiogram: Normal left ventricular systolic function, ejection fraction of 61%. - LDL Cholesterol: Elevated at 147 mg/dL. - Total Cholesterol: Elevated at 220 mg/dL. - Blood work in February: Normal complete blood count, electrolytes, renal function, glucose, liver function tests; low vitamin D noted. Plan For the left groin pain, I have recommended continued conservative management with heat therapy and limited strain from work-related activities. Concerning hypercholesterolemia, dietary modifications focusing on reducing cholesterol intake and promoting ongoing weight loss were reinforced. Past investigations including the echocardiogram were normal, which reassures current cardiac status. Asthma management will continue with the current inhaler regimen, and monitoring any exacerbation is advised. For the forearm cyst, I will follow up with the ultrasound results and monitor unless symptomatic. Patient was informed and verbally consented to the use of an ambient scribe for clinic note documentation during this visit. Discussion Notes During the visit, the patient and I discussed the nature of her left groin pain and concluded that muscular strain could be contributing, potentially aligned with her occupational duties. Dietary counseling was revisited, with emphasis on cholesterol management through diet, revisiting the blood lipid results from February. I advised on repeating lipid panels to evaluate improvements post dietary changes and weight loss. We discussed benign nature of the forearm cyst and agreed on monitoring unless symptomatic. Patient Instructions - Continue applying heat therapy to the left thigh as needed. - Limit physical strain and avoid activities that exacerbate groin pain. - Adhere to the dietary recommendations, including avoiding fried foods and focusing on vegetables, fish, and lean meats. - Continue using albuterol inhaler as needed for asthma symptoms. - Watch for any changes in the cyst on the forearm and report any new symptoms. - Schedule a cholesterol recheck after continued dietary adjustments and weight loss. - Follow up for the ultrasound to evaluate the forearm cyst as scheduled. - Return for care if new symptoms develop or if there is no improvement in current symptoms. Orders: Orders Lipid Panel Today E78.00 - Pure hypercholesterolemia, unspecified Comprehensive Met. Panel Today E78.00 - Pure hypercholesterolemia, unspecified
--- OUTSIDE RECORDS SUMMARY | 2024-06-11 15:15 | XMS_ITS | Encounter Summary ---
Author Organization [facility] Address [address] [place] [address] Care Team Providers Care Associate Programmer Analyst Name Role Phone Mikey George MD Primary Care Provider Ton Rodríguez MD Primary Care Provider Unavail Isabel Toledo DO Primary Care Pro vider Unavailable Lisette Aquino MD Primary Care Provider [phone] Reason for Visit * Reason Onset Date Comments Form 10/26/2014 head start Encounter Details Date Type Department Care Team Description 10/26/2014 Telephone Adult Medicine [facility] [address] [place] [address] Mikey George MD Form (head start) Social History Tobacco Use Types Packs/Day Years Used Date Smoking Tobacco: Former Cigarettes Q uit: 02/26/2011 Smokeless Tobacco: Never Alcohol Use Standard Drinks/Week Comments Not Asked 0 (1 standard drink = 0.6 oz pur e alcohol) Physical Activity Answer Date Recorded On average, how many days pe r week do you engage in moderate to strenuous exercise (like walking fast, running, jogging, dancing, swimming, biking, or other activities that cause a light or heavy sweat)? 2 days 05/02/2019 On average, how many minutes do you engage in exercise at this level? 40 min 05/02/2019 Stress Answer Date Recorded Do you feel stress - tense, restless, nervous, or anxious, or unable to sleep at night because your mind is troubled all the time - these days? Only a little 05/02/2019 Intimate Partner Violence Answer Date R ecorded Within the last year, have y ou been afraid of your partner or ex-partner? No 05/02/2019 Within the last year, have y ou been humiliated or emotionally abused in other ways by your partner or ex-partner? No Within the last year, have y ou been kicked, hit, slapped, or otherwise physically hurt by your partner or ex-partner? No 05/02/2019 Within the last year, have y ou been raped or forced to have any kind of sexual activity by your partner or ex-partner? No 05/02/2019 Sex Assigned at Date Recorded Not on file Job Start Date Occupation Industry Not on file Not on file Not on file documented as of this encounter Miscellaneous Notes * Telephone Encounter - Amy Velasquez M.A. - 10/28/2014 11:39 AM EDT Pt has not returned call--form is mailed to home address * Telephone Encounter - Laura Olsen L.P.N. 

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
== END 2024-06-11 13:51 | disposition home or self-care (01) ==
LOC: HO.HMCH 12:52
PROVIDERS: PCP Internal Medicine; Visit Provider Internal Medicine
DX: K21.9 Gastro-esophageal reflux disease without esophagitis (principal); R06.02 Shortness of breath; J45.909 Unspecified asthma, uncomplicated; E78.00 Pure hypercholesterolemia, unspecified

== ENCOUNTER → 2024-06-11 12:52 | Outpatient (BNVA) | payer OTHER, SELFPAY | PROVIDERS: PCP Internal Medicine; Visit Provider Internal Medicine | DX: K21.9 Gastro-esophageal reflux disease without esophagitis (principal); R06.02 Shortness of breath; J45.909 Unspecified asthma, uncomplicated; E78.00 Pure hypercholesterolemia, unspecified | CPT/HCPCS: 99212 ==

== ENCOUNTER 2024-06-17 10:49 | Outpatient (REF) | payer OTHER, SELFPAY ==
[2024-06-17 12:29] LABS: Alanine Aminotransferase 20 U/L (0-31); Alkaline Phosphatase 62 U/L (39-117); Anion Gap 8 (12-20); Aspartate Amino Transferase 26 U/L (5-31); Bilirubin Total 0.5 mg/dL (0.0-1.0); Blood Urea Nitrogen 12 mg/dL (9-16); Carbon Dioxide 28 mmol/L (22-29); Chloride 106 mmol/L (96-108); Cholesterol 210 mg/dL (<200); Estimated Glomerular Filt Rate > 60; Glucose Random 97 mg/dL (60-115); HDL Cholesterol 59 mg/dL (>40); LDL Cholesterol Calculated 120 mg/dL (<100); Potassium 3.8 mmol/L (3.3-5.1); Sodium 138 mmol/L (135-145); Total Protein 6.8 g/dL (6.5-8.0); Triglycerides 158 mg/dL (<150)
--- OUTSIDE RECORDS SUMMARY | 2024-06-17 12:49 | XMS_ITS | Encounter Summary ---
Author Organization [facility] Address [address] [place] [address] Care Team Providers Care Crayon Grader Name Role Phone Mikey George MD Primary Care Provider Ton Rodríguez MD Primary Care Provider Unavail Isabel Toledo DO Primary Care Pro vider Unavailable Lisette Aquino MD Primary Care Provider [phone] Reason for Visit * Reason Onset Date Comments Form 10/26/2014 head start Encounter Details Date Type Department Care Team Description 10/26/2014 Telephone Adult Medicine [facility] [address] [place] [address] Mikey George MD Form (head start) Social [...] 10/26/2014 11:22 AM EDT 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
--- OUTSIDE RECORDS SUMMARY | 2024-06-17 12:50 | XMS_ITS | Encounter Summary ---
Author Organization [facility] Address [address] [place] [address] Care Team Providers Care Reinforcing Iron Worker Helper Name Role Phone Ton Abad MD Primary Care Provider Unavail able Isabel Joseph DO Primary Care Pro vider Unavailable Lisette Aquino MD Primary Care Provider [phone] Encounter Details Date Type Department Care Team Description 10/08/2015 Photograph Editor Report Medical Records [address] [place] [address] Jose Sutherland Social History Tobacco Use Types Packs/Day Years [...] on file documented as of this encounter Plan of Treatment Not on file documented as of this encounter Visit Diagnoses Not on filedocumented in this encounter Care Teams Reinforcing Iron Worker Helper Relationship Specialty Start Date End Date Ton Abad MD PCP - General Internal Medicine 09/22/15 05/01/19 Isabel Joseph DO PCP - General Internal Medicine 05/02/19 10/26/20 Lisette Aquino MD [address] [place] [id number] PCP - General Internal Medicine 10/27/20 documented as of this encounter
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
== END 2024-06-17 10:50 | disposition home or self-care (01) ==
LOC: HO.LAB 10:49
PROVIDERS: PCP Internal Medicine; Visit Provider Internal Medicine
DX: E78.00 Pure hypercholesterolemia, unspecified (principal)
CPT/HCPCS: 36415; 80053; 80061

== ENCOUNTER 2024-06-25 13:35 | Outpatient (REF) | payer OTHER, SELFPAY ==
--- NOTE | ~2024-06-25 | US_ITS ---
CLINICAL HISTORY: R22.31 - Localized swelling, mass and lump, right upper limb --- Additional Notes o r Special Instructions: right antecubital area US right AC joint Comparison: None Findings: There is a complex avascular fluid collection measuring 1.3 x 1.4 x 1.1 cm. This may the related to distended bursa, AC joint effusion, or subdeltoid effusion. Correlate for localized pain versus rotator cuff pathology. IMPRESSION: 1. Loculated fluid collection with differential considerations noted. Correlate clinically. Consider shoulder MRI to further evaluate. This document has been electronically signed by: Justin Sanderson MD on 06/27/2024 08:32:23
--- OUTSIDE RECORDS SUMMARY | 2024-06-25 14:55 | XMS_ITS | Encounter Summary ---
Author Organization [facility] Address [address] [place] [address] Care Team Providers Care Desk Lieutenant Name Role Phone Mikey George MD Primary Care Provider Ton Rodríguez MD Primary Care Provider Unavail Isabel Toledo DO Primary Care Pro vider Unavailable Lisette Aquino MD Primary Care Provider Reason for Visit * Reason Onset Date Comments Form 10/26/2014 head start Encounter Details Date Type Department Care Team Description 10/26/2014 Telephone Adult Medicine [facility] [address] [place] [address] Mikey George MD Form (head start) Social [...] 10/26/2014 11:22 AM EDT 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
--- OUTSIDE RECORDS SUMMARY | 2024-06-25 14:55 | XMS_ITS | Encounter Summary ---
Author Organization [facility] Address [address] [place] [address] Care Team Providers Care School Services Officer Name Role Phone Ton Abad MD Primary Care Provider Unavail able Isabel Joseph DO Primary Care Pro vider Unavailable Lisette Aquino MD Primary Care Provider [phone] Encounter Details Date Type Department Care Team Description 04/09/2019 Release of Information Medical Records [address] [place] [address] Abstract, Provider Social History Tobacco Use Types Packs/Day Years Used Date Smoking Tobacco: Former Cigarettes Q uit: 02/26/2011 Smokeless Tobacco: Never Alcohol Use Standard Drinks/Week Comments No 0 (1 standard drink = 0.6 oz [...] on filedocumented in this encounter Care Teams School Services Officer Relationship Specialty Start Date End Date Ton Abad MD PCP - General Internal Medicine 09/22/15 05/01/19 Isabel Joseph DO PCP - General Internal Medicine 05/02/19 10/26/20 Lisette Aquino MD [address] [place] [id number] PCP - General Internal Medicine 10/27/20 documented as of this encounter
--- OUTSIDE RECORDS SUMMARY | 2024-06-25 14:55 | XMS_ITS | Encounter Summary ---
Author Organization [facility] Address [address] [place] [address] Care Team Providers Care Junk Dealer Name Role Phone Mikey George MD Primary Care Provider Ton Rodríguez MD Primary Care Provider Unavail Isabel Toledo DO Primary Care Pro vider Unavailable Lisette Aquino MD Primary Care Provider [phone] Encounter Details Date Type Department Care Team Description 10/21/2014 Release of Information Medical Records [address] [place] [address] Abstract, Provider Social History Tobacco Use Types [...] on filedocumented in this encounter Care Teams Junk Dealer Relationship Specialty Start Date End Date Mikey George MD PCP - General Internal Medicine 09/30/14 09/21/15 Ton Abad MD PCP - General Internal Medicine 09/22/15 05/01/19 Isabel Joseph DO PCP - General Internal Medicine 05/02/19 10/26/20 Lisette Aquino MD [address] [place] [id number] PCP - General Internal Medicine 10/27/20 documented as of this encounter
== END 2024-06-25 13:36 | disposition home or self-care (01) ==
LOC: HO.US 13:35
PROVIDERS: PCP Internal Medicine
DX: R22.31 Localized swelling, mass and lump, right upper limb (principal)
CPT/HCPCS: 76882

== ENCOUNTER → 2024-06-25 13:36 | Outpatient (BNV) | payer OTHER, SELFPAY | PROVIDERS: PCP Internal Medicine; Visit Provider Specialist | DX: R22.31 Localized swelling, mass and lump, right upper limb (principal) | CPT/HCPCS: 76882 ==

== ENCOUNTER 2024-07-23 15:47 | Outpatient (REF) | payer OTHER, SELFPAY ==
--- NOTE | ~2024-07-23 | MR_ITS ---
CLINICAL HISTORY: R22.31 - Localized swelling, mass and lump, right upper limb --- Additional Notes o r Special Instructions: Mass at the right antecubital fossa MR right elbow with and without gadolinium Comparison: US - US EXTREMITY NONVASCULAR STARR - 06/25/24 14:03 EDT Findings: No fracture or dislocation. Minimal ulnohumeral osteoarthritis. No elbow joint effusion. A multilocular T2 hyperintense T1 hypointense nonenhancing mass at the volar aspect of the radiocapitellar joint measures 1.1 x 1.3 x 1.7 cm. This is separate from the expected location of the bicipitoradial bursa. No other masses or focal fluid collections. The ulnar collateral ligament and lateral collateral ligament complex are intact. The brachialis, biceps, and triceps tendon insertions are intact. The origins of the common flexor and extensor tendons are intact. The course, caliber, and signal intensity of the ulnar nerve are unremarkable. IMPRESSION: Multilocular 1.7 cm fluid collection at the volar aspect of the radiocapitellar joint, favored to represent a benign synovial cyst. This document has been electronically signed by: Mamadou Ibrahim DO on 07/25/2024 09:33:29
--- OUTSIDE RECORDS SUMMARY | 2024-07-23 16:09 | XMS_ITS | Encounter Summary ---
Author Organization [facility] Address [address] [place] [address] Care Team Providers Care Workday Financials Consultant Name Role Phone Mikey George MD Primary Care Provider Ton Rodríguez MD Primary Care Provider Unavail Isabel Toledo DO Primary Care Pro vider Unavailable Lisette Aquino MD Primary Care Provider [phone] Encounter Details Date Type Department Care Team Description 10/21/2014 Release of Information Medical Records [address] [place] [address] Abstract, Provider Social History Tobacco Use Types [...] on filedocumented in this encounter Care Teams Workday Financials Consultant Relationship Specialty Start Date End Date Mikey George MD PCP - General Internal Medicine 09/30/14 09/21/15 Ton Abad MD PCP - General Internal Medicine 09/22/15 05/01/19 Isabel Joseph DO PCP - General Internal Medicine 05/02/19 10/26/20 Lisette Aquino MD [address] [place] [phone] PCP - General Internal Medicine 10/27/20 documented as of this encounter
[2024-07-23] MEDS: gadobutroL 7.5 ML VIAL IVPUSH (16:42)
== END 2024-07-23 15:48 | disposition home or self-care (01) ==
LOC: HO.MRI 15:47
PROVIDERS: PCP Internal Medicine
DX: R22.31 Localized swelling, mass and lump, right upper limb (principal)
CPT/HCPCS: 73223; A9585

== ENCOUNTER → 2024-07-23 15:54 | Outpatient (BNV) | payer OTHER, SELFPAY | PROVIDERS: PCP Internal Medicine; Visit Provider Radiology Diagnostic Radiology | DX: R22.31 Localized swelling, mass and lump, right upper limb (principal) | CPT/HCPCS: 73223 ==

== ENCOUNTER 2024-08-15 09:00 | Outpatient (REF) | payer OTHER, SELFPAY ==
--- NOTE | ~2024-08-15 | MM_ITS ---
EXAMINATION: MM SCREENING DIGITAL BREAST TOMOSYNTHESIS, BILATERAL CLINICAL INFORMATION: Screening. Asymptomatic. COMPARISON: Mammography: Comparison is made with available priors TECHNIQUE: Digital breast mammography with tomosynthesis is performed in both the craniocaudal and mediolateral oblique views along with computer-aided detection (CAD). FINDINGS: The breasts are heterogeneously dense, which may obscure small masses (ACR BI-RADS breast composition Category c). There are no significant masses, abnormal calcifications, or other abnormalities. MM/MM tomosynthesis screening BI IMPRESSION: No mammographic evidence of malignancy. ASSESSMENT: BI-RADS BI-RADS 1 - Negative RECOMMENDATION: Routine annual mammography screening. 1 year F/U This examination should not preclude the clinical evaluation of a suspicious palpable abnormality. This patient's information was entered into a reminder system with a target due date for their next mammogram. Electronically signed by: Marly Guaman DO 08/21/2024 12:21 PM EDT
== END 2024-08-15 09:01 | disposition home or self-care (01) ==
LOC: HO.MAMMO 09:00
PROVIDERS: PCP Internal Medicine; Visit Provider Internal Medicine
DX: Z12.31 Encounter for screening mammogram for malignant neoplasm of breast (principal)
CPT/HCPCS: 77063; 77067

== ENCOUNTER → 2024-08-15 09:15 | Outpatient (BNV) | payer OTHER, SELFPAY | PROVIDERS: PCP Internal Medicine; Visit Provider Internal Medicine | DX: Z12.31 Encounter for screening mammogram for malignant neoplasm of breast (principal) | CPT/HCPCS: 77063; 77067 ==

== ENCOUNTER 2024-11-27 09:16 | Outpatient (AMB) | payer OTHER, SELFPAY ==
[2024-11-27 09:19] VITALS: BP 122/90; PULSE 87; RESP 18; TEMP 36.2; O2SAT 97; BMI 25.5
--- NOTE | 2024-11-27 09:19 | MHC.PC.OV ---
Vital Signs 11/27/24 09:19 Height 5 ft 5 in Weight 153 lb 2 oz BMI 25.5 BP 122/90 H Blood Pressure Location Lt brachial Position Sitting Respiration 18 Pulse 87 Pulse Source Pulse Oximeter Temp 97.1 F Temp Source Temporal Artery Scan Pulse Oximetry (%) 97 Oxygen Delivery Method Room Air Intake Visit Reasons: lower back pain Certified Nuclear Medicine Technologist Required: No Accompanied by: Self / Same As Patient Allergies No Known Allergies Allergy (Verified 11/27/24 09:20) Medication List - Last Reconciled 11/27/24 by Makayla Holman MD albuterol sulfate 90 mcg/actuation (Ventolin HFA) 2 puffs inhalation Q6H PRN cyclobenzaprine 10 mg PO BEDTIME PRN meloxicam 15 mg PO DAILY tacrolimus 0.1% 1 appl topical BID triamcinolone acetonide 0.1% 1 appl topical BID-TID Tobacco use date assessed: 11/27/24 Dental Screening Dental Screen Date: 11/27/24 Did you have a dental visit in the last 12 months?: Yes Did you have a dental problem in the last 6 months where you did not have access to dental care?: No Was dental information given to patient?: Patient has dentist HPI HPI Comments History of Present Illness Details The patient is a 44-year-old female presenting with lower back pain. The lower back pain began suddenly last night while the patient was walking and preparing to take a shower. The pain is described as severe, rated at 7 out of 10, and is localized to the lower back without any preceding heavy lifting or trauma. The patient has taken ibuprofen 800 mg and cyclobenzaprine, but these medications provided no relief, although the muscle relaxant induced sleep. The patient has a history of osteoarthritis for which she takes meloxicam, although not consistently every day. She was advised to stop meloxicam temporarily and use ibuprofen 800 mg every eight hours instead. 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 Sexual orientation: Straight/Heterosexual Gender identity: Female Cognitive needs: No Hearing needs: No Vision needs: Yes (Glasses) Female Reproductive History Menstrual Age of Menarche: 11 Questionnaire Thrive Questionnaire Date Thrive assessed: 03/11/24 I am a: Patient What is your living situation today?: I have a steady place to live Within the past 12 months, did the food you bought not last and you didn't have the money to get more?: Never true Within the past 12 months, did you worry whether your food would run out before you got money to buy more?: Never true Do you have trouble paying for medicines?: No Do you have trouble getting transportation to medical appointments?: No Do you have trouble paying your heating and electricity bill?: No Do you have trouble taking care of your child, family member or friend?: No Do you have trouble with day-to-day activities such as bathing, preparing meals, shopping, managing finances, etc.?: No Are you currently unemployed and looking for a job?: No Are you interested in more education?: No Please select the resources that you would like help with: None Currently or been in a relationship where the following occur: No concerns reported THRIVE Score: 0 JULIA-7 AMB Questionnaire JULIA-7 Date JULIA - 7 assessed: 03/11/24 Source: Developed by Drs. Uday Ariza, Wendy Ross, Mango Cuba and colleagues, with an educational rose marie from [employer]. Review of Systems Const Details: Positives besides what was mentioned in HPI are in BOLD Constitutional: No Weight Change, No Fever, No Chills, No Night Sweats, No Fatigue, No Malaise ENT/Mouth: No Hearing Changes, No Ear Pain, No Nasal Congestion, No Sinus Pain, No Hoarseness, No sore throat, No Rhinorrhea, No Swallowing Difficulty Eyes: No Eye Pain, No Swelling, No Redness, No Foreign Body, No Discharge, No Vision Changes Cardiovascular: No Chest Pain, No SOB, No PND, No Dyspnea on Exertion, No Orthopnea, No Claudication, No Edema, No Palpitations Respiratory: No Cough, No Sputum, No Wheezing, No Smoke Exposure, No Dyspnea Gastrointestinal: No Nausea, No Vomiting, No Diarrhea, No Constipation, No Pain, No Heartburn, No Anorexia, No Dysphagia, No Hematochezia, No Melena, No Flatulence, No Jaundice Genitourinary: No Dysmenorrhea, No DUB, No Dyspareunia, No Dysuria, No Urinary Frequency, No Hematuria, No Urinary Incontinence, No Urgency, No Flank Pain, No Urinary Flow Changes, No Hesitancy Musculoskeletal: No Arthralgias, No Myalgias, No Joint Swelling, No Joint Stiffness, No Back Pain, No Neck Pain, No Injury History Skin: No Skin Lesions, No Pruritis, No Hair Changes, No Breast/Skin Changes, No Nipple Discharge Neuro: No Weakness, No Numbness, No Paresthesias, No Loss of Consciousness, No Syncope, No Dizziness, No Headache, No Coordination Changes, No Recent Falls Psych: No Anxiety/Panic, No Depression, No Insomnia, No Personality Changes, No Delusions, No Rumination, No SI/HI/AH/VH, No Social Issues, No Memory Changes, No Violence/Abuse Hx., No Eating Concerns Heme/Lymph: No Bruising, No Bleeding, No Transfusions History, No Lymphadenopathy Endocrine: No Polyuria, No Polydipsia, No Temperature Intolerance Physical exam (Primary Care) Vital Signs: Last Vital Signs Temp 97.1 F 11/27/24 09:19 Pulse 87 11/27/24 09:19 Resp 18 11/27/24 09:19 BP 122/90 H 11/27/24 09:19 Pulse Ox 97 11/27/24 09:19 Oxygen Delivery Method Room Air 11/27/24 09:19 BMI result Body Mass Index 25.5 Tobacco/Smoking Status: Tobacco use Status Tobacco use date assessed 11/27/24 11/27/24 09:28 Patient Tobacco Use Status Former Tobacco user 11/27/24 09:28 Tobacco use type Cigarette 11/27/24 09:28 e-Cigarette/Vaping Use Never Used 11/27/24 09:28 Thrive Assessment: Date of Thrive Assessment Date Thrive assessed 03/11/24 11/27/24 09:28 Currently or been in a relationship where the following occur: No concerns reported Const Other: Pertinent findings are in BOLD GENERAL APPEARANCE NAD, activity normal for age, well developed/ well nourished, no cyanosis, pallor, or diaphoresis. EYES lids/conjunctiva normal. EARS/NOSE/THROAT Mucous membranes moist, nares normal, lips/teeth normal uvula midline without oral pharyngeal erythema, exudate or swelling TMs normal bilaterally. No lymphangitis/lymphedema. HEAD/NECK normocephalic atraumatic, no facial trauma, neck is supple. RESPIRATORY respiratory effort normal, speaks in full sentences, no tripod position, no accessory muscle use. Lungs clear to auscultation without rhonchi, wheezes, rales CARDIAC Regular rate and rhythm, no edema. ABDOMINAL Soft, ND/NT. No evidence of fluid wave. No pulsatile masses on exam, rebound tenderness, Medrano sign or pain over Mcburney's point. MUSCLES/EXTREMITIES No abnormal range of motion, no swelling. Muscle spasm in the lower back. Leg raise test negative bilaterally. SKIN Warm, pink and dry. No rashes, dermatoses, petechiae or lesions. NEUROLOGICAL Speech is clear and appropriate. Normal level of consciousness. Gait and coordination are normal. 5/5 strength in all extremities. PSYCH Normal mood and affect. Judgement/competence is appropriate Coding Level of Care Code Est Pt Level 3 (82511) Diagnoses Spasm of lumbar paraspinous muscle M62.830 Time Spent (min) 20 Assessment & Plan Assessment & Plan (1) Spasm of lumbar paraspinous muscle: Code(s): M62.830 - Muscle spasm of back Category: Medical Plan: - Continue ibuprofen 800 mg every eight hours and add Tylenol for pain management. - Prescribed cyclobenzaprine to be taken up to three times daily, with caution advised against driving due to sedative effects. - Recommended rest and stretching exercises; advised to seek childcare worker if beneficial. Plan The patient was advised to continue with ibuprofen and Tylenol for pain management and to use cyclobenzaprine with caution due to its sedative effects. Rest and stretching exercises were recommended, and the patient was informed that childcare worker could be beneficial. Follow-up was suggested if symptoms persist or worsen, and the patient was encouraged to discuss any ongoing issues with her primary care physician. Medications: New cyclobenzaprine 10 mg PO TID 40 tabs 0RF ibuprofen 800 mg PO Q8H PRN 40 tabs 0RF pain acetaminophen ER (Tylenol Arthritis Pain) 650 mg PO Q8H PRN 60 tabs 0RF pain
== END 2024-11-27 10:11 | disposition home or self-care (01) ==
LOC: HO.HMCH 09:17
PROVIDERS: PCP Internal Medicine; Visit Provider Internal Medicine
DX: M62.830 Muscle spasm of back (principal)

== ENCOUNTER 2024-12-03 10:35 | Outpatient (AMB) | payer OTHER, SELFPAY ==
--- NOTE | 2024-12-03 10:36 | MHC.OFFVIS ---
Intake Visit Reasons: vaginal burning Sports Book Server: Sports Book Server Present (Viviana) Accompanied by: Self / Same As Patient Allergies No Known Allergies Allergy (Verified 12/03/24 10:40) Post menopausal: No Patient : No HPI HPI vaginal burning: Details: Patient is here because she has been experiencing vaginal burning and itching especially the last couple of days and was made worse with intercourse. She also had some other symptoms for which she saw her primary and was given muscle relaxants and is taking ibuprofen. She has not had a period since July she has been having some weight gain and loss fluctuations managed with Ozempic and going on and off it depending on income. She has a history of a tubal ligation she is wondering if she is grayson menopausal. 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 Sexual orientation: Straight/Heterosexual Gender identity: Female Cognitive needs: No Hearing needs: No Vision needs: Yes (Glasses) Female Reproductive History Menstrual Age of Menarche: 11 control method: none Total pregnancies: 5 Full term: 5 Ab induced: 1 Date of last pap smear: 09/20/21 (negative papsmear, negative hpv ) History of abnormal pap smear: Yes Date of Mammogram: 08/15/24 (bi rad 1) Physical Exam Other: External vulva dry vagina is reddened some lightly dry mucosa with thin white discharge which could be consistent with yeast vulvar but vulvar erythema points to yeast Assessment & Plan Assessment & Plan (1) Yeast infection involving the vagina and surrounding area: Code(s): B37.31 - Acute candidiasis of vulva and vagina Category: Medical Plan ---I reviewed her symptoms we reviewed what she may have done alleviate symptoms. I reviewed contributing factors to yeast infection including clothing that may be a little tight or does not permit air to pass to the vulva well, including non cotton underwear, nylon and polyester type workout clothes and yoga pants, use of panty liners pads for periods etc. My recommendations include use of the medication that we decided upon, allowing air to her vulva as much as possible including wearing cotton underwear and possibly no underwear at night when possible. Any other contributing factors were explored. I encouraged her not to scratch. I reviewed what to do when she feels symptoms first starting, (re-double her efforts at allowing air to the area.) At 1st she was going to do the Diflucan and then she decided she would try the cream I asked her to use it at least up until she feels better if 5 days is good that is fine discussed the challenges of the newer sex year Spandex on these while they may look and feel good they trap moisture and do not encourage air to her vulva which causes burning. Orders: Orders CT NG by PCR Vag/Cerv Today N89.8 - Other specified noninflammatory disorders of vagina, Z11.3 - Encounter for screening for infections with a predominantly sexual mode of transmission Bacterial Vaginosis Panel Today N89.8 - Other specified noninflammatory disorders of vagina Medications: New miconazole nitrate 2% (Miconazole-7) 1 appful vaginal BEDTIME 45 grams 2RF 7 days Coding Level of Care Code Est Pt Level 3 (80308) Diagnoses Yeast infection involving the vagina and surrounding area B37.31
== END 2024-12-03 14:10 | disposition home or self-care (01) ==
LOC: HO.HWSM 10:35
PROVIDERS: PCP Internal Medicine; Visit Provider Advanced Practice Midwife
DX: B37.31 Acute candidiasis of vulva and vagina (principal)
CPT/HCPCS: 99213

== ENCOUNTER 2024-12-03 10:35 | Outpatient (REF) | payer OTHER, SELFPAY ==
[2024-12-04 05:11] LABS: CT PCR NOT DETECTED (Not Detect.); NG PCR NOT DETECTED (Not Detect.)
[2024-12-04 05:12] LABS: Bacterial Vaginosis PCR NEGATIVE (Negative); Candida Group PCR DETECTED (Not Detect); Candida glab krusei PCR NOT DETECTED (Not Detect); Trichomonas vaginalis PCR NOT DETECTED (Not Detect)
== END 2024-12-03 10:36 | disposition home or self-care (01) ==
LOC: HO.LAB 10:35
PROVIDERS: PCP Internal Medicine; Visit Provider Advanced Practice Midwife
DX: B37.31 Acute candidiasis of vulva and vagina (principal); Z20.2 Contact with and (suspected) exposure to infections with a predominantly sexual mode of transmission; Z98.51 Tubal ligation status
CPT/HCPCS: 81515; 87491; 87591; 99212

== ENCOUNTER 2024-12-25 10:50 | Outpatient (AMB) | payer OTHER, SELFPAY ==
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
[2024-12-25 10:52] VITALS: BP 100/80; PULSE 85; O2SAT 96; BMI 25.0
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
--- OUTSIDE RECORDS SUMMARY | 2024-12-25 13:32 | XMS_ITS | Encounter Summary ---
Author Organization [facility] Address [address] [place] [address] Care Team Providers Care Career Developer Name Role Phone Mikey George MD Primary Care Provider Ton Rodríguez MD Primary Care Provider Unavail Isabel Toledo DO Primary Care Pro vider Unavailable Lisette Aquino MD Primary Care Provider [phone] Reason for Visit * Reason Onset Date Comments Form 10/26/2014 head start Encounter Details Date Type Department Care Team Description 10/26/2014 Telephone Adult Medicine [facility] [address] [place] [address] Mikey George MD Form (head start) Social [...] 10/26/2014 11:22 AM EDT Form completed ? 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
--- OUTSIDE RECORDS SUMMARY | 2024-12-25 13:32 | XMS_ITS | Encounter Summary ---
Author Organization [facility] Address [address] [place] [address] Care Team Providers Care Pole Sander Operator Name Role Phone Mikey George MD Primary Care Provider Ton Rodríguez MD Primary Care Provider Unavail Isabel Toledo DO Primary Care Pro vider Unavailable Lisette Aquino MD Primary Care Provider [phone] Encounter Details Date Type Department Care Team Description 10/21/2014 Release of Information Medical Records [address] [place] [id number] Abstract, Provider Social History Tobacco Use Types [...] on filedocumented in this encounter Care Teams Pole Sander Operator Relationship Specialty Start Date End Date Mikey George MD PCP - General Internal Medicine 09/30/14 09/21/15 Ton Abad MD PCP - General Internal Medicine 09/22/15 05/01/19 Isabel Joseph DO PCP - General Internal Medicine 05/02/19 10/26/20 Lisette Aquino MD [address] [place] [id number] PCP - General Internal Medicine 10/27/20 documented as of this encounter
--- OUTSIDE RECORDS SUMMARY | 2024-12-25 13:32 | XMS_ITS | Encounter Summary ---
Author Organization [facility] Address [address] [place] [address] Care Team Providers Care Lidar Analyst Name Role Phone Ton Abad MD Primary Care Provider Unavail able Isabel Joseph DO Primary Care Pro vider Unavailable Lisette Aquino MD Primary Care Provider [phone] Encounter Details Date Type Department Care Team Description 10/08/2015 Loan Approver Report Medical Records [address] [place] [address] Jose Sutherland Social History Tobacco Use Types [...] on filedocumented in this encounter Care Teams Lidar Analyst Relationship Specialty Start Date End Date Ton Abad MD PCP - General Internal Medicine 09/22/15 05/01/19 Isabel Joseph DO PCP - General Internal Medicine 05/02/19 10/26/20 Lisette Aquino MD [address] [place] [id number] PCP - General Internal Medicine 10/27/20 documented as of this encounter
--- OUTSIDE RECORDS SUMMARY | 2024-12-25 13:32 | XMS_ITS ---
Author Name [facility] Organization Unknown Care Team Organization Name Specialty Phone Email Start Date End Da te [facility] Lisette Aquino Primary Care 01/03/2022 4
--- OUTSIDE RECORDS SUMMARY | 2024-12-25 13:32 | XMS_ITS | Clinical Summary ---
Author Organization [facility] Address [address] [place] [address] Care Team Providers Care Recycle Driver Name Role Phone Lisette Aquino MD Primary Care Provider [phone] Allergies No known active allergies Medications Medication Sig Dispensed Refills Start Date End Date Status clobetasol (TEMOVATE) 0.05 % cream Use 1-2 times a day x 2 weeks, then stop. Avoid face and groin. 30 g 0 09/22/2019 Active Clobetasol Propionate 0.05 % Shampoo Apply 1 Film topically daily. Apply thin film to dry scalp once daily. Leave in for 15 minutes, add water, lather and rinse. Can do this x 2 weeks and then should stop. 1 Bottle 0 09/23/2019 Active alclomethasone (ACLOVATE) 0.05 % cream Apply twice daily for 3 to 5 days 30 g 0 02/17/2020 Active ALBUTEROL SULFATE 108 (90 Base) MCG/ACT Aero Soln Inhale 2 Puffs into the lungs every 4 hours as needed for Cough, Wheezing or Shortness of Breath. 8.5 g 0 06/15/2021 Active triamcinolone (KENALOG) 0.1 % cream Apply to affected area BID x 2 weeks 80 g 0 06/15/2021 Active Active Problems Problem Noted Date Psoriasis 05/02/2019 Mild intermittent asthma 05/13/2015 Immunizations Name Administration Dates Next Due COVID-19 (Pfizer) 11/22/2020,10/22/2020 PPD-RBMG 05/02/2019,04/03/2016,10/21/2014 Pneumoccoccal(Adult) Polysaccharide PPSV23 06/15 Tdap 04/05/2018,10/21/2014 Family History Medical History Relation Name Comments Hypertension Mother Relation Name Status Comments Mother Social History Tobacco Use Types Packs/Day Years [...] file Not on file Not on file Last Filed Vital Signs Vital Sign Reading Time Taken Comments Blood Pressure 102/78 06/15/2021 3:49 PM EDT Pulse 84 06/15/2021 3:49 PM EDT Temperature 36.8 C (98.2 F) 06/15/2021 3:49 PM EDT Respiratory Rate 16 06/15/2021 3:49 PM EDT Oxygen Saturation 98% 01/27/2016 1:28 PM EST Inhaled Oxygen Concentration - - Weight 72.6 kg (160 lb) 06/15/2021 3:49 PM EDT Height 165.1 cm (5' 5 ) 06/15/2021 3:49 PM EDT Body Mass Index 26.63 06/15/2021 3:49 PM EDT Plan of Treatment Health Maintenance Due Date Last Done Comments CERVICAL CANCER SCREENING 12/28/20172014 (External Completion) BASELINE HEALTH EXAM 40-64 11/23/202005/01, 05/02/2019, 06/07/2017, Additional history exists MAMMOGRAM 07/14/2022 07/14/2021 BMI CHECK/ADVISE 02/27/2024 06/15/2021, , 05/02/2019, Additional history exists DEPRESSION SCREENING/FOLLOWUP 02/27/2024 05/02/2019 SOCIAL NEEDS SCREENING 02/27/2024 CHOLESTEROL SCREENING 05/01/2024 05/02/2019 , 04/03/2016, 10/21/2014 Covid-19 Vaccine (2022-03 4 season) 2024 11/22/2020, 10/22/2020 INFLUENZA (#1) 2024 05/02/2019 (Refu sed), 12/29/2014 (Refused) DTAP/TDAP/TD (3 - Td or Tdap) 04/05/2028 04/05/2018, 10/21/2014 PNEUMOCOCCAL VACCINE FOR HIG H RISK PATIENTS (#2) 2045 06/15/2021 Care Teams Recycle Driver Relationship Specialty Start Date End Date Lisette Aquino MD [address] [place] [address] [phone] PCP - General Internal Medicine 10/27/20
== END 2024-12-25 11:45 | disposition home or self-care (01) ==
LOC: HO.RHES 10:51
PROVIDERS: PCP Internal Medicine; Visit Provider Internal Medicine Rheumatology
DX: M25.561 Pain in right knee (principal); M25.562 Pain in left knee; M77.11 Lateral epicondylitis, right elbow; M77.12 Lateral epicondylitis, left elbow; L40.9 Psoriasis, unspecified
CPT/HCPCS: 99204

== ENCOUNTER → 2024-12-25 10:50 | Outpatient (BNVA) | payer OTHER, SELFPAY | PROVIDERS: PCP Internal Medicine; Visit Provider Internal Medicine Rheumatology | DX: M25.561 Pain in right knee (principal); M25.562 Pain in left knee; G89.29 Other chronic pain | CPT/HCPCS: 99202 ==

== ENCOUNTER 2024-12-29 10:31 | Outpatient (REF) | payer OTHER, SELFPAY ==
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
== END 2024-12-29 10:32 | disposition home or self-care (01) ==
LOC: HO.XRAY 10:31
PROVIDERS: PCP Internal Medicine; Visit Provider Internal Medicine Rheumatology
DX: M25.561 Pain in right knee (principal); M25.562 Pain in left knee; M54.16 Radiculopathy, lumbar region
CPT/HCPCS: 73564; 99212

== ENCOUNTER → 2024-12-29 10:35 | Outpatient (BNV) | payer OTHER, SELFPAY | PROVIDERS: PCP Internal Medicine; Visit Provider Radiology Diagnostic Radiology | DX: M17.0 Bilateral primary osteoarthritis of knee (principal) | CPT/HCPCS: 73564 ==

== ENCOUNTER 2024-12-29 13:48 | Outpatient (AMB) | payer OTHER, SELFPAY ==
--- NOTE | 2024-12-29 14:08 | A.OFFPC_ITS ---
Vital Signs 12/29/24 14:09 Height 5 ft 5 in Weight 149 lb 6 oz BMI 24.9 BP 120/72 Blood Pressure Location Lt brachial Position Sitting Pulse 89 Pulse Source Pulse Oximeter Temp 97.1 F Temp Source Temporal Artery Scan Pulse Oximetry (%) 97 Oxygen Delivery Method Room Air Intake Visit Reasons: Pain in left knee Intake Note: Patient is here to follow up on Pain inleft knee. Body Technician Required: No Councillor [employer]: Not Required per policy Accompanied by: Self / Same As Patient Allergies No Known Allergies Allergy (Verified 12/29/24 14:38) Medication List - Last Reconciled 12/29/24 by Kam Lieberman PA-C acetaminophen ER (Tylenol Arthritis Pain) 650 mg PO Q8H PRN albuterol sulfate 90 mcg/actuation (Ventolin HFA) 2 puffs inhalation Q6H PRN cyclobenzaprine 10 mg PO BEDTIME PRN diclofenac sodium 1% 4 grams topical QID dupilumab (Dupixent) mg subcut [elbow band bilateral As directed] ibuprofen 800 mg PO Q8H PRN meloxicam 15 mg PO DAILY tacrolimus 0.1% 1 appl topical BID triamcinolone acetonide 0.1% 1 appl topical BID-TID Tobacco use date assessed: 12/29/24 Dental Screening Dental Screen Date: 11/27/24 HPI Pain in left knee HPI Details The patient is a 44-year-old female presenting with knee and leg pain. She reports that last night she experienced pain throughout her entire leg, and when she went to the bathroom, she noticed her veins were swollen. Elevating her feet on a pillow helped the pain go away. Currently, the pain is located from the knee down the side of the leg to the foot and is described as warm. She has experienced this type of pain before, but never this severe; previously, it would come and go. She denies any recent injury. A muscle relaxer and ibuprofen have not provided relief. The patient has a history of back pain, for which she was seen about two or three weeks ago. She denies a history of smoking. An x-ray of her knees performed today showed mild arthritis and findings suggestive of calcium phosphate arthropathy. 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 Sexual orientation: Straight/Heterosexual Gender identity: Female Cognitive needs: No Hearing needs: No Vision needs: Yes (Glasses) Female Reproductive History Menstrual Age of Menarche: 11 Questionnaire Thrive Questionnaire Date Thrive assessed: 03/11/24 I am a: Patient What is your living situation today?: I have a steady place to live Within the past 12 months, did the food you bought not last and you didn't have the money to get more?: Never true Within the past 12 months, did you worry whether your food would run out before you got money to buy more?: Never true Do you have trouble paying for medicines?: No Do you have trouble getting transportation to medical appointments?: No Do you have trouble paying your heating and electricity bill?: No Do you have trouble taking care of your child, family member or friend?: No Do you have trouble with day-to-day activities such as bathing, preparing meals, shopping, managing finances, etc.?: No Are you currently unemployed and looking for a job?: No Are you interested in more education?: No Please select the resources that you would like help with: None Currently or been in a relationship where the following occur: No concerns reported THRIVE Score: 0 JULIA-7 AMB Questionnaire JULIA-7 Date JULIA - 7 assessed: 03/11/24 Source: Developed by Drs. Uday Ariza, Wendy Ross, Mango Cuba and colleagues, with an educational rose marie from [employer]. Review of Systems Const Denies headache(s) Eyes Denies loss of vision ENT Denies vertigo, Denies dizziness, Denies headache(s) and Denies sore throat Card Denies chest pain, Denies leg edema and Denies lightheadedness Resp Denies cough, Denies hemoptysis and Denies wheezing GI Denies abdominal pain, Denies melena, Denies constipation, Denies diarrhea and Denies vomiting Denies urinary frequency, Denies dysuria and Denies urinary urgency Musc Denies arthralgias, Denies joint swelling, Denies numbness and Denies tingling Neuro Denies Abnormal speech present, Denies behavioral changes, Denies vertigo, Denies dizziness, Denies headache(s), Denies loss of vision, Denies memory loss, Denies numbness and Denies tingling Psych Denies anxiety, Denies behavioral changes, Denies depression, Denies memory loss and Denies panic attacks Terry/Lymph Denies easy bleeding and Denies easy bruising Aller/Immun Denies wheezing Physical exam (Primary Care) Vital Signs: Last Vital Signs Temp 97.1 F 12/29/24 14:09 Pulse 89 12/29/24 14:09 BP 120/72 12/29/24 14:09 Pulse Ox 97 12/29/24 14:09 Oxygen Delivery Method Room Air 12/29/24 14:09 BMI result Body Mass Index 24.9 Tobacco/Smoking Status: Tobacco use Status Tobacco use date assessed 12/29/24 12/29/24 14:13 Patient Tobacco Use Status Former Tobacco user 12/29/24 14:13 Tobacco use type Cigarette 12/29/24 14:13 e-Cigarette/Vaping Use Never Used 12/29/24 14:13 Thrive Assessment: Date of Thrive Assessment Date Thrive assessed 03/11/24 12/29/24 14:13 Currently or been in a relationship where the following occur: No concerns reported Const General: healthy appearing, no acute distress, alert and awake Nutritional Appearance: well nourished Orientation/consciousness: oriented to person, oriented to place and oriented to time HENMT Ears: TM's normal bilaterally General nose exam: Normal nasal mucous membranes and turbinates present Eyes Conjunctivae: conjunctivae normal Sclerae: sclerae normal Pupils: Equal, round and reactive pupils present Neck Neck: Yes no lymphadenopathy and Yes no JVD Thyroid: Thyroid normal Carotids: no bruits Resp Effort & Inspection: normal respiratory effort and not tachypneic Auscultation: no crackles, no rales, no rhonchi and no wheezes Cardio Rate: regular rate Rhythm: regular rhythm Heart sounds: no murmurs and normal S1 and S2 GI Palpation (GI): Soft to palpation, nontender, no hepatomegaly and no splenomegaly Auscultation: normal bowel sounds Skin General skin exam: no rashes or lesions noted and dry skin Neuro General: oriented to person, oriented to place and oriented to time Cranial nerves: Yes Equal, round and reactive pupils present Speech: No Abnormal speech present Gait exam (Neuro): Normal gait present Motor exam (neuro): no tremor noted Extrem Right upper extremity: full ROM Left upper extremity: full ROM Right lower extremity: full ROM; no edema Left lower extremity: full ROM; no edema Psych Mental Status: mental status grossly normal Speech and movement: Normal speech and movement present Affect: normal affect Attitude: cooperative Thought process: Normal thought process present Coding Level of Care Code Est Pt Level 3 (45196) Diagnoses Lumbar radiculopathy M54.16 Assessment & Plan Assessment & Plan (1) Lumbar radiculopathy: Code(s): M54.16 - Radiculopathy, lumbar region Category: Medical Plan: The patient's symptoms are concerning for a nerve issue, such as a lumbar radiculopathy, given the pain distribution down the side of the leg. While the patient has arthritis in her knees, the pain is not localized to the joint, making it a less likely primary cause. A blood clot is considered unlikely as the swelling was transient and has since resolved. Virchows triad negative To further evaluate for a nerve issue, an X-ray of the lumbar spine and a nerve test (EMG) of the left leg will be ordered. For symptomatic management of suspected neuropathic pain, the patient will be started on a trial of gabapentin 100 mg, to be taken at night initially. The patient is already scheduled for physical therapy from a previous visit, which is encouraged to continue as it may help with a potential pinched nerve by strengthening the core and stabilizing the back. Orders: Orders NE electromyogram (EMG) Today M54.16 - Radiculopathy, lumbar region XR lumbar spine 4V min Today M54.16 - Radiculopathy, lumbar region Medications: New gabapentin 100 mg PO BID 28 caps 0RF 14 days M54.16 - Radiculopathy, lumbar region
[2024-12-29 14:09] VITALS: BP 120/72; PULSE 89; TEMP 36.2; O2SAT 97; BMI 24.9
== END 2024-12-29 14:46 | disposition home or self-care (01) ==
LOC: HO.HMCH 13:49
PROVIDERS: PCP Internal Medicine; Visit Provider Physician Assistant
DX: M54.16 Radiculopathy, lumbar region (principal)

== ENCOUNTER 2025-01-01 12:10 | Outpatient (REF) | payer OTHER, SELFPAY ==
--- NOTE | ~2025-01-01 | XR_ITS ---
Examination: 5 view lumbar spine x-ray TECHNIQUE: AP, lateral, lateral spot, and bilateral oblique views of the lumbar spine Comparison 05-30-24 INDICATION:M54.16 - Radiculopathy, lumbar region FINDINGS: There are 5 nonrib-bearing lumbar segments. There is mild convex left curvature. Vertebral body height and alignment is preserved. There is questionable disc space narrowing in the mid to upper lumbar spine. There is minimal facet arthropathy at L4-5 and L5-S1. XR/XR lumbar spine 4V min IMPRESSION: Very mild degenerative changes. Electronically signed by: Swapnil Medina MD 01/01/2025 01:01 PM EST
== END 2025-01-01 12:11 | disposition home or self-care (01) ==
LOC: HO.XRAY 12:10
PROVIDERS: PCP Physician Assistant; Visit Provider Physician Assistant
DX: M54.16 Radiculopathy, lumbar region (principal)
CPT/HCPCS: 72110

== ENCOUNTER → 2025-01-01 12:17 | Outpatient (BNV) | payer OTHER, SELFPAY | PROVIDERS: PCP Physician Assistant; Visit Provider Radiology Diagnostic Radiology | DX: M54.16 Radiculopathy, lumbar region (principal); M51.369 Other intervertebral disc degeneration, lumbar region without mention of lumbar back pain or lower extremity pain | CPT/HCPCS: 72110 ==

== ENCOUNTER 2025-01-05 08:05 | Outpatient (REF) | payer OTHER, SELFPAY ==
--- NOTE | ~2025-01-05 | XR_ITS ---
EXAMINATION: XR SHOULDER, LEFT CLINICAL INFORMATION: M25.512 - Pain in left shoulder COMPARISON: None available. TECHNIQUE: Three views of the left shoulder. FINDINGS: Mild superior positioning of the distal clavicle with respect to the acromion could reflect age-indeterminate sprain injury. No visible acute fracture, dislocation or suspicious bony lesion. Glenohumeral joint space is maintained. No suspicious soft tissue findings. XR/XR shoulder LT min 2V IMPRESSION: Mild acromioclavicular malalignment could reflect sequela of age-indeterminate sprain injury. Electronically signed by: Salvador Hernandez MD 01/05/2025 03:18 PM EST
--- OUTSIDE RECORDS SUMMARY | 2025-01-05 08:13 | XMS_ITS | Clinical Summary ---
Author Organization [facility] Address [address] [place] [address] Care Team Providers Care Lead Recoverer Name Role Phone Lisette Aquino MD Primary Care Provider [phone] Allergies No known active allergies Medications Medication [...] RISK PATIENTS (#2) 2045 06/15/2021 Care Teams Lead Recoverer Relationship Specialty Start Date End Date Lisette Aquino MD [address] [place] [address] [id number] PCP - General Internal Medicine 10/27/20
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
== END 2025-01-05 08:06 | disposition home or self-care (01) ==
LOC: HO.HOSX 08:05
DX: S43.102A Unspecified dislocation of left acromioclavicular joint, initial encounter (principal)
CPT/HCPCS: 73030

== ENCOUNTER 2025-01-05 10:34 | Outpatient (AMB) | payer OTHER, SELFPAY ==
[2025-01-05 10:44] VITALS: BMI 24.8
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
== END 2025-01-05 10:57 | disposition home or self-care (01) ==
LOC: HO.HOS 10:35
PROVIDERS: PCP Internal Medicine
DX: S43.102A Unspecified dislocation of left acromioclavicular joint, initial encounter (principal)
CPT/HCPCS: 99203

== ENCOUNTER 2025-02-06 12:52 | Outpatient (RCR) | payer OTHER, SELFPAY ==
--- NOTE | 2025-02-06 15:10 | MHC.OT.DC ---
[facility] Office [address] [phone] F: [phone] F: [phone] Occupational Therapy Discharge Note Patient Name: Feroz Pardo Provider: Chidi Braden Diagnosis: PAIN IN R ELBOW Date of Evaluation: 01/09/25 Date of Discharge: 02/06/25 Treatments to Date: 2 Cancellations to Date: 2 No Shows to Date: 1 Discharge Status: Patient Elected to Stop Discharge Summary: MS PARDO WAS SEEN FOR TWO OT SESSIONS, AT THAT TIME SHE WAS MAKING IMPROVEMENTS WITH PAIN AND STRENGTH OF RUE. NO PAIN REPORTED IN LUE AT LAST TREATMENT SESSION. ADDITIONALLY, GENTLE STRENGTHENING WAS INTRODUCED WITH GOOD TOLERANCE. Pt WILL BE TRANSITIONED TO A HOME BASED PROGRAM AT THIS TIME Pt DID NOT CONTINUE WITH HER OT AFTER TWO CANCELLATIONS AND A NO-SHOW. Electronically Signed By: NADEEN KHALIL OTR/L Reviewed/agree with student documentation: N/A Therapist: Please Sign and return to therapist, thank you for your referral.
== END 2025-02-06 15:10 | disposition home or self-care (01) ==
LOC: HO.OT 12:52
PROVIDERS: PCP Internal Medicine; Visit Provider Internal Medicine Rheumatology
DX: M77.11 Lateral epicondylitis, right elbow (principal); M25.521 Pain in right elbow
CPT/HCPCS: 97110; 97140; 97165